=== PATIENT | female | born 1990 | race Caucasian/White ===

== ENCOUNTER 2017-04-14 13:48 | Emergency (ER) | payer MEDICAID ==
[2017-04-14] MEDS ORDERED: LIDOCAINE 1%/EPINEPHRINE INJ 20 ML VIAL INJ ONE (14:10)
--- NOTE | 2017-04-14 14:10 | ER Document Report ---
ED Psych Disorder / Suicide - General Mode of Arrival: Medic Information source: Patient - HPI Patient complains to provider of: Self injury Onset: Just prior to arrival Onset was: Sudden Suicide Risk Factors: Bipolar, Schizophrenia, Substance abuse Situational problems related to: Other - ex- Suicide Attempt Method: Stabbing/Cutting Injury to: Wrist - Left <HOMER CASTILLO - Last Filed: 04/14/17 14:34> <BENITA NELSON - Last Filed: 04/14/17 15:56> <JOI MORENO - Last Filed: 04/15/17 12:09> - General Chief Complaint: Laceration Stated Complaint: SELF INFLICTED INJURY/LEFT WRIST INJURY Time Seen by Provider: 04/14/17 14:02 Notes: Patient is a 27-year-old female presenting to the emergency department concerned of a self-inflicted wrist laceration that occurred approximately 1 hour prior to arrival. Patient states she used a box gluer and was mad at her ex- because "he wouldnt love her anymore and it hurt." Patient denies suicidal ideation at this time. Patient does admit that she was trying to kill herself when she cut her wrist, but she was drunk at the time. Patient states she drank heavily last night. Patient reports having cut herself in the past on her leg, but laceration to the distal she was ever done and she was "amazed by how it looked." Patient states that he has a history of substance abuse, but now she only uses [id number] cough medication. Patient states that her prior diagnosis is schizophrenia, bipolar disorder. Patient states she is at a depressed time in her life, and was recently put on Celexa, which she has not taken for a few weeks. (HOMER CASTILLO) - Related Data Allergies/Adverse Reactions: Penicillins Allergy (Verified 04/14/17 14:15) Home Medications: Current Home Medications Amitriptyline HCl [Elavil 100 mg Tablet] 100 mg PO DAILY 04/14/17 [History] Cholecalciferol (Vitamin D3) [Vitamin D3] 1,000 unit PO DAILY 04/14/17 [History] Citalopram Hydrobromide [Celexa 20 mg Tablet] 20 mg PO DAILY 04/14/17 [History] Docusate Sodium [Dok] 100 mg PO DAILY 04/14/17 [History] Hydroxyzine Pamoate 50 mg PO QHS 04/14/17 [History] Risperidone [Risperdal] 3 mg PO DAILY 04/14/17 [History] Past Medical History - General Information source: Patient - Social History Smoking Status: Current Every Day Smoker Cigarette use (# per day): Yes - 20 Frequency of alcohol use: Heavy Drug Abuse: Other - Cough syrup Family History: Reviewed & Not Pertinent Psychiatric Medical History: Reports: Hx Schizoaffective Disorder <ANNAHOMER - Last Filed: 04/14/17 14:34> Review of Systems - Review of Systems Constitutional: No symptoms reported EENT: No symptoms reported Cardiovascular: No symptoms reported Respiratory: No symptoms reported Gastrointestinal: No symptoms reported Genitourinary: No symptoms reported Female Genitourinary: No symptoms reported Musculoskeletal: No symptoms reported Skin: No symptoms reported Hematologic/Lymphatic: No symptoms reported Neurological/Psychological: See HPI, Depression. denies: Suicidal ideation <ANNAHOMER - Last Filed: 04/14/17 14:34> Physical Exam - Vital signs Interpretation: Normal - General General appearance: Alert - HEENT Head: Normocephalic, Atraumatic Eyes: Normal Pupils: PERRL - Respiratory Respiratory status: No respiratory distress Chest status: Nontender Breath sounds: Normal Chest palpation: Normal - Cardiovascular Rhythm: Regular Heart sounds: Normal auscultation Murmur: No - Abdominal Inspection: Normal Distension: No distension Bowel sounds: Normal Tenderness: Nontender Organomegaly: No organomegaly - Back Back: Normal, Nontender - Extremities General lower extremity: Normal inspection, Nontender Forearm: Laceration - 11 cm laceration to the distal volar ulnar wrist, no neurovascular involvement - Neurological Neuro grossly intact: Yes Cognition: Normal Orientation: AAOx4 [place] Coma Scale Eye Opening: Spontaneous Luis Alberto Coma Scale Verbal: Oriented Luis Alberto Coma Scale Motor: Obeys Commands [place] Coma Scale Total: 15 Speech: Normal Sensory: Normal - Psychological Associated symptoms: Manic - Skin Skin Temperature: Warm Skin Moisture: Dry Skin Color: Other - See extremity exam <ANNAHOMER - Last Filed: 04/14/17 14:34> Course <ANNAHOMER - Last Filed: 04/14/17 14:34> - Laboratory Result Diagrams: 04/14/17 14:30 04/14/17 14:30 - EKG Interpretation by Me EKG shows normal: Sinus rhythm, [place], Intervals, QRS Complexes, ST-T Waves Rate: Normal - 89 Rhythm: NSR <BENITA NELSON - Last Filed: 04/14/17 15:56> - Laboratory Result Diagrams: 04/14/17 14:30 04/14/17 14:30 <JOI MORENO - Last Filed: 04/15/17 12:09> - Re-evaluation Re-evalutation: 04/15/17 12:08 After performing a Medical Screening Examination, I estimate there is LOW risk for any life threatening mental health issues. At this time the patient looks extremely well and has not attempted severe self harm. I have reevaluated this patient multiple times and no significant life threatening changes are noted. The patient and I have discussed the diagnosis and risks, and we agree with discharging home with close follow-up with the understanding that symptoms and presentations can change. We also discussed returning to the Emergency Department immediately if new or worsening symptoms occur. We have discussed the symptoms which are most concerning (hallucinations, thoughts or actions of self harm or harm to others) that necessitate immediate return. (JOI MORENO) - Vital Signs Vital signs: Temp Pulse Resp BP Pulse Ox 98.0 F 85 18 139/80 H 100 04/15/17 06:54 04/15/17 06:54 04/15/17 06:54 04/15/17 06:54 04/15/17 06:54 - Laboratory Laboratory results interpreted by me: 04/14/17 14:30 Chloride 109 H AST 68 H ALT 121 H Salicylates < 1.0 L Acetaminophen < 10 L Procedures - Laceration/Wound Repair Left Volar Arm Time completed: 15:35 Wound length (cm): 11 Wound's Depth, Shape: Into muscle, Linear Laceration pre-procedure: Chloraprep applied, Sterile drapes applied Anesthetic type: 1% Lidocaine w/epi Volume Anesthetic (mLs): 14 Wound explored: Clean, No foreign body removed Irrigated w/ Saline (mLs): 40 Wound Debrided: Minimal Suture Size/Type: Other - Wound closed with 22 george Post-procedure wound care: Sterile dressing applied Post-procedure NV exam normal: Yes Complications: No <BENITA NELSON - Last Filed: 04/14/17 15:56> Discharge <HOMER CASTILLO - Last Filed: 04/14/17 14:34> <BENITA NELSON - Last Filed: 04/14/17 15:56> <JOI MORENO - Last Filed: 04/15/17 12:09> - Discharge Clinical Impression: Suicidal ideation, Self-inflicted injury, Dextromethorphan use disorder, mild, abuse Forearm laceration Qualifiers: Encounter type: initial encounter Laterality: left Qualified Code(s): S51.812A - Laceration without foreign body of left forearm, initial encounter Condition: Stable Disposition: PSYCH HOSP/UNIT Instructions: Laceration Care ([facility]) Additional Instructions: Follow up in 10 days for removal of george or immediately if there are any concerns at all. Prescriptions: Benztropine Mesylate [Cogentin 1 mg Tablet] 1 tab PO DAILY #30 tab Cephalexin Monohydrate [Keflex 500 mg Capsule] 500 mg PO QID #40 capsule Haloperidol [Haldol 5 mg Tablet] 5 mg PO BID #30 tablet Scribe Attestation: 04/14/17 15:36 I personally performed the services described in the documentation, reviewed and edited the documentation which was dictated to the scribe in my presence, and it accurately records my words and actions. (BENITA NELSON) Scribe Documentation - Scribe Written by Viniibdoni:: Alexandra Boogie, 04/14/2017 1410 acting as scribe for :: Yolande <HOMER CASTILLO - Last Filed: 04/14/17 14:34>
[2017-04-14 14:51] LABS: ABSOLUTE LYMPHOCYTES (AUTO) 1.8 10^3/uL (0.5-4.7); ABSOLUTE MONOCYTES (AUTO) 0.7 10^3/uL (0.1-1.4); ABSOLUTE NEUT (AUTO) 3.5 10^3/uL (1.7-8.2); BASOPHILS % (AUTO) 0.2 % (0-2); EOSINOPHILS % (AUTO) 0.4 % (0-6); HEMATOCRIT 39.8 % (36.0-47.0); HGB HCT DIFFERENCE -0.8; LYMPHOCYTES % (AUTO) 29.9 % (13-45); MEAN CORPUSCULAR HGB CONC 32.7 g/dL (32.0-36.0); MEAN CORPUSCULAR VOLUME 92 fl (80-97); RED BLOOD COUNT 4.34 10^6/uL (3.72-5.28); RED CELL DISTRIBUTION WIDTH 13.9 % (11.5-14.0); SEGMENTED NEUTROPHILS % (AUTO) 57.5 % (42-78)
[2017-04-14 14:56] LABS: AMORPHOUS SEDIMENT,URINE TRACE /HPF; APPEARANCE,URINE CLOUDY; BILIRUBIN,URINE NEGATIVE (NEGATIVE); GLUCOSE, URINE NEGATIVE (NEGATIVE); KETONES,URINE NEGATIVE (NEGATIVE); LEUKOCYTE ESTERASE,URINE NEGATIVE (NEGATIVE); NITRITE,URINE NEGATIVE (NEGATIVE); PROTEIN,URINE NEGATIVE (NEGATIVE); URINE SPECIFIC GRAVITY 1.015; UROBILINOGEN,URINE NEGATIVE mg/dL (<2.0)
[2017-04-14 15:12] LABS: ALANINE AMINOTRANSFERASE 121 U/L (9-52); ALBUMIN 4.3 g/dL (3.5-5.0); ALCOHOL 96 mg/dL (NONE DETECTED); ALKALINE PHOSPHATASE 87 U/L (38-126); ANION GAP 6 (5-19); ASPARTATE AMINO TRANSFERASE 68 U/L (14-36); BILIRUBIN,DIRECT 0.2 mg/dL (0.0-0.4); BILIRUBIN,TOTAL 0.4 mg/dL (0.2-1.3); BLOOD UREA NITROGEN 11 mg/dL (7-20); CALCIUM 9.1 mg/dL (8.4-10.2); CARBON DIOXIDE 26 mmol/L (22-30); CHLORIDE 109 mmol/L (98-107); CREATININE RESULT 0.72 mg/dL (0.52-1.25); GLUCOSE 93 mg/dL (75-110); POTASSIUM 4.2 mmol/L (3.6-5.0); SODIUM 140.7 mmol/L (137-145); TOTAL PROTEIN 7.6 g/dL (6.3-8.2)
[2017-04-14 15:28] LABS: URINE BARBITURATES SCREEN NEGATIVE; URINE METHADONE SCREEN NEGATIVE; URINE OPIATES LOW NEGATIVE; URINE PHENCYCLIDINE SCREEN UNCONFIRMED POSITIVE
--- NOTE | 2017-04-14 16:20 | EKG REPORT ---
SEVERITY:- NORMAL ECG - SINUS RHYTHM : Confirmed by: Amelia Paige MD 14-Apr-2017 16:19:45
[2017-04-14] MEDS ORDERED: OLANZAPINE INJ/PF 10 MG SDV IM ONE (19:20)
[2017-04-14] MEDS ORDERED: HALOPERIDOL 5 MG TABLET PO ONE (20:02)
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
--- NOTE | 2017-04-15 09:04 | ER Document Report ---
Doctor's Note Notes: 04/15/17 12:07 As the rounding physician for our psychiatric patients, I have reviewed the chart, vitals, lab work. Patient has been examined and noted to be stable . I am awaiting mental health in put.
[2017-04-15 12:25] VITALS: BP 139/86
--- NOTE | 2017-04-15 12:40 | ER Document Report ---
ED Psych Disorder / Suicide - General Chief Complaint: Suicidal Ideation Stated Complaint: SELF INFLICTED INJURY/LEFT WRIST INJURY Time Seen by Provider: 04/14/17 14:02 Mode of Arrival: Medic Information source: Patient - HPI Patient complains to provider of: Self injury Onset: Just prior to arrival - 1 hr prior to arrival Suicide Risk Factors: Age <19, Bipolar, Loss of rational thought, No spouse, Substance abuse Situational problems related to: Spouse - Ex (9 years ) Suicide Attempt Method: Stabbing/Cutting Injury to: Wrist Associated symptoms: Anxious, Labile, Manic, Psychomotor agitation Notes: Patient is a 27-year-old female presenting to the emergency department concerned of a self-inflicted wrist laceration that occurred approximately 1 hour prior to arrival. Patient states she used a weigh box tender and was mad at her ex- because "he wouldnt love her anymore and it hurt." Patient denies suicidal ideation at this time. Patient does admit that she was trying to kill herself when she cut her wrist, but she was drunk at the time. Patient states she drank heavily last night. Patient reports having cut herself in the past on her leg, but laceration to the distal she was ever done and she was "amazed by how it looked." Patient states that he has a history of substance abuse, but now she only uses [id number] cough medication. Patient states that her prior diagnosis is schizophrenia, bipolar disorder. Patient states she is at a depressed time in her life, and was recently put on Celexa, which she has not taken for a few weeks. Patient states the haladol really worked and she finally got some sleep. she had not reported sleep for "days." She continued to disclose that she has been working on transferring her Medicaid so has not had set up surfaces here. She continued disclosed that she is willing to accept local resources however may make an appointment with her previous physician for continued medication management until her Medicaid goes through. Patient is alert and orientated to person place time and circumstance. Mood is euthymic with congruent affect; it is noted patient is easily agitated. patient endorses suicidal gesture however denies suicidal ideation. Patient denies homicidal ideation. Patient denies auditory visual hallucinations; no delusions are noted. thought process is organized and liner. Conversational speech was within normal rate tone and prosody. Intellectual abilities appear to be within average range. Attention, concentration, insight, judgment, impulse control are fair. Polysubstance abuse Bipolar unspecified Impression/ plan: Patient is recommended for rescind of IVC and considered psychiatrically clear for discharge. Patient does not meet IVC criteria per [place] GS 120 2C. Patient denies suicidal and homicidal ideation. Patient endorses suicidal gesture while intoxicated and under the influence of cough syrup. Patient discloses she was not trying to "actually kill herself. Patient is recommended to follow-up with outpatient services for both mental health and substance abuse. Dr. Adamson was consulted on the care and management of this patient; attending physician is in agreement with recommendations and disposition. - Related Data Allergies/Adverse Reactions: Penicillins Allergy (Verified 04/14/17 14:15) Home Medications: Current Home Medications Amitriptyline HCl [Elavil 100 mg Tablet] 100 mg PO DAILY 04/14/17 [History] Cholecalciferol (Vitamin D3) [Vitamin D3] 1,000 unit PO DAILY 04/14/17 [History] Citalopram Hydrobromide [Celexa 20 mg Tablet] 20 mg PO DAILY 04/14/17 [History] Docusate Sodium [Dok] 100 mg PO DAILY 04/14/17 [History] Hydroxyzine Pamoate 50 mg PO QHS 04/14/17 [History] Risperidone [Risperdal] 3 mg PO DAILY 04/14/17 [History] Past Medical History - General Information source: Patient - Social History Smoking Status: Current Every Day Smoker Cigarette use (# per day): Yes - 20 Chew tobacco use (# tins/day): No Frequency of alcohol use: Heavy Drug Abuse: Other - Cough syrup Family History: Reviewed & Not Pertinent Psychiatric Medical History: Reports: Hx Bipolar Disorder, Hx Depression, Hx Schizoaffective Disorder, Hx Schizophrenia - Immunizations Hx Diphtheria, Pertussis, Tetanus Vaccination: No Physical Exam - Vital signs Vitals: Temp Pulse Resp BP Pulse Ox 99.4 F 91 16 126/72 H 98 04/14/17 13:59 04/14/17 13:59 04/14/17 13:59 04/14/17 13:59 04/14/17 13:59 Course - Vital Signs Vital signs: Temp Pulse Resp BP Pulse Ox 98.6 F 93 16 139/86 H 99 04/15/17 12:18 04/15/17 12:18 04/15/17 12:18 04/15/17 12:18 04/15/17 12:18 - Laboratory Result Diagrams: 04/14/17 14:30 04/14/17 14:30 Laboratory results interpreted by me: 04/14/17 14:30 Chloride 109 H AST 68 H ALT 121 H Salicylates < 1.0 L Acetaminophen < 10 L Discharge - Discharge Clinical Impression: Suicidal ideation, Self-inflicted injury, Dextromethorphan use disorder, mild, abuse Forearm laceration Qualifiers: Encounter type: initial encounter Laterality: left Qualified Code(s): S51.812A - Laceration without foreign body of left forearm, initial encounter Condition: Stable Disposition: PSYCH HOSP/UNIT Instructions: Laceration Care ([facility]) Additional Instructions: Follow up in 10 days for removal of george or immediately if there are any concerns at all. Prescriptions: Benztropine Mesylate [Cogentin 1 mg Tablet] 1 tab PO DAILY #30 tab Cephalexin Monohydrate [Keflex 500 mg Capsule] 500 mg PO QID #40 capsule Haloperidol [Haldol 5 mg Tablet] 5 mg PO BID #30 tablet
== END 2017-04-15 12:20 ==
LOC: ER 13:48
PROC: 0HQEXZZ Repair Left Lower Arm Skin, External Approach (ICD-10-PCS; principal; 2017-04-14)
DX: S66.922A Laceration of unspecified muscle, fascia and tendon at wrist and hand level, left hand, initial encounter (principal); S61.512A Laceration without foreign body of left wrist, initial encounter; X78.8XXA Intentional self-harm by other sharp object, initial encounter; F31.9 Bipolar disorder, unspecified; T43.226A Underdosing of selective serotonin reuptake inhibitors, initial encounter; Z91.14 Patient's other noncompliance with medication regimen; F19.10 Other psychoactive substance abuse, uncomplicated; F17.210 Nicotine dependence, cigarettes, uncomplicated; Z88.0 Allergy status to penicillin
CPT/HCPCS: 93005; 99285; 36415; 80307 ×4; 84703; 85025; 80053; 81001; 93010; 12004; J3490 ×2

== ENCOUNTER 2017-04-20 22:56 | Emergency (ER) | payer MEDICAID, OTHER ==
--- NOTE | 2017-04-20 23:07 | ER Document Report ---
Addendum entered and electronically signed by TANESHA PÉREZ LPC 04/21/17 11: 59: ED Psych Disorder / Suicide - General Chief Complaint: Psych Problem Stated Complaint: POSSIBLE ETOH Time Seen by Provider: 04/20/17 23:01 - HPI Notes: Obtained collateral from patient's mother, Kayli Quintanilla ([phone]), on at 1150. Patient provided contact information and made initial phone call. She then handed the phone to this clinician and verbally gave consent to speak to mother freely. Mother identified patient has been the [facility] multiple times recently and she is supposed to be flagged so other hospitals know of her. She stated patient was in [place] for 6 weeks this last time, then went to a fpc in [place] for 6 weeks, she refused to stay there, remained sober for a week, and then went back to using. She acknowledged she got patient an apartment in [place] (mother lives in [place]) after the [place] fpc. She reported patient has diagnoses of Schizophrenia, Borderline Personality Disorder, Depression, and more. She acknowledged when patient was 6 years old she said she wanted to so mother took her to a psychiatrist. As a child patient was diagnosed with ADD and as "gifted." She stated patient would laugh uncontrollably at nothing as a child then suddenly start crying. Mother acknowledged patient experimented with drugs her senior year of high school which only worsened things. Mother described patient as vindictive, hateful, and has been violent (all towards mother). She stated patient has a mental health history and takes mediation but the problem is the drug use. Mother will be coming to provide transportation for patient from ED to her apartment. - Related Data Allergies/Adverse Reactions: Penicillins Allergy (Verified 04/14/17 14:15) Home Medications: Current Home Medications Cephalexin Monohydrate [Keflex 500 mg Capsule] 500 mg PO Q6 04/21/17 [History] Addendum entered and electronically signed by TANESHA PÉREZ LPC 04/21/17 11: 18: Discharge - Discharge Clinical Impression: Dextromethorphan use disorder, mild, abuse Alcohol intoxication Qualifiers: Complication of substance-induced condition: uncomplicated Qualified Code(s): F10.920 - Alcohol use, unspecified with intoxication, uncomplicated Condition: Stable Disposition: HOME, SELF-CARE Additional Instructions: Alcohol Intoxication and Use Alcohol inhibits individuals. It is advised that prescription medications and over the counter medications not be mixed with Alcohol. Alcohol required medical detoxification due to the physical effects it has on the body. Dextromethorphan (DXM or DM) Intoxication and Use DXM inhibits individuals and mimics an hallucinogenic if used in excess. It is advised that this medication be used only as recommended via directions on bottle. There could be interactions if mixed with other medications (prescribed or over the counter) and alcohol. Depression Your evaluation reveals that you have mental depression. While symptoms may be vague, they often include disturbance of sleep, fatigue, loss of appetite , and general loss of interest in life. While depression may be a side effect of drugs, or a reaction to a major change in your life, many cases have no known cause. If depression is acute, and related to a major loss in your life, you can expect it to clear completely with time. If you have been depressed a long time , are prone to repeated bouts of depression or low mood, or have been thinking of suicide, get help. Depression can be treated with anti-depressant medication and counselling. Long-term depression will often take a few weeks to clear, even with appropriate medication. Follow-up care is important. Contact your physician, the hospital emergency center, crisis line, or your counsellor if you are losing control or having self-destructive thoughts. Suicidal Ideation Suicidal ideation is a common medical term for thoughts about suicide, which may be as detailed as a formulated plan, without the suicidal act itself. Although most people who undergo suicidal ideation do not commit suicide, some go on to make suicide attempts. The range of suicidal ideation varies greatly from fleeting to detailed planning, role playing, and unsuccessful attempts. While thoughts about suicide are common, most people do not carry out serious actions to commit suicide. However, based upon your evalutation and discussion with you, we believe you are currently at risk to act upon your thoughts of suicide. Therefore, you will be admitted to a facility for inpatient care. Patient to go directly to [facility] in order to obtain inpatient substance abuse detoxification. She was instructed to access outpatient mental health and substance abuse services at an agency that accepts self pay ([facility], [facility], [facility]) within the next 5-7 days or after detox and not wait for Medicaid to be processed. Referrals: [facility] [Outside] - Follow up as needed Original Note: ED Psych Disorder / Suicide <YURIY MEANS - Last Filed: 04/20/17 23:07> <TANESHA PÉREZ - Last Filed: 04/21/17 11:50> <SIL WEBB - Last Filed: 04/21/17 12:09> - General Chief Complaint: ETOH Abuse Stated Complaint: POSSIBLE ETOH Time Seen by Provider: 04/20/17 23:01 Notes: Patient is a 27-year-old female, past medical history schizophrenia, bipolar, prior suicide attempts by cutting, alcohol abuse, presents by EMS after she was having thoughts of hurting herself and other people after she drank 18 beers, one bottle of vodka and 4 ounces of cough syrup. On arrival to the ER, she is cooperative and states that she was having suicidal thoughts, but does not have any thoughts currently. She has not had any sleep for the past 2 days. She cut her wrist and they were stapled 6 days ago at [facility]. No discharge from the wound. Denies IV drugs, suicide attempt today, chest pain, shortness of breath , head injury, nausea or vomiting. (YURIY MEANS) - [facility] Notes: Conducted initial psychiatric evaluation on 04/21/17 at 1025. Patient is a 27 year old female who presented to the ED last night via EMS for ETOH intoxication and SI. Note patient was seen by the [facility] Behavioral Health team on 04/14/17 (initial) and 04/15/17 (re-evaluation) for similar etiology ( drug intoxication and SI). She was discharged with a script for Haldol and instructed to follow up with an outpatient provider. Patient stated she got scared last night after falling, busting her lip open, blood was everywhere, she had previously chipped teeth from falling, and so she called for help. Today patient reported she did fill the script for Haldol. She denied having follow up with an outpatient provider because she is waiting for her Medicaid to go through. Provided psycho-education on providers who take self pay and Medicaid patients. She seemed to know this already AEB her response that the provider can often back pay. She reported "my life is in complete disorder, I suffer, I am addict, there is no paige if I am no using, I don't want to endure this, I am not suicidal I want to live, and I would like a lobotomy." She identified when she is under the influence she is a danger to self and commented on how she cut her wrist previously. She stated "you wouldn't want to see me in public drunk." She identified she has had previous SA treatment, she said she didn't want to talk about the last night, said it is difficult, people don't know how to treat her because her drug of choice is cough syrup (for 8 years). She then went on talking about how cough syrup is chemically related to Codeine and it makes pain go away. She talked about wanting replacement ( Methadone) therapy. She stated she has withdrawal symptoms of night sweats, irritability, and sickness when she does not take the cough syrup. She stated she needs something else because "no drug means she is not organized, cannot think straight, and can't learn." Patient talked about having a cat and other responsibilities to tend to. Patient was alert and oriented to at least person, place, and situation. Mood was irritable with congruent affect. She was cooperative though. She denied current SI/HI, talked about wanting to live but being an addict, she talked about having to care for her cat and other responsibilities, and she discussed treatment options. She did not appear to be responding to internal stimuli AEB answering questions and elaborating appropriately when addressed and staying on topic. Thought processes are linear. Conversational speech was somewhat slurred. She could barely keep her eyes open (lethargy), but did, and often her eyelids would get heavy and close. Intellectual abilities are estimated to be average. Insight, judgment and impulse control are fair AEB calling for help having falling and busting her lip open, especially given her intoxication. Diagnosis: Polysubstance 303.00 (10.229) Alcohol Intoxication, With Use Disorder, Severe Cough Syrup (likely why UDS positive for Phencyclidine) 311 (F32.9) Unspecified Depressive Disorder Impression/Plan: Recommendation to discharge patient. Suggested she go directly from the ED to [facility] for inpatient detox. Patient stated she had to tend to her cat, call her mother, and take care of other responsibilities before going to detox. Provided her with outpatient resource list and encouraged her to follow up with SA/MH provider who takes self pay ([facility], [facility], [facility]) until her Medicaid is processed. Also provided contact information for all 3 [facility] detox locations ([facility], [facility]) and [place]. Consulted with Dr. Adamson regarding the management and care of patient. (TANESHA PÉREZ) - Related Data Allergies/Adverse Reactions: Penicillins Allergy (Verified 04/14/17 14:15) Home Medications: Current Home Medications Cephalexin Monohydrate [Keflex 500 mg Capsule] 500 mg PO Q6 04/21/17 [History] Past Medical History - General Information source: Patient, Emergency Med Personnel - Social History Smoking Status: Never Smoker Family History: Reviewed & Not Pertinent Psychiatric Medical History: Reports: Hx Bipolar Disorder, Hx Depression, Hx Schizoaffective Disorder, Hx Schizophrenia - Immunizations Hx Diphtheria, Pertussis, Tetanus Vaccination: No <YURIY MEANS - Last Filed: 04/20/17 23:07> Review of Systems <YURIY MEANS - Last Filed: 04/20/17 23:07> <TANESHA PÉREZ - Last Filed: 04/21/17 11:50> <SIL WEBB - Last Filed: 04/21/17 12:09> - Review of Systems Notes: REVIEW OF SYSTEMS: CONSTITUTIONAL: -fevers, -chills EENT: -eye pain, -difficulty swallowing, -nasal congestion CARDIOVASCULAR:-chest pain, -syncope. RESPIRATORY: -cough, -SOB GASTROINTESTINAL: -abdominal pain, - nausea, -vomiting, -diarrhea GENITOURINARY: -dysuria, -hematuria MUSCULOSKELETAL: -back pain, -neck pain SKIN: -rash or skin lesions. HEMATOLOGIC: -easy bruising or bleeding. LYMPHATIC: -swollen, enlarged glands. NEUROLOGICAL: -altered mental status or loss of consciousness, -headache, - neurologic symptoms PSYCHIATRIC: +SI and HI, +ETOH abuse, +insomnia, -anxiety, +depression. ALL OTHER SYSTEMS REVIEWED AND NEGATIVE. (YURIY MEANS) Physical Exam <YURIY MEANS - Last Filed: 04/20/17 23:07> <TANESHA PÉREZ - Last Filed: 04/21/17 11:50> <SIL WEBB - Last Filed: 04/21/17 12:09> - Vital signs Vitals: Temp Pulse Resp BP Pulse Ox 97.2 F 90 18 130/80 H 100 04/20/17 23:01 04/20/17 23:01 04/20/17 23:01 04/20/17 23:01 04/20/17 23:01 - Notes Notes: PHYSICAL EXAMINATION: GENERAL: Well-appearing, well-nourished and in no acute distress. Clinically intoxicated. HEAD: Atraumatic, normocephalic. EYES: Pupils equal round and reactive to light, extraocular movements intact, sclera anicteric, conjunctiva are normal. ENT: nares patent, oropharynx clear without exudates. Moist mucous membranes. NECK: Normal range of motion, supple without lymphadenopathy LUNGS: Breath sounds clear to auscultation bilaterally and equal. No wheezes rales or rhonchi. HEART: Regular rate and rhythm without murmurs ABDOMEN: Soft, nontender, normoactive bowel sounds. No guarding, no rebound. No masses appreciated. EXTREMITIES: Left wrist laceration with george and no discharge or redness, normal range of motion, no pitting or edema. No cyanosis. NEUROLOGICAL: Cranial nerves grossly intact. Normal speech, normal gait. Normal sensory and motor exams. PSYCH: Cooperative, intoxicated, manic SKIN: Warm, Dry, normal turgor, no rashes or lesions noted. (YURIY MEANS) Course <YURIY MEANS - Last Filed: 04/20/17 23:07> - Laboratory Result Diagrams: 04/20/17 23:10 04/20/17 23:10 <TANESHA PÉREZ - Last Filed: 04/21/17 11:50> - Laboratory Result Diagrams: 04/20/17 23:10 04/20/17 23:10 <SIL WEBB - Last Filed: 04/21/17 12:09> - Re-evaluation Re-evalutation: Patient intoxicated in the emergency room. She told that she was having suicidal thoughts and homicidal thoughts, but denies any SI or HI to myself or EMS. Will watch until she is clinically sober and have mental health evaluate her in the morning. (YURIY MEANS) 04/21/17 12:09 Laceration healing well, minimal erythema and she is already on Keflex. Patient is not suicidal at this time, counseled regarding the need for treatment for substance abuse. Discharged to home, mother will come and pick her up (SIL WEBB) - Vital Signs Vital signs: Temp Pulse Resp BP Pulse Ox 98.4 F 80 16 139/73 H 98 04/21/17 09:40 04/21/17 09:40 04/21/17 09:40 04/21/17 09:40 04/21/17 09:40 - Laboratory Laboratory results interpreted by me: 04/20/17 04/20/17 23:10 23:25 Sodium 146.7 H Chloride 113 H AST 37 H ALT 65 H Ur Leukocyte Esterase MODERATE H Salicylates < 1.0 L Acetaminophen < 10 L Discharge <YURIY MEANS - Last Filed: 04/20/17 23:07> <TANESHA PÉREZ - Last Filed: 04/21/17 11:50> <SIL WEBB - Last Filed: 04/21/17 12:09> - Discharge Clinical Impression: Dextromethorphan use disorder, mild, abuse Alcohol intoxication Qualifiers: Complication of substance-induced condition: uncomplicated Qualified Code(s): F10.920 - Alcohol use, unspecified with intoxication, uncomplicated Forearm laceration Qualifiers: Encounter type: initial encounter Laterality: left Qualified Code(s): S51.812A - Laceration without foreign body of left forearm, initial encounter Condition: Stable Disposition: HOME, SELF-CARE Additional Instructions: Alcohol Intoxication and Use Alcohol inhibits individuals. It is advised that prescription medications and over the counter medications not be mixed with Alcohol. Alcohol required medical detoxification due to the physical effects it has on the body. Dextromethorphan (DXM or DM) Intoxication and Use DXM inhibits individuals and mimics an hallucinogenic if used in excess. It is advised that this medication be used only as recommended via directions on bottle. There could be interactions if mixed with other medications (prescribed or over the counter) and alcohol. Depression Your evaluation reveals that you have mental depression. While symptoms may be vague, they often include disturbance of sleep, fatigue, loss of appetite , and general loss of interest in life. While depression may be a side effect of drugs, or a reaction to a major change in your life, many cases have no known cause. If depression is acute, and related to a major loss in your life, you can expect it to clear completely with time. If you have been depressed a long time , are prone to repeated bouts of depression or low mood, or have been thinking of suicide, get help. Depression can be treated with anti-depressant medication and counselling. Long-term depression will often take a few weeks to clear, even with appropriate medication. Follow-up care is important. Contact your physician, the hospital emergency center, crisis line, or your counsellor if you are losing control or having self-destructive thoughts. Suicidal Ideation Suicidal ideation is a common medical term for thoughts about suicide, which may be as detailed as a formulated plan, without the suicidal act itself. Although most people who undergo suicidal ideation do not commit suicide, some go on to make suicide attempts. The range of suicidal ideation varies greatly from fleeting to detailed planning, role playing, and unsuccessful attempts. While thoughts about suicide are common, most people do not carry out serious actions to commit suicide. However, based upon your evalutation and discussion with you, we believe you are currently at risk to act upon your thoughts of suicide. Therefore, you will be admitted to a facility for inpatient care. Patient to go directly to [facility] in order to obtain inpatient substance abuse detoxification. She was instructed to access outpatient mental health and substance abuse services at an agency that accepts self pay ([facility], [facility], [facility]) within the next 5-7 days or after detox and not wait for Medicaid to be processed. Referrals: [facility] [Outside] - Follow up as needed (Immediately upon discharge from emergency department)
[2017-04-20 23:34] LABS: ABSOLUTE LYMPHOCYTES (AUTO) 1.7 10^3/uL (0.5-4.7); ABSOLUTE MONOCYTES (AUTO) 0.5 10^3/uL (0.1-1.4); ABSOLUTE NEUT (AUTO) 3.2 10^3/uL (1.7-8.2); BASOPHILS % (AUTO) 0.5 % (0-2); EOSINOPHILS % (AUTO) 0.5 % (0-6); HEMATOCRIT 39.9 % (36.0-47.0); HEMOGLOBIN 13.1 g/dL (12.0-15.5); HGB HCT DIFFERENCE -0.6; LYMPHOCYTES % (AUTO) 31.5 % (13-45); MEAN CORPUSCULAR HEMOGLOBIN 30.1 pg (27.0-33.4); MEAN CORPUSCULAR HGB CONC 32.9 g/dL (32.0-36.0); MEAN CORPUSCULAR VOLUME 92 fl (80-97); MONOCYTES % (AUTO) 9.3 % (3-13); RED BLOOD COUNT 4.36 10^6/uL (3.72-5.28); RED CELL DISTRIBUTION WIDTH 13.7 % (11.5-14.0); SEGMENTED NEUTROPHILS % (AUTO) 58.2 % (42-78); WHITE BLOOD COUNT 5.5 10^3/uL (4.0-10.5)
[2017-04-20 23:48] LABS: ALANINE AMINOTRANSFERASE 65 U/L (9-52); ALBUMIN 4.1 g/dL (3.5-5.0); ALCOHOL 193 mg/dL (NONE DETECTED); ALKALINE PHOSPHATASE 85 U/L (38-126); ANION GAP 7 (5-19); ASPARTATE AMINO TRANSFERASE 37 U/L (14-36); BILIRUBIN,DIRECT 0.3 mg/dL (0.0-0.4); BILIRUBIN,TOTAL 0.3 mg/dL (0.2-1.3); BLOOD UREA NITROGEN 8 mg/dL (7-20); CALCIUM 8.9 mg/dL (8.4-10.2); CARBON DIOXIDE 27 mmol/L (22-30); CHLORIDE 113 mmol/L (98-107); CREATININE RESULT 0.76 mg/dL (0.52-1.25); GLUCOSE 98 mg/dL (75-110); POTASSIUM 4.2 mmol/L (3.6-5.0); SODIUM 146.7 mmol/L (137-145); TOTAL PROTEIN 7.5 g/dL (6.3-8.2)
[2017-04-20 23:50] LABS: APPEARANCE,URINE CLEAR; BILIRUBIN,URINE NEGATIVE (NEGATIVE); GLUCOSE, URINE NEGATIVE (NEGATIVE); KETONES,URINE NEGATIVE (NEGATIVE); LEUKOCYTE ESTERASE,URINE MODERATE (NEGATIVE); NITRITE,URINE NEGATIVE (NEGATIVE); PROTEIN,URINE NEGATIVE (NEGATIVE); URINE SPECIFIC GRAVITY 1.004; UROBILINOGEN,URINE NEGATIVE mg/dL (<2.0)
[2017-04-21 00:04] LABS: URINE BARBITURATES SCREEN NEGATIVE; URINE OPIATES LOW NEGATIVE; URINE PHENCYCLIDINE SCREEN UNCONFIRMED POSITIVE
[2017-04-21 00:11] LABS: URINE METHADONE SCREEN NEGATIVE
[2017-04-21] MEDS ORDERED: LORAZEPAM INJ 2 MG/1 ML VIAL IM ONE (00:52)
--- NOTE | 2017-04-21 00:54 | ER Document Report ---
Doctor's Note Notes: 04/21/17 00:53 Called by nurse to come see the patient. Patient is becoming aggressive hostile and stating that she is "bat shit crazy". Patient is requesting a lobotomy at the bedside. Sedating. And give her a shot of Ativan IM.
[2017-04-21] MEDS ORDERED: OLANZAPINE 5 MG TABLET PO SCH (10:00)
--- NOTE | 2017-04-21 11:21 | EKG REPORT ---
SEVERITY:- BORDERLINE ECG - SINUS RHYTHM BORDERLINE PROLONGED QT INTERVAL : Confirmed by: Leanna Harrell 21-Apr-2017 11:20:29
[2017-04-21 13:16] VITALS: BP 137/69
[2017-04-21] MEDS ORDERED: CEPHALEXIN 500 MG CAPSULE PO SCH (15:00)
[2017-04-21] MEDS ORDERED: RISPERIDONE 1 MG TABLET PO SCH (18:00)
[2017-04-21] MEDS ORDERED: HYDROXYZINE PAMOATE 50 MG CAPSULE PO SCH (22:00)
[2017-04-21] MEDS ORDERED: HALOPERIDOL 5 MG TABLET PO SCH (22:00)
[2017-04-22] MEDS ORDERED: BENZTROPINE MESYLATE 1 MG TABLET PO SCH (10:00)
[2017-04-22] MEDS ORDERED: CITALOPRAM HYDROBROMIDE 20 MG TABLET PO SCH (10:00)
== END 2017-04-21 13:15 | disposition home or self-care (01) ==
LOC: ER 22:56
DX: F10.229 Alcohol dependence with intoxication, unspecified (principal); S51.812A Laceration without foreign body of left forearm, initial encounter; X58.XXXA Exposure to other specified factors, initial encounter; F19.10 Other psychoactive substance abuse, uncomplicated; F32.9 Major depressive disorder, single episode, unspecified; Z88.0 Allergy status to penicillin; R45.850 Homicidal ideations
CPT/HCPCS: 93005; 99284; 96372; 36415; 80307 ×4; 84703; 85025; 80053; 81001; 93010; J2060

== ENCOUNTER 2017-04-22 16:38 | Emergency (ER) | payer MEDICAID ==
[2017-04-22 17:16] LABS: ABSOLUTE EOSINOPHILS # (AUTO) 0.1 10^3/uL (0.0-0.6); ABSOLUTE LYMPHOCYTES (AUTO) 3.5 10^3/uL (0.5-4.7); ABSOLUTE MONOCYTES (AUTO) 0.8 10^3/uL (0.1-1.4); ABSOLUTE NEUT (AUTO) 4.3 10^3/uL (1.7-8.2); BASOPHILS % (AUTO) 0.5 % (0-2); EOSINOPHILS % (AUTO) 1.2 % (0-6); HEMATOCRIT 40.1 % (36.0-47.0); HEMOGLOBIN 13.2 g/dL (12.0-15.5); HGB HCT DIFFERENCE -0.5; MEAN CORPUSCULAR HEMOGLOBIN 29.9 pg (27.0-33.4); MEAN CORPUSCULAR HGB CONC 32.9 g/dL (32.0-36.0); MEAN CORPUSCULAR VOLUME 91 fl (80-97); MONOCYTES % (AUTO) 9.1 % (3-13); RED CELL DISTRIBUTION WIDTH 14.2 % (11.5-14.0); SEGMENTED NEUTROPHILS % (AUTO) 49.2 % (42-78); WHITE BLOOD COUNT 8.8 10^3/uL (4.0-10.5)
[2017-04-22 17:34] LABS: ALANINE AMINOTRANSFERASE 49 U/L (9-52); ALBUMIN 3.8 g/dL (3.5-5.0); ALKALINE PHOSPHATASE 113 U/L (38-126); ANION GAP 6 (5-19); ASPARTATE AMINO TRANSFERASE 48 U/L (14-36); BILIRUBIN,DIRECT 0.3 mg/dL (0.0-0.4); BILIRUBIN,TOTAL 0.3 mg/dL (0.2-1.3); BLOOD UREA NITROGEN 13 mg/dL (7-20); CALCIUM 9.1 mg/dL (8.4-10.2); CARBON DIOXIDE 29 mmol/L (22-30); CHLORIDE 113 mmol/L (98-107); CREATININE RESULT 0.68 mg/dL (0.52-1.25); GLUCOSE 159 mg/dL (75-110); POTASSIUM 3.9 mmol/L (3.6-5.0); SODIUM 147.5 mmol/L (137-145); TOTAL PROTEIN 7.2 g/dL (6.3-8.2)
[2017-04-22 17:38] LABS: APPEARANCE,URINE CLEAR; BILIRUBIN,URINE NEGATIVE (NEGATIVE); GLUCOSE, URINE NEGATIVE (NEGATIVE); KETONES,URINE NEGATIVE (NEGATIVE); LEUKOCYTE ESTERASE,URINE NEGATIVE (NEGATIVE); NITRITE,URINE NEGATIVE (NEGATIVE); PROTEIN,URINE NEGATIVE (NEGATIVE); URINE SPECIFIC GRAVITY 1.005; UROBILINOGEN,URINE NEGATIVE mg/dL (<2.0)
[2017-04-22 17:44] LABS: ALCOHOL 472 mg/dL (NONE DETECTED)
[2017-04-22 17:53] LABS: URINE BARBITURATES SCREEN NEGATIVE; URINE METHADONE SCREEN NEGATIVE; URINE OPIATES LOW NEGATIVE; URINE PHENCYCLIDINE SCREEN NEGATIVE
[2017-04-22] MEDS ORDERED: NORMAL SALINE 1000 ML 1,000 ML IV PRN (18:16)
--- NOTE | 2017-04-22 18:22 | ER Document Report ---
ED Psych Disorder / Suicide - General Chief Complaint: Psych Problem Stated Complaint: PSYCH EVAL Notes: Patient brought in by EMS after reportedly taking some pills and drinking a large amount of vodka, perhaps as much as 1/5 of vodka. She was hospital and combative with police. They took her into custody and called EMS who transported the patient here. In route, patient was screaming and uncontrollable and they gave her an injection of Haldol 5 mg, Benadryl 25 mg, and Versed 2 mg, all IM. Upon her arrival in the emergency department, patient is barely movable. However, color is good vital signs are normal. Patient has a history of 2 prior visits to this emergency department, both of the previous visits here were within the past 10 days and for psychiatric evaluation patient has a very long, self-inflicted laceration of the left forearm that has been stapled. Appears to be healing well. - Related Data Allergies/Adverse Reactions: Penicillins Allergy (Verified 04/14/17 14:15) Past Medical History - Social History Smoking Status: Unknown if Ever Smoked Frequency of alcohol use: Heavy Family History: Reviewed & Not Pertinent - Patient unable to provide family history. - Medical History Medical History: Other - Patient unable to provide history because she is so intoxicated. Psychiatric Medical History: Reports: Hx Bipolar Disorder, Hx Depression, Hx Schizoaffective Disorder, Hx Schizophrenia - Immunizations Hx Diphtheria, Pertussis, Tetanus Vaccination: No Review of Systems - Review of Systems -: Yes ROS unobtainable due to patient's medical condition - Patient is not able to answer any questions. Physical Exam - Vital signs Vitals: Resp Pulse Ox 23 H 99 04/22/17 16:51 04/22/17 16:51 Interpretation: Normal - Notes Notes: PHYSICAL EXAMINATION: Patient is extremely lethargic and barely moving laying on the stretcher. There was some concern as to whether the patient was actually breathing, although her color remained good and her O2 sat never declined. She did not respond to normal, moderate amount of tactile stimulation but did respond to extreme tactile pressure under the ear or in the upper chest over her clavicle. GENERAL: Well-appearing, in no acute distress. HEAD: Atraumatic, normocephalic. No cranial hematomas or soft spots or tender areas noted EYES: Pupils equal round and reactive to light, but unable to assess extraocular movements. ENT: oropharynx clear without exudates. Moist mucous membranes. NECK: Normal range of motion, supple. LUNGS: Breath sounds clear and equal bilaterally. Multiple small bruises of the upper chest and breasts. No rib tenderness. HEART: Regular rate and rhythm without murmurs. ABDOMEN: Soft, nontender. No guarding or rebound. BACK: No tenderness throughout entire back. EXTREMITIES: Normal range of motion without pain. Very long laceration of the left forearm which is stapled and appears to be healing well. NEUROLOGICAL: Based upon the patient's blood alcohol of over 400, patient is extremely intoxicated and that is limiting her ability to move and cooperate and follow commands and be tested properly. She is moving all 4 extremities when stimulated tactilely. PSYCH: Unable to assess SKIN: Warm, dry, no rashes. Quite a few superficial bruises, one fairly large bruise of the right upper arm. Stapled laceration of the right forearm already mentioned. Course - Re-evaluation Re-evalutation: 04/22/17 19:44 Patient gradually began to awaken and began screaming and hollering very loudly. I do not plan on giving her additional sedation until her alcohol level has declined to a safer level. 04/22/17 19:46 Patient has been initially assessed briefly by mental health and paperwork have been completed for involuntary commitment. - Vital Signs Vital signs: Temp Pulse Resp BP Pulse Ox 19 109/74 99 04/22/17 18:01 04/22/17 18:00 04/22/17 18:00 - Laboratory Result Diagrams: 04/22/17 17:04 04/22/17 17:04 Laboratory results interpreted by me: 04/22/17 04/22/17 17:04 17:04 RDW 14.2 H Sodium 147.5 H Chloride 113 H Glucose 159 H AST 48 H Salicylates < 1.0 L Acetaminophen < 10 L Serum Alcohol 472 H* Discharge - Discharge Clinical Impression: Suicidal ideation Alcohol overdose Qualifiers: Encounter type: initial encounter Injury intent: intentional self-harm Qualified Code(s): T51.92XA - Toxic effect of unspecified alcohol, intentional self-harm, initial encounter Condition: Serious
--- NOTE | 2017-04-22 19:34 | RADIOLOGY REPORT (SQ) ---
EXAM DESCRIPTION: CT HEAD WITHOUT COMPLETED DATE/TIME: 04/22/2017 7:19 pm REASON FOR STUDY: Altered level of consciousness COMPARISON: None. TECHNIQUE: Axial images acquired through the brain without intravenous contrast. Images reviewed wi th bone, brain and subdural windows. Images stored on PACS. All CT scanners at this facility use dose modulation, iterative reconstruction, and/or weight based d osing when appropriate to reduce radiation dose to as low as reasonably achievable (ALARA). [facility]: Dose Right [facility]: CareDose [facility]: Dose Right [facility]: Teradose 4D [facility]: Miso RADIATION DOSE: 134.10 mGy. LIMITATIONS: None. FINDINGS: VENTRICLES: Normal size and contour. CEREBRUM: No masses. No hemorrhage. No midline shift. Normal webber/white matter differentiation. N o evidence for acute infarction. CEREBELLUM: No masses. No hemorrhage. No alteration of density. No evidence for acute infarction. EXTRAAXIAL SPACES: No fluid collections. No masses. ORBITS AND GLOBE: No intra- or extraconal masses. Normal contour of globe without masses. CALVARIUM: No fracture. PARANASAL SINUSES: No fluid or mucosal thickening. SOFT TISSUES: No mass or hematoma. OTHER: No other significant finding. IMPRESSION: No acute intracranial findings. TECHNICAL DOCUMENTATION: JOB ID: [id number] Quality ID # [id number]: Final reports with documentation of one or more dose reduction techniques (e.g., Au tomated exposure control, adjustment of the mA and/or kV according to patient size, use of iterative reconstruction technique) 2010 [employer]- All Rights Reserved
--- NOTE | 2017-04-22 22:33 | EKG REPORT ---
SEVERITY:- NORMAL ECG - SINUS RHYTHM : Confirmed by: Leanna Harrell 22-Apr-2017 22:32:09
[2017-04-23] MEDS ORDERED: HALOPERIDOL LACTATE INJ 5 MG/1 ML VIAL IM ONE ×2 (01:03→09:14)
[2017-04-23] MEDS ORDERED: DIPHENHYDRAMINE HCL 50 MG/ML VIAL IM ONE ×2 (01:03→09:14)
--- NOTE | 2017-04-23 09:16 | ER Document Report ---
Doctor's Note Notes: 04/23/17 09:14 Patient agitated, screaming out loud, stating she is in pain, point restraints due to patient safety concerns, she reports having chest pain for the past week , as well as left wrist pain from self-inflicted injury, otherwise vital signs are stable, given a dose of IM Haldol and Benadryl this morning which seemed to help her symptoms, patient will be given another dose of this and reevaluated by mental health services
[2017-04-23] MEDS ORDERED: OLANZAPINE INJ/PF 10 MG SDV IM ONE (11:11)
[2017-04-23] MEDS ORDERED: BENZTROPINE MESYLATE INJ 2 MG/2 ML AMPULE IM PRN (11:11)
[2017-04-23] MEDS ORDERED: ACETAMINOPHEN 325 MG TABLET PO ONE (11:12)
[2017-04-23] MEDS ORDERED: IBUPROFEN 600 MG TABLET PO ONE (18:59)
--- NOTE | 2017-04-23 19:05 | PSYCHOLOGICAL NOTE ---
Psych Note - Psych Note Psych Note: Patient brought in by EMS after reportedly taking some pills and drinking a large amount of vodka, perhaps as much as 1/5 of vodka. She was hospital and combative with police. They took her into custody and called EMS who transported the patient here. In route, patient was screaming and uncontrollable and they gave her an injection of Haldol 5 mg, Benadryl 25 mg, and Versed 2 mg, all IM. Upon her arrival in the emergency department, patient is barely movable. However, color is good vital signs are normal. Initial evaluation Patient disclosed that she was drinking last night and called the supervisor hot dip plating to have her ex- arrested. She continued disclosed that she does not remember smacking the motorcycle police. Patient states that she does not really remember much. Alert and orientated to person, place, time and circumstance. Mood is manic with labile affect; noted to be screaming and cussing at [facility] staff, laughing uncontrollably while talking with clinician, and then crying and screaming after evaluation. patient denies suicidal and. Patient denies auditory visual straining any behavior congruent with responding to internal stimuli. No delusions are noted. Thought process is organized and linear. Conversational speech is loud and at times involve yelling and cussing. Eye contact was well- maintained. Intellectual abilities appear to be within average range. Attention and concentration are fair. Insight, judgment, impulse control are poor. Clinician conducted second evaluation after patient was sober Patient disclosed that she is very sorry for her behavior and knows that she was drinking too much. She states that she should not drink anymore. She continued disclosed that she wants to go home. Patient states that she understands all previous visits to [facility] ED involved her being under the influence. Patient is alert and orientated to person place time and circumstance. Mood is euthymic with congruent affect. Patient conversational speech was within normal rate tone and prosody. Patient is no longer demonstrating labile affect. Patient denies suicidal and homicidal ideation. Borderline personality disorder Schizoaffective bipolar type Impression\plan: Patient is recommended for rescind of IVC and is considered psychiatrically clear for discharge. Patient no longer meets IVC criteria per [place] GS 122C. Patient denies suicidal and homicidal ideation. Patient no longer demonstrating behavior congruent with manic and labile affect. Patient is no longer under the influence of alcohol. patient is historically noncompliant with mental health medications. Patient is also a self-reported substance abuser. Patient is recommended for outpatient services through [facility] for mental health and substance abuse. Dr. Adamson was consulted on the care and management of this patient; attending physician is in agreement with recommendations and disposition.
--- NOTE | 2017-04-23 19:10 | ER Document Report ---
ED Psych Disorder / Suicide - General Chief Complaint: Psych Problem Stated Complaint: PSYCH EVAL - HPI Notes: Patient brought in by EMS after reportedly taking some pills and drinking a large amount of vodka, perhaps as much as 1/5 of vodka. She was hospital and combative with police. They took her into custody and called EMS who transported the patient here. In route, patient was screaming and uncontrollable and they gave her an injection of Haldol 5 mg, Benadryl 25 mg, and Versed 2 mg, all IM. Upon her arrival in the emergency department, patient is barely movable. However, color is good vital signs are normal. Initial evaluation Patient disclosed that she was drinking last night and called the ride assembly supervisor to have her ex- arrested. She continued disclosed that she does not remember smacking the police commanding officer. Patient states that she does not really remember much. Alert and orientated to person, place, time and circumstance. Mood is manic with labile affect; noted to be screaming and cussing at [facility] staff, laughing uncontrollably while talking with clinician, and then crying and screaming after evaluation. patient denies suicidal and. Patient denies auditory visual straining any behavior congruent with responding to internal stimuli. No delusions are noted. Thought process is organized and linear. Conversational speech is loud and at times involve yelling and cussing. Eye contact was well- maintained. Intellectual abilities appear to be within average range. Attention and concentration are fair. Insight, judgment, impulse control are poor. Clinician conducted second evaluation after patient was sober Patient disclosed that she is very sorry for her behavior and knows that she was drinking too much. She states that she should not drink anymore. She continued disclosed that she wants to go home. Patient states that she understands all previous visits to [facility] ED involved her being under the influence. Patient is alert and orientated to person place time and circumstance. Mood is euthymic with congruent affect. Patient conversational speech was within normal rate tone and prosody. Patient is no longer demonstrating labile affect. Patient denies suicidal and homicidal ideation. Borderline personality disorder Schizoaffective bipolar type Impression\\plan: Patient is recommended for rescind of IVC and is considered psychiatrically clear for discharge. Patient no longer meets IVC criteria per [place] GS 122C. Patient denies suicidal and homicidal ideation. Patient no longer demonstrating behavior congruent with manic and labile affect. Patient is no longer under the influence of alcohol. patient is historically noncompliant with mental health medications. Patient is also a self-reported substance abuser. Patient is recommended for outpatient services through [facility] for mental health and substance abuse. Dr. Adamson was consulted on the care and management of this patient; attending physician is in agreement with recommendations and disposition. - Related Data Allergies/Adverse Reactions: Penicillins Allergy (Verified 04/14/17 14:15) Past Medical History - Social History Smoking Status: Unknown if Ever Smoked Frequency of alcohol use: Heavy Family History: Reviewed & Not Pertinent - Patient unable to provide family history. - Medical History Medical History: Other - Patient unable to provide history because she is so intoxicated. Psychiatric Medical History: Reports: Hx Bipolar Disorder, Hx Depression, Hx Schizoaffective Disorder, Hx Schizophrenia - Immunizations Hx Diphtheria, Pertussis, Tetanus Vaccination: No Physical Exam - Vital signs Vitals: Resp Pulse Ox 23 H 99 04/22/17 16:51 04/22/17 16:51 Course - Vital Signs Vital signs: Temp Pulse Resp BP Pulse Ox 98.1 F 64 16 131/55 H 99 04/23/17 15:55 04/23/17 15:55 04/23/17 15:55 04/23/17 15:55 04/23/17 15:55 - Laboratory Result Diagrams: 04/22/17 17:04 04/22/17 17:04 Laboratory results interpreted by me: 04/22/17 04/22/17 17:04 17:04 RDW 14.2 H Sodium 147.5 H Chloride 113 H Glucose 159 H AST 48 H Salicylates < 1.0 L Acetaminophen < 10 L Serum Alcohol 472 H* Discharge - Discharge Clinical Impression: Suicidal ideation, Borderline personality disorder Alcohol overdose Qualifiers: Encounter type: initial encounter Injury intent: intentional self-harm Qualified Code(s): T51.92XA - Toxic effect of unspecified alcohol, intentional self-harm, initial encounter Schizoaffective disorder Qualifiers: Schizoaffective disorder type: bipolar Qualified Code(s): F25.0 - Schizoaffective disorder, bipolar type Condition: Stable Disposition: HOME, SELF-CARE Additional Instructions: ACUTE ALCOHOL INTOXICATION and ALCOHOL ABUSE: Your evaluation revealed very high levels of alcohol. You can from drinking a large amount of alcohol rapidly! Further, there's the risk of falls , traffic accidents, and fights. A high portion (about 50 percent) of the serious injuries seen in hospital emergency rooms are caused by alcohol. Alcohol overdosage is usually due to an underlying emotional or psychiatric problem. You may benefit from counselling. If "binge" drinking is an ongoing problem for you, or if you drink ANY AMOUNT of alcohol EVERY day, you most likely have a tendency to alcoholism. You should avoid alcohol totally. We can refer you for treatment. Persons with alcohol problems are often also prone to other addictions -- you should discuss any use of medications or drugs with the doctor. You should be watched at home for the next several hours by someone who has not been drinking. Get extra fluids for the next 24 hours. Call the doctor if there is repeated vomiting, increasing headache, decreasing level of alertness, or any other worsening. CHRONIC ALCOHOLISM and ALCOHOL ABUSE: Your evaluation reveals evidence of chronic alcoholism, an addiction to alcohol. The tendency to alcoholism may be inherited. Chronic use of alcohol weakens muscles, causes fatty deposits in the liver , damages the stomach, makes you more prone to infections, and can cause defects in unborn children. In the long run, brain atrophy and cirrhosis of the liver result. You are also at greater risk for certain types of cancer, such as cancer of the mouth, throat, stomach, and liver. Counselling services are available to help you. In-hospital treatment programs often help. Support groups such as Alcoholics Anonymous can be very useful in beating this addiction. Your physician can make a referral for you. As alcoholics often are prone to other addictions, you should discuss your use of any other medications with the doctor. ALCOHOL WITHDRAWAL: Your symptoms are caused by alcohol withdrawal. After a period of frequent drinking, the brain and body are changed by the alcohol. When you quit or reduce your drinking, the nervous system becomes unstable. Withdrawal symptoms can start a few hours after your last drink, but sometimes don't begin until a couple of days later. Symptoms can include shakiness, sweating, insomnia, nausea , vomiting, fearfulness, hallucinations, and seizures. In addition to the acute effects of alcohol withdrawal, we often have to deal with the medical effects of alcoholism. These problems often include dehydration, stomach irritation, intestinal bleeding, low blood sugar, liver disease, and pancreas inflammation. Treatment for alcohol withdrawal includes mild sedatives, vitamins, and fluids. You need to be with someone who can help if symptoms become severe. Many patients can withdraw at home. Admission to the hospital or a detox facility may be necessary if withdrawal symptoms are severe and uncontrollable. Abstaining from alcohol is the only effective long-term treatment. If you start drinking again, you will not be able to control yourself after the first drink. Treatment programs are available. In addition, many alcoholics benefit from Alcoholics Anonymous or other support groups available through your counselor or [employer]ian[employer]. AL-ANON and ANAYA-TEEN are support groups for friends and family members of an alcoholic. Go to the emergency room if you develop persistent vomiting, severe abdominal pain, fever, shortness of breath, hallucinations, uncontrollable tremors, or seizures. COCAINE ABUSE: Cocaine causes many dangerous medical problems. Problems can occur even with "usual" amounts. Cocaine affects judgement, creating a sense of invulnerability. Cocaine users often make bad decisions that seem "great" at the time. Most cocaine users eventually will be hurt by bad job performance, damaged personal relations, crime, and unsafe sexual practices. Toxic effects of cocaine can include seizures, hallucinations, delusions, high blood pressure, heart damage, or sudden . There's always the risk of a "bad batch." But heart attacks, brain hemorrhages, or cardiac arrest can occur unpredictably even with "normal" use. Injection of cocaine is risky for abscesses, endocarditis (heart infection) , pneumonia, and AIDS. Withdrawal from cocaine often causes anxiety and drug cravings. Some users become paranoid and psychotic. Many treatment programs are available, but you must make the decision to quit. Medication can be prescribed to control the symptoms of cocaine toxicity (beta blockers or benzodiazepines). Withdrawal symptoms may require tranquilizers. NARCOTIC / OPIOD ABUSE: Narcotics and opiods are pain-relieving drugs that are often abused. They are addicting. Narcotics cause euphoria, but it often takes increasing amounts to "feel good" and avoid withdrawal symptoms. Overdose of narcotics causes small pupils, coma, and decreased breathing. It's a common cause of . Purity of street narcotics is unpredictable. Injection of narcotics is risky for abscesses, endocarditis (heart infection), pneumonia, and AIDS. Withdrawal from narcotics causes goose bumps, watery mouth, sweating, nasal congestion, muscle aches, abdominal cramps, vomiting, and diarrhea. There 's often restlessness and confusion. Treatment programs are available, but you must make the decision to quit. Medication (such as clonidine) can be prescribed to control the symptoms of withdrawal. AMPHETAMINE / METHAMPHETAMINE ABUSE: Amphetamines are addicting stimulants. Amphetamines overstimulate the nervous system and give a false feeling of power and mastery. These drugs may be obtained as prescription pills for weight loss, narcolepsy, or attention- deficit disorder. More often they're bought as an illegal street drug, methamphetamine (crank, crystal, speed). Using amphetamines repeatedly can lead to serious medical problems including malnutrition, severe depression, and paranoia. It can take increasing amounts to feel good. Eventually, there will be a "burn out." When you go off amphetamines there is a period of depression that may last for weeks or even months. High doses of amphetamines can cause seizures, confusion, hallucinations, delusions, high blood pressure, muscle damage, heart damage, or sudden . Many times these deadly complications occur even with "normal" doses. Injection of amphetamines is risky for developing abscesses, endocarditis ( heart infection), pneumonia, and AIDS. Withdrawal from amphetamines often causes anxiety, depression, and drug cravings. Some users become paranoid and psychotic. There may be cramps, nausea , and vomiting. Many treatment programs are available, but you must make the decision to quit. Medication can be prescribed to control the symptoms of amphetamine toxicity (beta blockers or benzodiazepines). Withdrawal symptoms may require tranquilizers. FOLLOW-UP CARE: Please follow-up with [facility] on 04/26/2017 at 8 AM. if you experience worsening or a significant change in your symptoms, notify the physician immediately or return to the Emergency Department at any time for re- evaluation. Referrals: [facility] [Outside] - 04/26/17 8:00 am
[2017-04-23 20:03] VITALS: BP 126/81
--- NOTE | 2017-04-23 20:57 | RADIOLOGY REPORT (SQ) ---
EXAM DESCRIPTION: CHEST PA/LAT COMPLETED DATE/TIME: 04/23/2017 7:45 pm REASON FOR STUDY: chest pain COMPARISON: None. EXAM PARAMETERS: NUMBER OF VIEWS: two views TECHNIQUE: Digital Frontal and Lateral radiographic views of the chest acquired. RADIATION DOSE: NA LIMITATIONS: none FINDINGS: LUNGS AND PLEURA: No acute opacities, masses or pneumothorax. No pleural effusion. MEDIASTINUM AND HILAR STRUCTURES: No masses or contour abnormalities. HEART AND VASCULAR STRUCTURES: Heart normal size. No evidence for failure. BONES: No acute findings. HARDWARE: Right clavicular hardware. OTHER: No other significant finding. IMPRESSION: No acute findings. TECHNICAL DOCUMENTATION: JOB ID: [id number] [employer]- All Rights Reserved
== END 2017-04-23 21:00 | disposition home or self-care (01) ==
LOC: ER 16:38
DX: T51.0X2A Toxic effect of ethanol, intentional self-harm, initial encounter (principal); R53.83 Other fatigue; F25.0 Schizoaffective disorder, bipolar type; F60.3 Borderline personality disorder; R07.9 Chest pain, unspecified; W50.0XXA Accidental hit or strike by another person, initial encounter; S51.812D Laceration without foreign body of left forearm, subsequent encounter; Y33.XXXD Other specified events, undetermined intent, subsequent encounter; Z88.0 Allergy status to penicillin; Z78.1 Physical restraint status
CPT/HCPCS: 93005; 99285; 96372; 96360; 96361; 36415; 80307 ×4; 85025; 80053; 81001; 71020; 70450; 93010; J3490 ×2; J0515; J1200; J1630; J7030

== ENCOUNTER 2017-05-20 20:56 | Emergency (ER) | payer MEDICAID ==
--- NOTE | 2017-05-20 21:02 | ER Document Report ---
ED Psych Disorder / Suicide - General Mode of Arrival: Medic Information source: Patient, Emergency Med Personnel - HPI Patient complains to provider of: Overdose Onset: This afternoon - Refer to HPI notes <MILDRED VAIL - Last Filed: 05/20/17 21:35> <BENITA NELSON - Last Filed: 05/21/17 01:59> - General Stated Complaint: POSSIBLE OVERDOSE Time Seen by Provider: 05/20/17 21:01 Notes: Patient is a 27-year-old female presented emergency department for overdose. Patient states she took Haldol and Dextromethorphan DM. Patient states that she has been using cough medications to get high for about 9 years now. Patient states she took a total of 2 boxes each box contains 16, pills and her 30 mg per pill. Therefore the patient took 960 mg of Dextromethorphan DM. Patient does not remember what time she took medication but states it was around lunchtime which was about 9 hours ago. Patient states she came to the emergency department because she was not able to stand up. Patient told EMS that she was trying to get high and not cause harm to herself. Patient denies any vomiting today. Patient states she has used heroin one time in the past. Patient is screaming and yelling at emergency department nurses and physicians. (MILDRED VAIL) The patient does have a wild psychotic look. She is with rapid speech. She is tachycardic with a heart rate in the 130s-135 range. She does take Haldol, citalopram, and overdosed on dextromethorphan. There is concern that this may be serotonin syndrome and will be treated only with IV fluids and benzodiazepines. (BENITA NELSON) - Related Data Allergies/Adverse Reactions: Penicillins Allergy (Verified 04/14/17 14:15) Past Medical History - General Information source: Patient - Social History Smoking Status: Unknown if Ever Smoked Drug Abuse: Heroin, Other - cough medication/ Dextromethorphan DM Family History: None - Patient unable to provide family history. Patient has suicidal ideation: No Patient has homicidal ideation: No Psychiatric Medical History: Reports: Hx Bipolar Disorder, Hx Depression, Hx Schizoaffective Disorder, Hx Schizophrenia Surgical Hx: Negative - Immunizations Hx Diphtheria, Pertussis, Tetanus Vaccination: No <MILDRED VAIL - Last Filed: 05/20/17 21:35> Review of Systems - Review of Systems Constitutional: No symptoms reported EENT: No symptoms reported Cardiovascular: No symptoms reported Respiratory: No symptoms reported Gastrointestinal: No symptoms reported Genitourinary: No symptoms reported Female Genitourinary: No symptoms reported Musculoskeletal: No symptoms reported Skin: No symptoms reported Hematologic/Lymphatic: No symptoms reported Neurological/Psychological: See HPI -: Yes All other systems reviewed and negative <MILDRED VAIL - Last Filed: 05/20/17 21:35> Physical Exam <MILDRED VAIL - Last Filed: 05/20/17 21:35> <BENITA NELSON - Last Filed: 05/21/17 01:59> - Vital signs Vitals: Resp Pulse Ox 19 96 05/20/17 21:55 05/20/17 21:55 - Notes Notes: GENERAL: Alert, anxious, talkative. Mild distress. HEAD: Normocephalic, atraumatic. EYES: Eyes are wide open and very alert. Pupils equal, round, and reactive to light. ENT: Moist mucus membranes, tongue midline. NECK: Full range of motion. Supple. Trachea midline. LUNGS: Clear to auscultation bilaterally, no wheezes, rales, or rhonchi. No respiratory distress. HEART: Tachycardia. Regular rhythm. No murmurs, gallops, or rubs. ABDOMEN: Soft, non-tender. Non-distended. Normal bowel sounds. EXTREMITIES: Moves all 4 extremities spontaneously. Normal strength. No edema. NEUROLOGICAL: Alert and oriented x3. Rapid speech. No focal neurological deficits. GSC 15. PSYCH: Anxious, flight of ideas, difficulty concentrating. SKIN: Warm, dry, normal turgor. (MILDRED VAIL) Course <MILDRED VAIL - Last Filed: 05/20/17 21:35> - Laboratory Result Diagrams: 05/20/17 21:44 05/20/17 21:44 - EKG Interpretation by Dc EKG shows normal: Sinus rhythm, [place], Intervals, QRS Complexes, ST-T Waves Rate: Tachycardia - 132 P Waves: LAE <BENITA NELSON - Last Filed: 05/21/17 01:59> - Re-evaluation Re-evalutation: 05/21/17 01:27 The patient is feeling much better at this time. The effects of the dextromethorphan appear to have worn off. She is no longer tachycardic. A discussion about the overdose was not helpful as she has minimal to no insight. She thinks the problem is she needs to be more careful about taking her Haldol if she is going to take large doses of dextromethorphan to get high. (BENITA NELSON) - Vital Signs Vital signs: Temp Pulse Resp BP Pulse Ox 99.4 F 19 126/83 H 97 05/21/17 00:31 05/20/17 21:55 05/20/17 23:01 05/20/17 23:01 - Laboratory Laboratory results interpreted by me: 05/20/17 05/20/17 21:44 21:44 RDW 14.9 H Glucose 129 H Creatine Kinase 146 H Salicylates < 1.0 L Acetaminophen < 10 L Critical Care Note - Critical Care Note Total time excluding time spent on procedures (mins): 35 <BENITA NELSON - Last Filed: 05/21/17 01:59> Discharge <MILDRED VAIL - Last Filed: 05/20/17 21:35> <BENITA NELSON - Last Filed: 05/21/17 01:59> - Discharge Clinical Impression: Serotonin syndrome Dextromethorphan overdose Qualifiers: Encounter type: initial encounter Injury intent: undetermined intent Qualified Code(s): T48.3X4A - Poisoning by antitussives, undetermined, initial encounter Condition: Stable Disposition: HOME, SELF-CARE Additional Instructions: Overdose You have taken more medication than you should have. After your evaluation and care, it is felt that your overdose is not likely to be harmful or of any significant consequences to you and you are being discharged. In the future, you should be careful not to take more medications than what is prescribed for you. Although your overdose does not seem to be of any danger to you at this time, if you develop any unusual or unexpected symptoms after your discharge, you should return to the Emergency Department immediately for re-evaluation. RETURN TO THE EMERGENCY ROOM IF ANY NEW OR WORSENING SYMPTOMS. Scribe Attestation: 05/21/17 00:06 I personally performed the services described in the documentation, reviewed and edited the documentation which was dictated to the scribe in my presence, and it accurately records my words and actions. (BENITA NELSON) Scribe Documentation - Scribe Written by Scribe:: Alexandra Poole, 05/20/2017 21:33 acting as scribe for :: Yolande <MILDRED VAIL - Last Filed: 05/20/17 21:35>
[2017-05-20] MEDS ORDERED: NORMAL SALINE 1000 ML 1,000 ML IV PRN (21:15)
[2017-05-20] MEDS ORDERED: LORAZEPAM INJ 2 MG/1 ML VIAL IV ONE (21:21)
[2017-05-20 21:58] LABS: ABSOLUTE BASOPHILS # (AUTO) 0.1 10^3/uL (0.0-0.2); ABSOLUTE EOSINOPHILS # (AUTO) 0.2 10^3/uL (0.0-0.6); ABSOLUTE LYMPHOCYTES (AUTO) 1.2 10^3/uL (0.5-4.7); ABSOLUTE MONOCYTES (AUTO) 0.9 10^3/uL (0.1-1.4); ABSOLUTE NEUT (AUTO) 5.7 10^3/uL (1.7-8.2); BASOPHILS % (AUTO) 0.7 % (0-2); EOSINOPHILS % (AUTO) 2.1 % (0-6); HEMATOCRIT 38.4 % (36.0-47.0); HEMOGLOBIN 12.6 g/dL (12.0-15.5); HGB HCT DIFFERENCE -0.6; LYMPHOCYTES % (AUTO) 14.6 % (13-45); MEAN CORPUSCULAR HEMOGLOBIN 30.4 pg (27.0-33.4); MEAN CORPUSCULAR HGB CONC 32.8 g/dL (32.0-36.0); MEAN CORPUSCULAR VOLUME 93 fl (80-97); MONOCYTES % (AUTO) 11.1 % (3-13); RED BLOOD COUNT 4.14 10^6/uL (3.72-5.28); RED CELL DISTRIBUTION WIDTH 14.9 % (11.5-14.0); SEGMENTED NEUTROPHILS % (AUTO) 71.5 % (42-78); WHITE BLOOD COUNT 7.9 10^3/uL (4.0-10.5)
[2017-05-20 22:18] LABS: ALANINE AMINOTRANSFERASE 45 U/L (9-52); ALBUMIN 4.3 g/dL (3.5-5.0); ALKALINE PHOSPHATASE 96 U/L (38-126); ANION GAP 7 (5-19); ASPARTATE AMINO TRANSFERASE 34 U/L (14-36); BILIRUBIN,DIRECT 0.3 mg/dL (0.0-0.4); BILIRUBIN,TOTAL 0.3 mg/dL (0.2-1.3); BLOOD UREA NITROGEN 12 mg/dL (7-20); CALCIUM 9.2 mg/dL (8.4-10.2); CARBON DIOXIDE 24 mmol/L (22-30); CHLORIDE 107 mmol/L (98-107); CREATINE KINASE 146 U/L (30-135); CREATININE RESULT 0.98 mg/dL (0.52-1.25); GLUCOSE 129 mg/dL (75-110); POTASSIUM 4.1 mmol/L (3.6-5.0); SODIUM 138.1 mmol/L (137-145); TOTAL PROTEIN 7.7 g/dL (6.3-8.2)
[2017-05-20 22:24] LABS: ALCOHOL < 10 mg/dL (NONE DETECTED)
[2017-05-20 22:29] LABS: CREATINE KINASE MB 4.53 ng/mL (<4.55); TROPONIN I < 0.012 ng/mL
[2017-05-20 23:08] VITALS: BP 126/83
[2017-05-20 23:16] LABS: AMORPHOUS SEDIMENT,URINE TRACE /HPF; APPEARANCE,URINE CLEAR; BILIRUBIN,URINE NEGATIVE (NEGATIVE); GLUCOSE, URINE NEGATIVE (NEGATIVE); KETONES,URINE NEGATIVE (NEGATIVE); LEUKOCYTE ESTERASE,URINE NEGATIVE (NEGATIVE); NITRITE,URINE NEGATIVE (NEGATIVE); PROTEIN,URINE NEGATIVE (NEGATIVE); URINE SPECIFIC GRAVITY 1.004; UROBILINOGEN,URINE NEGATIVE mg/dL (<2.0)
[2017-05-20 23:37] LABS: URINE BARBITURATES SCREEN NEGATIVE; URINE METHADONE SCREEN NEGATIVE; URINE OPIATES LOW NEGATIVE; URINE PHENCYCLIDINE SCREEN UNCONFIRMED POSITIVE
--- NOTE | 2017-05-21 08:20 | EKG REPORT ---
SEVERITY:- BORDERLINE ECG - SINUS TACHYCARDIA PROBABLE LEFT ATRIAL ABNORMALITY DIFFUSE NONSPECIFIC ST CHANGES. : Confirmed by: Elder Carolina MD 21-May-2017 08:18:37
== END 2017-05-21 02:34 | disposition home or self-care (01) ==
LOC: ER 20:56
DX: T48.3X4A Poisoning by antitussives, undetermined, initial encounter (principal); T43.4X1A Poisoning by butyrophenone and thiothixene neuroleptics, accidental (unintentional), initial encounter; R05 Cough
CPT/HCPCS: 93005; 99285; 96374; 36415; 82553; 80307 ×4; 82550; 84703; 85025; 80053; 81001; 84484; 93010; J2060

== ENCOUNTER 2017-12-03 20:52 | Emergency (ER) | payer MEDICAID ==
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
[2017-12-03 21:52] LABS: ABSOLUTE LYMPHOCYTES (AUTO) 1.6 10^3/uL (0.5-4.7); ABSOLUTE MONOCYTES (AUTO) 0.6 10^3/uL (0.1-1.4); BASOPHILS % (AUTO) 0.6 % (0-2); EOSINOPHILS % (AUTO) 0.3 % (0-6); HEMATOCRIT 36.3 % (36.0-47.0); HEMOGLOBIN 12.1 g/dL (12.0-15.5); LYMPHOCYTES % (AUTO) 21.5 % (13-45); MEAN CORPUSCULAR HEMOGLOBIN 29.8 pg (27.0-33.4); MEAN CORPUSCULAR HGB CONC 33.4 g/dL (32.0-36.0); MEAN CORPUSCULAR VOLUME 89 fl (80-97); MONOCYTES % (AUTO) 8.4 % (3-13); PLATELET COUNT 228 10^3/uL (150-450); RED BLOOD COUNT 4.06 10^6/uL (3.72-5.28); RED CELL DISTRIBUTION WIDTH 15.3 % (11.5-14.0); SEGMENTED NEUTROPHILS % (AUTO) 69.2 % (42-78); TOTAL CELLS COUNTED % (AUTO) 100 %; WHITE BLOOD COUNT 7.2 10^3/uL (4.0-10.5)
[2017-12-03] MEDS ORDERED: HALOPERIDOL LACTATE INJ 5 MG/1 ML VIAL IM ONE (21:56)
[2017-12-03] MEDS ORDERED: MIDAZOLAM 2 MG/2 ML INJ IM ONE (21:56)
[2017-12-03 22:16] LABS: ALANINE AMINOTRANSFERASE 33 U/L (9-52); ALBUMIN 4.7 g/dL (3.5-5.0); ALKALINE PHOSPHATASE 80 U/L (38-126); ASPARTATE AMINO TRANSFERASE 40 U/L (14-36); BILIRUBIN,DIRECT 0.3 mg/dL (0.0-0.4); BILIRUBIN,TOTAL 0.3 mg/dL (0.2-1.3); BLOOD UREA NITROGEN 10 mg/dL (7-20); CALCIUM 9.5 mg/dL (8.4-10.2); GLUCOSE 88 mg/dL (75-110); TOTAL PROTEIN 7.9 g/dL (6.3-8.2)
[2017-12-03 22:25] LABS: APPEARANCE,URINE CLEAR; BILIRUBIN,URINE NEGATIVE (NEGATIVE); COLOR,URINE STRAW; GLUCOSE, URINE NEGATIVE (NEGATIVE); KETONES,URINE NEGATIVE (NEGATIVE); LEUKOCYTE ESTERASE,URINE NEGATIVE (NEGATIVE); NITRITE,URINE NEGATIVE (NEGATIVE); PROTEIN,URINE NEGATIVE (NEGATIVE); URINE SPECIFIC GRAVITY 1.006; UROBILINOGEN,URINE NEGATIVE mg/dL (<2.0)
[2017-12-03 22:30] LABS: CARBON DIOXIDE 31 mmol/L (22-30); CHLORIDE 106 mmol/L (98-107); POTASSIUM 4.3 mmol/L (3.6-5.0); SODIUM 140.4 mmol/L (137-145)
[2017-12-03 22:35] LABS: ALCOHOL < 10 mg/dL (NONE DETECTED)
[2017-12-03 22:36] LABS: ACETAMINOPHEN < 10 ug/mL (10-30); SALICYLATE < 1.0 mg/dL (2.0-20.0)
[2017-12-03 22:37] LABS: ANION GAP 3 (5-19)
[2017-12-03 22:41] LABS: URINE AMPHETAMINES SCREEN NEGATIVE; URINE BARBITURATES SCREEN NEGATIVE; URINE BENZODIAZEPINES SCREEN NEGATIVE; URINE COCAINE SCREEN NEGATIVE; URINE MARIJUANA (THC) SCREEN NEGATIVE; URINE METHADONE SCREEN NEGATIVE; URINE PHENCYCLIDINE SCREEN UNCONFIRMED POSITIVE
[2017-12-04] MEDS ORDERED: MIDAZOLAM 2 MG/2 ML INJ IM ONE (00:18)
[2017-12-04 13:20] VITALS: BP 142/69
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
--- NOTE | 2017-12-04 14:18 | ER Document Report ---
Doctor's Note Notes: 12/04/17 14:17 Rounds: Chart reviewed and patient interviewed. Vital signs were all normal. Lab studies were essentially normal except for being positive urine screen for phencyclidine. Patient appears to be medically stable for transfer or discharge. Jonnathan Aponte MD
--- NOTE | 2017-12-05 12:03 | EKG REPORT ---
SEVERITY:- BORDERLINE ECG - SINUS RHYTHM BORDERLINE PROLONGED QT INTERVAL : Confirmed by: Amelia Paige MD 05-Dec-2017 12:02:24
== END 2017-12-04 15:37 | disposition home or self-care (01) ==
LOC: ER 20:52
DX: F25.0 Schizoaffective disorder, bipolar type (principal); F29 Unspecified psychosis not due to a substance or known physiological condition; R46.89 Other symptoms and signs involving appearance and behavior; F19.20 Other psychoactive substance dependence, uncomplicated
CPT/HCPCS: 93005; 99285; 96372; 96374; 36415; 80307 ×4; 84703; 85025; 80053; 81001; 93010; J2250 ×2; J1630

== ENCOUNTER 2018-03-24 09:08 | Emergency (ER) | payer MEDICARE, MEDICAID ==
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
[2018-03-24 10:11] LABS: ABSOLUTE EOSINOPHILS # (AUTO) 0.2 10^3/uL (0.0-0.6); ABSOLUTE MONOCYTES (AUTO) 0.9 10^3/uL (0.1-1.4); ABSOLUTE NEUT (AUTO) 4.8 10^3/uL (1.7-8.2); BASOPHILS % (AUTO) 0.5 % (0-2); EOSINOPHILS % (AUTO) 2.3 % (0-6); HEMATOCRIT 41.3 % (36.0-47.0); HEMOGLOBIN 13.6 g/dL (12.0-15.5); LYMPHOCYTES % (AUTO) 25.3 % (13-45); MEAN CORPUSCULAR HEMOGLOBIN 29.5 pg (27.0-33.4); MEAN CORPUSCULAR HGB CONC 32.9 g/dL (32.0-36.0); MEAN CORPUSCULAR VOLUME 90 fl (80-97); MONOCYTES % (AUTO) 11.6 % (3-13); PLATELET COUNT 301 10^3/uL (150-450); RED BLOOD COUNT 4.61 10^6/uL (3.72-5.28); RED CELL DISTRIBUTION WIDTH 14.7 % (11.5-14.0); SEGMENTED NEUTROPHILS % (AUTO) 60.3 % (42-78); TOTAL CELLS COUNTED % (AUTO) 100 %; WHITE BLOOD COUNT 7.9 10^3/uL (4.0-10.5)
--- NOTE | 2018-03-24 10:11 | EKG REPORT ---
SEVERITY:- ABNORMAL ECG - SINUS RHYTHM PROLONGED QT INTERVAL : Confirmed by: Leanna Harrell 24-Mar-2018 10:10:34
[2018-03-24 10:16] LABS: AMORPHOUS SEDIMENT,URINE TRACE /HPF; APPEARANCE,URINE CLOUDY; BILIRUBIN,URINE NEGATIVE (NEGATIVE); COLOR,URINE YELLOW; GLUCOSE, URINE NEGATIVE (NEGATIVE); KETONES,URINE NEGATIVE (NEGATIVE); LEUKOCYTE ESTERASE,URINE NEGATIVE (NEGATIVE); NITRITE,URINE NEGATIVE (NEGATIVE); PROTEIN,URINE NEGATIVE (NEGATIVE); URINE SPECIFIC GRAVITY 1.015; UROBILINOGEN,URINE NEGATIVE mg/dL (<2.0)
[2018-03-24 10:17] LABS: ACETAMINOPHEN < 10 ug/mL (10-30); ALANINE AMINOTRANSFERASE 55 U/L (9-52); ALBUMIN 4.3 g/dL (3.5-5.0); ALCOHOL < 10 mg/dL (NONE DETECTED); ALKALINE PHOSPHATASE 87 U/L (38-126); ANION GAP 9 (5-19); ASPARTATE AMINO TRANSFERASE 39 U/L (14-36); BILIRUBIN,DIRECT 0.1 mg/dL (0.0-0.4); BILIRUBIN,TOTAL 0.1 mg/dL (0.2-1.3); BLOOD UREA NITROGEN 13 mg/dL (7-20); CALCIUM 10.6 mg/dL (8.4-10.2); CARBON DIOXIDE 30 mmol/L (22-30); CHLORIDE 107 mmol/L (98-107); GLUCOSE 153 mg/dL (75-110); POTASSIUM 3.6 mmol/L (3.6-5.0); SALICYLATE < 1.0 mg/dL (2.0-20.0); SODIUM 145.7 mmol/L (137-145); TOTAL PROTEIN 7.7 g/dL (6.3-8.2)
[2018-03-24] MEDS: NORMAL SALINE 1000 ML 1,000 ML IV PRN ×2 (10:20→11:45)
[2018-03-24 10:32] LABS: URINE AMPHETAMINES SCREEN NEGATIVE; URINE BARBITURATES SCREEN NEGATIVE; URINE BENZODIAZEPINES SCREEN NEGATIVE; URINE COCAINE SCREEN NEGATIVE; URINE MARIJUANA (THC) SCREEN NEGATIVE; URINE METHADONE SCREEN NEGATIVE; URINE PHENCYCLIDINE SCREEN UNCONFIRMED POSITIVE
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
--- NOTE | 2018-03-24 23:12 | EKG REPORT ---
SEVERITY:- BORDERLINE ECG - SINUS RHYTHM BORDERLINE PROLONGED QT INTERVAL : Confirmed by: Leanna Harrell 24-Mar-2018 20:12:00
[2018-03-25 11:40] VITALS: BP 132/78
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
== END 2018-03-25 11:43 | disposition home or self-care (01) ==
LOC: ER 09:08
DX: T43.4X2A Poisoning by butyrophenone and thiothixene neuroleptics, intentional self-harm, initial encounter (principal); R11.0 Nausea; T23.252A Burn of second degree of left palm, initial encounter; X77.8XXA Intentional self-harm by other hot objects, initial encounter; T23.251A Burn of second degree of right palm, initial encounter; T25.022A Burn of unspecified degree of left foot, initial encounter; T25.021A Burn of unspecified degree of right foot, initial encounter; X76.XXXA Intentional self-harm by smoke, fire and flames, initial encounter; Y92.009 Unspecified place in unspecified non-institutional (private) residence as the place of occurrence of the external cause; F31.9 Bipolar disorder, unspecified; F60.3 Borderline personality disorder; F25.0 Schizoaffective disorder, bipolar type; Z79.899 Other long term (current) drug therapy; S40.022A Contusion of left upper arm, initial encounter; W19.XXXA Unspecified fall, initial encounter; F17.200 Nicotine dependence, unspecified, uncomplicated; Z88.0 Allergy status to penicillin; R79.89 Other specified abnormal findings of blood chemistry
CPT/HCPCS: 93005; 99285; 96360; 96361; 36415; 80307 ×4; 83735; 85025; 80053; 81001; 93010; J7030

== ENCOUNTER 2018-05-26 06:45 | Emergency (ER) | payer MEDICARE, MEDICAID ==
--- NOTE | 2018-05-26 07:25 | ER Document Report ---
ED Psych Disorder / Suicide - General Mode of Arrival: Ambulatory Information source: Patient TRAVEL OUTSIDE OF THE [place] IN LAST 30 DAYS: No <ISTAU BAILEY - Last Filed: 05/26/18 08:59> <ROBBY MIX - Last Filed: 05/26/18 14:00> <BENITA NELSON - Last Filed: 05/26/18 14:26> - General Chief Complaint: Psych Problem Stated Complaint: PSYCH PROBLEM Time Seen by Provider: 05/26/18 07:00 Notes: 28-year-old female with schizophrenia, bipolar disorder, and depression who presents to the emergency department today with complaints of right-sided chest pain that she states makes her "worried there is a tumor". Patient also mentions that she has to "hold her breath and really push to urinate". Patient then goes on to state that she is "a hypochondriac" so "there might be nothing wrong". (ISATU BAILEY) - Related Data Allergies/Adverse Reactions: Penicillins Allergy (Verified 03/24/18 09:49) Past Medical History - General Information source: Patient - Social History Smoking Status: Current Every Day Smoker Cigarette use (# per day): Yes Chew tobacco use (# tins/day): No Frequency of alcohol use: Occasional Drug Abuse: Other Lives with: Family Family History: Reviewed & Not Pertinent Patient has suicidal ideation: No Patient has homicidal ideation: No GI Medical History: Reports: Hx Hepatitis - Hepatitis C, on no treatment. Musculoskeletal Medical History: Reports Hx Musculoskeletal Trauma - Left foot fracture Psychiatric Medical History: Reports: Hx Bipolar Disorder, Hx Depression, Hx Schizoaffective Disorder, Hx Schizophrenia Infectious Medical History: Reports: Hx Hepatitis - Hepatitis C, on no treatment. Surgical Hx: Negative - Immunizations Hx Diphtheria, Pertussis, Tetanus Vaccination: No <ISATU BAILEY - Last Filed: 05/26/18 08:59> Review of Systems - Review of Systems Constitutional: No symptoms reported EENT: No symptoms reported Cardiovascular: No symptoms reported Respiratory: No symptoms reported Gastrointestinal: No symptoms reported Genitourinary: No symptoms reported Female Genitourinary: No symptoms reported Musculoskeletal: See HPI, Other - chest wall pain Skin: No symptoms reported Hematologic/Lymphatic: No symptoms reported Neurological/Psychological: No symptoms reported -: Yes All other systems reviewed and negative <ISATU BAILEY - Last Filed: 05/26/18 08:59> Physical Exam <ISATU BAILEY - Last Filed: 05/26/18 08:59> <ROBBY MIX - Last Filed: 05/26/18 14:00> <BENITA NELSON - Last Filed: 05/26/18 14:26> - Vital signs Vitals: Temp Pulse Resp BP Pulse Ox 98.3 F 100 18 146/83 H 97 05/26/18 06:45 05/26/18 06:45 05/26/18 06:45 05/26/18 06:45 05/26/18 06:45 - Notes Notes: Physical Exam: General: Alert, appears well. HEENT: Normocephalic. Atraumatic. PERRL. Extraocular movements intact. Oropharynx clear. Neck: Supple. Non-tender. Respiratory: No respiratory distress. Clear and equal breath sounds bilaterally. Cardiovascular: Regular rate and rhythm. Abdominal: Normal Inspection. Non-tender. No distension. Normal Bowel Sounds. Back: Non-tender. No deformity or step off. Extremities: Moves all four extremities. Upper extremities: Normal inspection. Normal ROM. Lower extremities: Normal inspection. No edema. Normal ROM. Neurological: Normal cognition. AAOx4. Normal speech. Psychological: Odd affect. Normal mood. Skin: Warm. Dry. Normal color. (LEOISATU) Course - Laboratory Result Diagrams: 05/26/18 07:45 05/26/18 07:45 <ISATU BAILEY - Last Filed: 05/26/18 08:59> - Laboratory Result Diagrams: 05/26/18 07:45 05/26/18 07:45 <ROBBY MIX - Last Filed: 05/26/18 14:00> - Laboratory Result Diagrams: 05/26/18 07:45 05/26/18 07:45 - EKG Interpretation by [place] EKG shows normal: Sinus rhythm, [place], Intervals, QRS Complexes, ST-T Waves Rate: Normal - 92 Rhythm: NSR <BENITA NELSON - Last Filed: 05/26/18 14:26> - Vital Signs Vital signs: Temp Pulse Resp BP Pulse Ox 98.2 F 92 18 143/74 H 100 05/26/18 09:22 05/26/18 09:22 05/26/18 06:45 05/26/18 09:22 05/26/18 09:22 - Laboratory Laboratory results interpreted by me: 05/26/18 07:45 Carbon Dioxide 33 H Anion Gap 4 L AST 54 H ALT 63 H Salicylates < 1.0 L Acetaminophen < 10 L Discharge <ISATU BAILEY - Last Filed: 05/26/18 08:59> <ROBBY MIX - Last Filed: 05/26/18 14:00> <BENITA NELSON - Last Filed: 05/26/18 14:26> - Discharge Condition: Stable Disposition: HOME, SELF-CARE Additional Instructions: You have been seen in the Emergency Department and evaluated by medical and the behavioral health teams for suicidal ideation and substance abuse and now determined to be appropriate for discharge. The use of cocaine increases the risk of suicidal thoughts and your are highly encouraged to stop using cocaine. Please follow up with [facility] for continued assistance for detox assistance. COCAINE ABUSE: Cocaine causes many dangerous medical problems. Problems can occur even with "usual" amounts. Cocaine affects judgement, creating a sense of invulnerability. Cocaine users often make bad decisions that seem "great" at the time. Most cocaine users eventually will be hurt by bad job performance, damaged personal relations, crime, and unsafe sexual practices. Toxic effects of cocaine can include seizures, hallucinations, delusions, high blood pressure, heart damage, or sudden . There's always the risk of a "bad batch." But heart attacks, brain hemorrhages, or cardiac arrest can occur unpredictably even with "normal" use. Injection of cocaine is risky for abscesses, endocarditis (heart infection) , pneumonia, and AIDS. Withdrawal from cocaine often causes anxiety and drug cravings. Some users become paranoid and psychotic. Many treatment programs are available, but you must make the decision to quit. Medication can be prescribed to control the symptoms of cocaine toxicity (beta blockers or benzodiazepines). Withdrawal symptoms may require tranquilizers. FOLLOW-UP CARE: Please follow up with [facility] for continued assistance for detox assistance. If you experience worsening or a significant change in your symptoms, notify the physician immediately or return to the Emergency Department at any time for re- evaluation. Prescriptions: Benztropine Mesylate [Cogentin 1 mg Tablet] 1 tab PO DAILY #7 tab Haloperidol [Haldol 5 mg Tablet] 5 mg PO BID #14 tablet Referrals: HERMAN HAYNES DO [Primary Care Provider] - Follow up as needed [facility] [Outside] - Follow up as needed Scribe Attestation: 05/26/18 09:04 I personally performed the services described in the documentation, reviewed and edited the documentation which was dictated to the scribe in my presence, and it accurately records my words and actions. (BENITA NELSON) Scribe Documentation - Scribe Written by Alexandra:: Alexandra Tinsley, 05/26/2018 0903 acting as scribe for :: Yolande <ISATU BAILEY - Last Filed: 05/26/18 08:59>
[2018-05-26 07:44] LABS: APPEARANCE,URINE CLEAR; BILIRUBIN,URINE NEGATIVE (NEGATIVE); COLOR,URINE STRAW; GLUCOSE, URINE NEGATIVE (NEGATIVE); KETONES,URINE NEGATIVE (NEGATIVE); LEUKOCYTE ESTERASE,URINE NEGATIVE (NEGATIVE); NITRITE,URINE NEGATIVE (NEGATIVE); PROTEIN,URINE NEGATIVE (NEGATIVE); URINE SPECIFIC GRAVITY 1.009; UROBILINOGEN,URINE NEGATIVE mg/dL (<2.0)
[2018-05-26 08:03] LABS: URINE AMPHETAMINES SCREEN NEGATIVE; URINE BARBITURATES SCREEN NEGATIVE; URINE BENZODIAZEPINES SCREEN NEGATIVE; URINE COCAINE SCREEN NEGATIVE; URINE MARIJUANA (THC) SCREEN NEGATIVE; URINE METHADONE SCREEN NEGATIVE; URINE PHENCYCLIDINE SCREEN UNCONFIRMED POSITIVE
[2018-05-26 08:13] LABS: ABSOLUTE BASOPHILS # (AUTO) 0.1 10^3/uL (0.0-0.2); ABSOLUTE EOSINOPHILS # (AUTO) 0.1 10^3/uL (0.0-0.6); ABSOLUTE LYMPHOCYTES (AUTO) 2.4 10^3/uL (0.5-4.7); ABSOLUTE NEUT (AUTO) 5.3 10^3/uL (1.7-8.2); BASOPHILS % (AUTO) 0.9 % (0-2); EOSINOPHILS % (AUTO) 1.6 % (0-6); HEMATOCRIT 38.4 % (36.0-47.0); HEMOGLOBIN 12.8 g/dL (12.0-15.5); MEAN CORPUSCULAR HEMOGLOBIN 30.5 pg (27.0-33.4); MEAN CORPUSCULAR HGB CONC 33.4 g/dL (32.0-36.0); MEAN CORPUSCULAR VOLUME 91 fl (80-97); MONOCYTES % (AUTO) 10.9 % (3-13); PLATELET COUNT 315 10^3/uL (150-450); RED BLOOD COUNT 4.21 10^6/uL (3.72-5.28); RED CELL DISTRIBUTION WIDTH 13.8 % (11.5-14.0); SEGMENTED NEUTROPHILS % (AUTO) 59.6 % (42-78); TOTAL CELLS COUNTED % (AUTO) 100 %; WHITE BLOOD COUNT 8.9 10^3/uL (4.0-10.5)
[2018-05-26 08:42] LABS: ALANINE AMINOTRANSFERASE 63 U/L (9-52); ALBUMIN 4.3 g/dL (3.5-5.0); ALKALINE PHOSPHATASE 111 U/L (38-126); ASPARTATE AMINO TRANSFERASE 54 U/L (14-36); BILIRUBIN,DIRECT 0.3 mg/dL (0.0-0.4); BILIRUBIN,TOTAL 0.4 mg/dL (0.2-1.3); BLOOD UREA NITROGEN 20 mg/dL (7-20); CALCIUM 9.8 mg/dL (8.4-10.2); GLUCOSE 108 mg/dL (75-110); POTASSIUM 4.4 mmol/L (3.6-5.0); TOTAL PROTEIN 8.1 g/dL (6.3-8.2)
[2018-05-26 08:47] LABS: CARBON DIOXIDE 33 mmol/L (22-30); CHLORIDE 105 mmol/L (98-107); SODIUM 141.5 mmol/L (137-145)
[2018-05-26 08:48] LABS: ACETAMINOPHEN < 10 ug/mL (10-30); ALCOHOL < 10 mg/dL (NONE DETECTED); SALICYLATE < 1.0 mg/dL (2.0-20.0)
[2018-05-26 08:49] LABS: ANION GAP 4 (5-19)
[2018-05-26] MEDS ORDERED: BENZTROPINE MESYLATE 1 MG TABLET PO ONE (11:30)
[2018-05-26] MEDS ORDERED: HALOPERIDOL DECANOATE INJ 100 MG/1 ML VIAL IM ONE (11:30)
[2018-05-26 14:48] VITALS: BP 127/75
--- NOTE | 2018-05-26 23:14 | EKG REPORT ---
SEVERITY:- NORMAL ECG - SINUS RHYTHM : Confirmed by: Leanna Harrell 26-May-2018 23:13:56
--- NOTE | 2018-05-27 13:46 | PSYCHOLOGICAL NOTE ---
Psych Note - Psych Note Psych Note: Reason for Consult: manic Pt aaox3 bib medic for complaint of left breast pain (needing a mammogram), spider bites on her left shoulder and back, needing her liver enzymes checked and needing rehab for cough medicine abuse." Pt has scattered thoughts. Denies SI denies HI, belongings removed and inventoried Patient discloses that she wants assistance with detox; "they are working on it but I just cannot wait." Patient continues to report that she is "toxic" and is worried that she has cancer. She discloses that she has been using cough syrup for so long that it may have started to physically affect her brain and is requesting a referral for neurology. Patient states "I am brilliant but I am crazy" and confirms that she has not been sleeping. Patient has been observed throughout the day and is noted to be resting calmly in her room and not demonstrating any physical manic behavior. Clinician notes patient did have a behavioral outburst when she was moved to a different room. Patient is alert and orientated to person, place, time and circumstance. Mood is liable with congruent affect. Patient denies suicidal and homicidal ideation. Delusions are absent behaviors congruent with intact reality based presentation i.e. organized and linear thought process. Eye contact is well- maintained. Conversational speech is liable but congruent with patient's current mood. Intellectual abilities appear to be within average range. Attention and concentration are fair. Insight, judgment, impulse control are poor to her to long-term substance abuse and cluster B personality traits. Medication recommendations per [facility] contracted psychiatrist Dr. Adela NIELSON are as follows 1. Haldol 5 mg twice daily 2. Cogentin 1 mg daily 3. 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 Patient has a long history of substance abuse and noncompliance on her psychiatric medications. Today patient received a Haldol Decanoate shot 100mg IM that will assist with patient's psychiatric symptoms for 3-4 weeks. Patient has chronic passive suicidal ideation, ie no plans means or intent. Clinician notes today patient denies suicidal ideation. Patient is recommended for higher level of community services (ie ACTT or [facility]) and a referral was submitted to her outpatient provider 03/25/2018. This patient is well-known to clinician; patient's baseline for conversational speech is slightly pressured and patient tends to be very labile with her emotions. Clinician notes patient did have a behavioral outburst when she was moved to a different room which is also congruent with the patient's baseline cluster B personality trait behaviors and longe term substance abuse (ie has a behavioral outburst then cries and repeats she is sorry to clinician). Dr. Adamson was consulted and the care management this patient; attending physician is in agreement with recommendations and disposition.
== END 2018-05-26 14:53 | disposition home or self-care (01) ==
LOC: ER 06:45
DX: F31.9 Bipolar disorder, unspecified (principal); F19.90 Other psychoactive substance use, unspecified, uncomplicated; R07.89 Other chest pain; F17.210 Nicotine dependence, cigarettes, uncomplicated; Z88.0 Allergy status to penicillin
CPT/HCPCS: 93005; 99285; 96372; 36415; 80307 ×4; 84703; 85025; 80053; 81001; 93010; A9270; J1631

== ENCOUNTER 2018-11-11 11:57 | Emergency (ER) | payer MEDICARE, MEDICAID ==
--- NOTE | 2018-11-11 13:29 | RADIOLOGY REPORT (SQ) ---
EXAM DESCRIPTION: CT HEAD WITHOUT COMPLETED DATE/TIME: 11/11/2018 1:17 pm REASON FOR STUDY: right great toe pain fall loc? COMPARISON: None. TECHNIQUE: Axial images acquired through the brain without intravenous contrast. Images reviewed wi th bone, brain and subdural windows. Additional sagittal and coronal reconstructions were generated. Images stored on PACS. All CT scanners at this facility use dose modulation, iterative reconstruction, and/or weight based d osing when appropriate to reduce radiation dose to as low as reasonably achievable (ALARA). [facility]: Dose Right [facility]: CareDose [facility]: Dose Right [facility]: Teradose 4D [facility]: Smart WeStudy.In RADIATION DOSE: CT Rad equipment meets quality standard of care and radiation dose reduction techniq ues were employed. CTDIvol: 53.2 mGy. DLP: 1070 mGy-cm. mGy. LIMITATIONS: None. FINDINGS: VENTRICLES: Normal size and contour. CEREBRUM: No masses. No hemorrhage. No midline shift. No evidence for acute infarction. Normal gra y/white matter differentiation. No areas of low density in the white matter. CEREBELLUM: No masses. No hemorrhage. No alteration of density. No evidence for acute infarction. EXTRAAXIAL SPACES: No fluid collections. No masses. ORBITS AND GLOBE: No intra- or extraconal masses. Normal contour of globe without masses. CALVARIUM: No fracture. PARANASAL SINUSES: No fluid or mucosal thickening. SOFT TISSUES: No mass or hematoma. OTHER: No other significant finding. IMPRESSION: NO ACUTE INTRACRANIAL IMAGING FINDINGS. EVIDENCE OF ACUTE STROKE: NO. COMMENT: Quality ID # [id number]: Final reports with documentation of one or more dose reduction techniques (e.g., Automated exposure control, adjustment of the mA and/or kV according to patient size, use of iterative reconstruction technique) TECHNICAL DOCUMENTATION: JOB ID: [id number] [employer]- All Rights Reserved Reading location - IP/workstation name: [email or web address]
--- NOTE | 2018-11-11 13:41 | RADIOLOGY REPORT (SQ) ---
EXAM DESCRIPTION: CT CERVICAL SPINE WITHOUT COMPLETED DATE/TIME: 11/11/2018 1:17 pm REASON FOR STUDY: right great toe pain fall loc? COMPARISON: 04/22/2017 TECHNIQUE: Axial images acquired through the cervical spine without intravenous contrast. Images re viewed with lung, soft tissue and bone windows. Reconstructed coronal and sagittal MPR images review ed. Images stored on PACS. All CT scanners at this facility use dose modulation, iterative reconstruction, and/or weight based d osing when appropriate to reduce radiation dose to as low as reasonably achievable (ALARA). [facility]: Dose Right [facility]: CareDose [facility]: Dose Right [facility]: Teradose 4D [facility]: Smart [employer] RADIATION DOSE: CT Rad equipment meets quality standard of care and radiation dose reduction techniq ues were employed. CTDIvol: 16.7 mGy. DLP: 291 mGy-cm. mGy. LIMITATIONS: None. FINDINGS: ALIGNMENT: There is asymmetric widening at the anterior disc space of C2-3 with trace ante rolisthesis of C2-C2 on C3. MINERALIZATION: Normal. VERTEBRAL BODIES: There is a displaced fracture of the posterior elements of C2. The fracture line e xtends to the pedicle on the left and into the articular facet on the right. There is asymmetric pos terior displacement of C1 on C2 on the left measuring up to 7 mm. There is no significant osseous sp inal canal stenosis or neural foraminal narrowing. DISCS: Asymmetric widening at the anterior aspect of the disc at C2-3 suggestive of ligamentous injur y. No significant degenerative disease. FACETS, LATERAL MASSES, POSTERIOR ELEMENTS: Displaced acute fracture of C2 involving the pedicle on t he left and articular facet on the right. No evidence of facet dislocation. HARDWARE: None in the spine. VISUALIZED RIBS: No fractures. LUNG APICES AND SOFT TISSUES: No significant or acute findings. OTHER: No other significant finding. IMPRESSION: Unstable displaced fracture of the posterior elements of C2. The fracture line extends through the pedicle on the left and into the articular facet on the right. No significant osseous sp inal canal stenosis or neural foraminal narrowing. Asymmetric widening at the C2-3 disc space anteriorly suggestive of ligamentous injury with trace gra de 1 anterolisthesis of C2 on C3. COMMENT: Pertinent findings on the imaging study reported as a CRITICAL RESULT to WILLI Helm at13:29 on 11/11/2018. Category of Critical Result: Acute cervical spine fracture (C2). TECHNICAL DOCUMENTATION: JOB ID: [id number] Quality ID # [id number]: Final reports with documentation of one or more dose reduction techniques (e.g., Au tomated exposure control, adjustment of the mA and/or kV according to patient size, use of iterative reconstruction technique) 2010 [employer]- All Rights Reserved Reading location - IP/workstation name: [email or web address]
[2018-11-11 13:42] LABS: APPEARANCE,URINE CLOUDY; BILIRUBIN,URINE NEGATIVE (NEGATIVE); COLOR,URINE YELLOW; GLUCOSE, URINE 150 mg/dL (NEGATIVE); KETONES,URINE NEGATIVE (NEGATIVE); LEUKOCYTE ESTERASE,URINE NEGATIVE (NEGATIVE); NITRITE,URINE NEGATIVE (NEGATIVE); PROTEIN,URINE 30 mg/dL (NEGATIVE); URINE SPECIFIC GRAVITY 1.017; UROBILINOGEN,URINE NEGATIVE mg/dL (<2.0)
[2018-11-11 13:54] LABS: URINE AMPHETAMINES SCREEN NEGATIVE; URINE BARBITURATES SCREEN NEGATIVE; URINE BENZODIAZEPINES SCREEN NEGATIVE; URINE COCAINE SCREEN NEGATIVE; URINE MARIJUANA (THC) SCREEN NEGATIVE; URINE METHADONE SCREEN NEGATIVE; URINE PHENCYCLIDINE SCREEN UNCONFIRMED POSITIVE
[2018-11-11] MEDS ORDERED: MORPHINE SULFATE 10 MG/ML INJ IV ONE ×2 (13:57→15:04)
[2018-11-11] MEDS ORDERED: ONDANSETRON HCL INJ/PF 4 MG/2 ML SDV IV ONE (13:57)
[2018-11-11] MEDS ORDERED: DIPHENHYDRAMINE HCL 50 MG/ML VIAL IV ONE (13:57)
[2018-11-11 14:02] LABS: ABSOLUTE LYMPHOCYTES (AUTO) 1.3 10^3/uL (0.5-4.7); ABSOLUTE MONOCYTES (AUTO) 1.1 10^3/uL (0.1-1.4); ABSOLUTE NEUT (AUTO) 8.4 10^3/uL (1.7-8.2); BASOPHILS % (AUTO) 0.2 % (0-2); HEMATOCRIT 36.2 % (36.0-47.0); HEMOGLOBIN 12.3 g/dL (12.0-15.5); LYMPHOCYTES % (AUTO) 12.3 % (13-45); MEAN CORPUSCULAR HEMOGLOBIN 30.1 pg (27.0-33.4); MEAN CORPUSCULAR HGB CONC 33.9 g/dL (32.0-36.0); MEAN CORPUSCULAR VOLUME 89 fl (80-97); MONOCYTES % (AUTO) 10.3 % (3-13); PLATELET COUNT 212 10^3/uL (150-450); RED BLOOD COUNT 4.07 10^6/uL (3.72-5.28); RED CELL DISTRIBUTION WIDTH 13.9 % (11.5-14.0); SEGMENTED NEUTROPHILS % (AUTO) 77.2 % (42-78); TOTAL CELLS COUNTED % (AUTO) 100 %; WHITE BLOOD COUNT 10.8 10^3/uL (4.0-10.5)
[2018-11-11] MEDS ORDERED: OLANZAPINE 5 MG TAB.RAPDIS PO ONE (14:09)
[2018-11-11 14:35] LABS: ALANINE AMINOTRANSFERASE 88 U/L (9-52); ALBUMIN 4.2 g/dL (3.5-5.0); ALKALINE PHOSPHATASE 94 U/L (38-126); ASPARTATE AMINO TRANSFERASE 286 U/L (14-36); BILIRUBIN,DIRECT 0.2 mg/dL (0.0-0.4); BILIRUBIN,TOTAL 0.2 mg/dL (0.2-1.3); BLOOD UREA NITROGEN 11 mg/dL (7-20); CALCIUM 8.3 mg/dL (8.4-10.2); GLUCOSE 100 mg/dL (75-110); TOTAL PROTEIN 7.4 g/dL (6.3-8.2)
[2018-11-11 14:47] VITALS: BP 149/87
[2018-11-11 14:54] LABS: CARBON DIOXIDE 29 mmol/L (22-30); CHLORIDE 111 mmol/L (98-107); POTASSIUM 3.5 mmol/L (3.6-5.0); SODIUM 136.5 mmol/L (137-145)
[2018-11-11 14:57] LABS: ACETAMINOPHEN < 10 ug/mL (10-30); ALCOHOL < 10 mg/dL (NONE DETECTED); ANION GAP -4 (5-19); SALICYLATE < 1.0 mg/dL (2.0-20.0)
[2018-11-11] MEDS ORDERED: LORAZEPAM INJ 2 MG/1 ML VIAL IV ONE (15:04)
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
--- NOTE | 2018-11-11 23:02 | EKG REPORT ---
SEVERITY:- BORDERLINE ECG - SINUS TACHYCARDIA BORDERLINE T WAVE ABNORMALITIES : Confirmed by: Amelia Paige MD 11-Nov-2018 23:02:25
== END 2018-11-11 15:25 | disposition short-term general hospital (02) ==
LOC: ER 11:57
DX: S12.100A Unspecified displaced fracture of second cervical vertebra, initial encounter for closed fracture (principal); S30.1XXA Contusion of abdominal wall, initial encounter; S40.029A Contusion of unspecified upper arm, initial encounter; S80.10XA Contusion of unspecified lower leg, initial encounter; S50.311A Abrasion of right elbow, initial encounter; W18.2XXA Fall in (into) shower or empty bathtub, initial encounter; F17.200 Nicotine dependence, unspecified, uncomplicated; R55 Syncope and collapse; F25.9 Schizoaffective disorder, unspecified
CPT/HCPCS: 93005; 96376; 99291; 96374; 96375; 36415; 80307 ×4; 85025; 81025; 80053; 81001; 70450; 72125; 93010; A9270; J1200; J2270; J2060; J2405; J3490

== ENCOUNTER 2018-11-28 23:30 | Emergency (ER) | payer MEDICARE, MEDICAID ==
[2018-11-28 23:53] VITALS: BP 170/98
== END 2018-11-29 00:29 | disposition left against medical advice (07) ==
LOC: ER 23:30
DX: Z53.21 Procedure and treatment not carried out due to patient leaving prior to being seen by health care provider (principal)

== ENCOUNTER 2019-02-21 19:40 | Emergency (ER) | payer MEDICARE, MEDICAID ==
--- NOTE | 2019-02-21 20:04 | ER Document Report ---
ED General <ROBBY MIX - Last Filed: 02/22/19 08:09> <LESLIEBENITA Castillo - Last Filed: 02/22/19 18:26> - General TRAVEL OUTSIDE OF THE [place] IN LAST 30 DAYS: No <STEVEN LYMAN - Last Filed: 02/22/19 22:33> - General Stated Complaint: POSSIBLE OVERDOSE Time Seen by Provider: 02/21/19 19:47 Primary Care Provider: [facility] [Outside] - Follow up as needed HERMAN HAYNES DO [Primary Care Provider] - Follow up as needed Notes: Patient is a 28-year-old female with history of substance abuse that presents to the emergency department for chief complaint of intoxication and patient took 3 boxes of chlorpheniramine (16,4 mg tablets), and 16 tablets of dextromethorphan 30 mg. Patient states that she was walking on the street and ran into to BOKU, and asked him about recent events of the [facility], and they are uncomfortable because she was slurring her words, and therefore called EMS. She states that she did not think she had to be brought here, she uses what she describes as triple C's, multiple times during the week, then she states she crashes. 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 She does have a history of bipolar disorder and is on lithium. She denies any suicidal intent, denies any homicidal thoughts at this time. She states that this is the usual dose of this medication that she takes on a more regular basis to "on "get high" she denies having any headache, lightheadedness, dizziness chest pain, shortness of breath, nausea or vomiting. Past Medical History: Bipolar disorder, Past Surgical History: Denies surgical history Social History: Admits to smoking cigarettes, denies alcohol use, admits to abusing Coricidin, and dextromethorphan Family History: Reviewed and noncontributory for presenting illness Allergies: Reviewed, see documented allergy list. REVIEW OF SYSTEMS: Other than noted above, the 12 point review of systems was reviewed with the patient and were negative, all pertinent findings are included in the HPI. PHYSICAL EXAMINATION: Vital signs reviewed, nursing noted reviewed. GENERAL: Well-appearing, well-nourished and in no acute distress. HEAD: Atraumatic, normocephalic. EYES: Eyes appear normal, extraocular movements intact, sclera anicteric, conjunctiva are normal. No nystagmus. ENT: nares patent, oropharynx clear without exudates. Moist mucous membranes. NECK: Normal range of motion, supple without lymphadenopathy LUNGS: Breath sounds clear to auscultation bilaterally and equal. No wheezes rales or rhonchi. HEART: Heart rate tachycardic, regular rhythm. ABDOMEN: Soft, nontender, normoactive bowel sounds. No rebound, guarding, or rigidity. No masses appreciated. EXTREMITIES: Nontender, good range of motion, no pitting or edema. NEUROLOGICAL: No focal neurological deficits. Moves all extremities spontaneously Motor and sensory grossly intact on exam. PSYCH: Bizarre mood and affect SKIN: Warm, Dry, normal turgor, no rashes or lesions noted on exposed skin (STEVEN LYMAN) - Related Data Allergies/Adverse Reactions: Penicillins Allergy (Verified 02/21/19 20:22) Past Medical History - Social History Smoking Status: Current Every Day Smoker Family History: Reviewed & Not Pertinent Renal/ Medical History: Denies: Hx Peritoneal Dialysis GI Medical History: Reports: Hx Hepatitis - Hepatitis C, on no treatment. Musculoskeletal Medical History: Reports Hx Musculoskeletal Trauma - Left foot fracture Psychiatric Medical History: Reports: Hx Bipolar Disorder, Hx Depression, Hx Schizoaffective Disorder, Hx Schizophrenia Infectious Medical History: Reports: Hx Hepatitis - Hepatitis C, on no treatment. - Immunizations Hx Diphtheria, Pertussis, Tetanus Vaccination: No <STEVEN LYMAN - Last Filed: 02/22/19 22:33> - Vital signs Vitals: Resp Pulse Ox 34 H 98 02/21/19 19:59 02/21/19 19:59 Course - Laboratory Result Diagrams: 02/21/19 21:00 02/21/19 21:00 <ROBBY MIX - Last Filed: 02/22/19 08:09> - Laboratory Result Diagrams: 02/21/19 21:00 02/21/19 21:00 <BENITA NELSON - Last Filed: 02/22/19 18:26> - Laboratory Result Diagrams: 02/21/19 21:00 02/21/19 21:00 <STEVEN LYMAN - Last Filed: 02/22/19 22:33> - Re-evaluation Re-evalutation: Patient seen and examined vital signs reviewed. Laboratory data and/or imaging were ordered as appropriate for the patient's presenting symptoms and complaint, with consideration of any critical or life threatening conditions that may be associated with their obtained history and exam as noted above. Patient was treated with IV fluid, and given Ativan 2 mg. Results were reviewed when available and demonstrated positive for PCP, which is most likely secondary to the dextromethorphan, patient denies actually using PCP. Blood work was essentially otherwise unremarkable The patient was re-evaluated and was stable, heart rate was improving after Ativan dose imaging Evaluation was most consistent with chlorpheniramine and dextromethorphan abuse and intoxication, medical noncompliance, possible acute psychosis, as the patient was talking about drinking her urine, which seemed bizarre, I do feel t hat the patient would benefit from mental health evaluation in the morning, patient was placed on IVC papers for petition overnight, patient seem to be resting comfortably at this time. She is otherwise cleared from a medical standpoint, she is no longer tachycardic, and is resting comfortably. *Note is created using voice recognition software and may contain spelling, syntax or grammatical errors. Laboratory 02/21/19 02/21/19 02/21/19 20:16 20:16 21:00 WBC 8.8 RBC 4.10 Hgb 12.8 Hct 37.3 MCV 91 MCH 31.1 MCHC 34.3 RDW 14.6 H Plt Count 238 Seg Neutrophils % 69.8 Lymphocytes % 21.8 Monocytes % 8.0 Eosinophils % 0.1 Basophils % 0.3 Absolute Neutrophils 6.2 Absolute Lymphocytes 1.9 Absolute Monocytes 0.7 Absolute Eosinophils 0.0 Absolute Basophils 0.0 Sodium Potassium Chloride Carbon Dioxide Anion Gap BUN Creatinine Est GFR ( Amer) Est GFR (Non-Af Amer) Glucose Calcium Total Bilirubin Direct Bilirubin Neonat Total Bilirubin Neonat Direct Bilirubin Neonat Indirect Bili AST ALT Alkaline Phosphatase Total Protein Albumin Serum HCG, Qual Urine Color STRAW Urine Appearance SLIGHTLY-CLOUDY Urine pH 7.0 Ur Specific Sparks 1.006 Urine Protein NEGATIVE Urine Glucose (UA) NEGATIVE Urine Ketones NEGATIVE Urine Blood NEGATIVE Urine Nitrite NEGATIVE Urine Bilirubin NEGATIVE Urine Urobilinogen NEGATIVE Ur Leukocyte Esterase NEGATIVE Urine WBC (Auto) 2 Urine RBC (Auto) 1 Urine Bacteria (Auto) TRACE Squamous Epi Cells Auto 4 Urine Mucus (Auto) RARE Urine Ascorbic Acid NEGATIVE Salicylates Urine Opiates Screen NEGATIVE Urine Methadone Screen NEGATIVE Acetaminophen Ur Barbiturates Screen NEGATIVE Ur Phencyclidine Scrn UNCONFIRMED POSITIVE Ur Amphetamines Screen NEGATIVE U Benzodiazepines Scrn NEGATIVE Urine Cocaine Screen NEGATIVE U Marijuana (THC) Screen NEGATIVE Serum Alcohol 02/21/19 02/21/19 21:00 21:00 WBC RBC Hgb Hct MCV MCH MCHC RDW Plt Count Seg Neutrophils % Lymphocytes % Monocytes % Eosinophils % Basophils % Absolute Neutrophils Absolute Lymphocytes Absolute Monocytes Absolute Eosinophils Absolute Basophils Sodium 137.2 Potassium 4.0 Chloride 105 Carbon Dioxide 26 Anion Gap 6 BUN 10 Creatinine 0.87 Est GFR ( Amer) > 60 Est GFR (Non-Af Amer) > 60 Glucose 71 L Calcium 10.3 H Total Bilirubin 0.5 Direct Bilirubin 0.2 Neonat Total Bilirubin Not Reportable Neonat Direct Bilirubin Not Reportable Neonat Indirect Bili Not Reportable AST 53 H ALT 89 H Alkaline Phosphatase 89 Total Protein 8.6 H Albumin 4.8 Serum HCG, Qual NEGATIVE Urine Color Urine Appearance Urine pH Ur Specific Sparks Urine Protein Urine Glucose (UA) Urine Ketones Urine Blood Urine Nitrite Urine Bilirubin Urine Urobilinogen Ur Leukocyte Esterase Urine WBC (Auto) Urine RBC (Auto) Urine Bacteria (Auto) Squamous Epi Cells Auto Urine Mucus (Auto) Urine Ascorbic Acid Salicylates 1.6 L Urine Opiates Screen Urine Methadone Screen Acetaminophen < 10 L Ur Barbiturates Screen Ur Phencyclidine Scrn Ur Amphetamines Screen U Benzodiazepines Scrn Urine Cocaine Screen U Marijuana (THC) Screen Serum Alcohol < 10 (STEVEN LYMAN) - Vital Signs Vital signs: Temp Pulse Resp BP Pulse Ox 98.4 F 84 30 H 131/82 H 98 02/22/19 09:01 02/22/19 09:01 02/22/19 05:03 02/22/19 09:01 02/22/19 09:01 - Laboratory Laboratory results interpreted by me: 02/21/19 02/21/19 02/21/19 21:00 21:00 21:00 RDW 14.6 H Glucose 71 L Calcium 10.3 H AST 53 H ALT 89 H Total Protein 8.6 H Salicylates 1.6 L Acetaminophen < 10 L Dendron 0.4 L - EKG Interpretation by Me Additional EKG results interpreted by me: EKG demonstrates sinus rhythm with a ventricular rate of 85 bpm, normal axis, QTC prolonged slightly at 490 ms, no evidence of acute ischemia in this EKG or other dysrhythmia, this is compared with prior EKG from 11/11/2018 (STEVEN LYMAN) Critical Care Note - Critical Care Note Total time excluding time spent on procedures (mins): 35 <STEVEN LYMAN - Last Filed: 02/22/19 22:33> - Critical Care Note Comments: Critical care time 35 minutes exclusive from separate billable procedures for a patient requiring complex medical decision making, and high potential for clinical deterioration. In a patient with acute intoxication, requiring close monitoring, for anticholinergic toxidrome, and treatment with IV Ativan. Time spent obtaining history from patient or surrogate, discussions with consultants, development of treatment plan with patient or surrogate, evaluation of patient's response to treatment, examination of patient, ordering and performing t reatments and interventions, ordering and review of laboratory studies, re- evaluation of patient's condition, ordering and review of radiographic studies and review of old charts (STEVEN LYMAN) Discharge <ROBBY MIX - Last Filed: 02/22/19 08:09> <BENITA NELSON - Last Filed: 02/22/19 18:26> <STEVEN LYMAN - Last Filed: 02/22/19 22:33> - Discharge Clinical Impression: Substance abuse Condition: Stable Disposition: HOME, SELF-CARE Additional Instructions: You have been evaluated by both medical and behavioral health teams have been deemed appropriate for discharge. You are highly encouraged to stop using dex tromethorphan. You are recommended to continue with your outpatient mental health services to include your ACT team. AT ANY TIME, IF YOUR SYMPTOMS CHANGE SIGNIFICANTLY OR WORSEN OR YOU DEVELOP NEW SYMPTOMS, RETURN TO THE EMERGENCY DEPARTMENT IMMEDIATELY FOR RE-EVALUATION. Referrals: HERMAN HAYNES, [Primary Care Provider] - Follow up as needed [facility] [Outside] - Follow up as needed
[2019-02-21 20:37] LABS: APPEARANCE,URINE SLIGHTLY-CLOUDY; BILIRUBIN,URINE NEGATIVE (NEGATIVE); COLOR,URINE STRAW; GLUCOSE, URINE NEGATIVE (NEGATIVE); KETONES,URINE NEGATIVE (NEGATIVE); LEUKOCYTE ESTERASE,URINE NEGATIVE (NEGATIVE); NITRITE,URINE NEGATIVE (NEGATIVE); PROTEIN,URINE NEGATIVE (NEGATIVE); URINE SPECIFIC GRAVITY 1.006; UROBILINOGEN,URINE NEGATIVE mg/dL (<2.0)
[2019-02-21 20:50] LABS: URINE AMPHETAMINES SCREEN NEGATIVE; URINE BARBITURATES SCREEN NEGATIVE; URINE BENZODIAZEPINES SCREEN NEGATIVE; URINE COCAINE SCREEN NEGATIVE; URINE MARIJUANA (THC) SCREEN NEGATIVE; URINE METHADONE SCREEN NEGATIVE; URINE PHENCYCLIDINE SCREEN UNCONFIRMED POSITIVE
[2019-02-21] MEDS: NORMAL SALINE 1000 ML 1,000 ML IV PRN ×2 (20:53→23:00)
[2019-02-21 21:14] LABS: ABSOLUTE LYMPHOCYTES (AUTO) 1.9 10^3/uL (0.5-4.7); ABSOLUTE MONOCYTES (AUTO) 0.7 10^3/uL (0.1-1.4); ABSOLUTE NEUT (AUTO) 6.2 10^3/uL (1.7-8.2); BASOPHILS % (AUTO) 0.3 % (0-2); EOSINOPHILS % (AUTO) 0.1 % (0-6); HEMATOCRIT 37.3 % (36.0-47.0); HEMOGLOBIN 12.8 g/dL (12.0-15.5); LYMPHOCYTES % (AUTO) 21.8 % (13-45); MEAN CORPUSCULAR HEMOGLOBIN 31.1 pg (27.0-33.4); MEAN CORPUSCULAR HGB CONC 34.3 g/dL (32.0-36.0); MEAN CORPUSCULAR VOLUME 91 fl (80-97); PLATELET COUNT 238 10^3/uL (150-450); RED CELL DISTRIBUTION WIDTH 14.6 % (11.5-14.0); SEGMENTED NEUTROPHILS % (AUTO) 69.8 % (42-78); TOTAL CELLS COUNTED % (AUTO) 100 %; WHITE BLOOD COUNT 8.8 10^3/uL (4.0-10.5)
[2019-02-21 21:37] LABS: ALANINE AMINOTRANSFERASE 89 U/L (9-52); ALBUMIN 4.8 g/dL (3.5-5.0); ALKALINE PHOSPHATASE 89 U/L (38-126); ANION GAP 6 (5-19); ASPARTATE AMINO TRANSFERASE 53 U/L (14-36); BILIRUBIN,DIRECT 0.2 mg/dL (0.0-0.4); BILIRUBIN,TOTAL 0.5 mg/dL (0.2-1.3); BLOOD UREA NITROGEN 10 mg/dL (7-20); CALCIUM 10.3 mg/dL (8.4-10.2); CARBON DIOXIDE 26 mmol/L (22-30); CHLORIDE 105 mmol/L (98-107); GLUCOSE 71 mg/dL (75-110); SALICYLATE 1.6 mg/dL (2.0-20.0); SODIUM 137.2 mmol/L (137-145); TOTAL PROTEIN 8.6 g/dL (6.3-8.2)
[2019-02-21 21:38] LABS: ACETAMINOPHEN < 10 ug/mL (10-30); ALCOHOL < 10 mg/dL (NONE DETECTED)
[2019-02-21] MEDS ORDERED: LORAZEPAM INJ 2 MG/1 ML VIAL IV ONE (21:49)
--- NOTE | 2019-02-22 08:32 | EKG REPORT ---
SEVERITY:- BORDERLINE ECG - SINUS RHYTHM BORDERLINE PROLONGED QT INTERVAL : Confirmed by: Amelia Paige MD 22-Feb-2019 08:31:28
[2019-02-22 09:09] VITALS: BP 131/82
--- NOTE | 2019-03-20 14:28 | PSYCHOLOGICAL NOTE ---
Psych Note - Psych Note Date seen by psych provider: 02/22/19 Time seen by psych provider: 07:15 Psych Note: Reason for Consult: possible Overdose Pt presented to the ED via EMS with complaints of overdose. EMS reports that pt took 24 tabs of cough and cold medicine. EMS reports that pt is alert and oriented with slurred speech. Per EMS, pt was discharged from [facility] yesterday after a 30 day stay and reports pt was admitted recently 2 weeks prior to that for psych issues. Patient disclosed that she just was released from [facility] and was staying in a mandaen snf. She confirms she took approximately 24 tablets of cold and cough medication and attempt at getting high. She reports that because the people she was with do not know her or seeing anything like that they thought she was trying to kill herself. She denies any thoughts of wanting to hurt herself and other and states she does have an act team now. She discloses she has no interest in stopping and declines assistance in sobriety. Patient is alert and orientated to person, place, time and circumstance. Mood is liable with congruent affect; this is documented baseline for this patient. Patient denies suicidal and homicidal ideation confirms that she was taking coug h medication to get high. Delusions are absent behaviors congruent with an intact reality based presentation i.e. organized linear thought process. Eye contact was well-maintained. Conversational speech is within normal rate, tone and prosody for this patient ie slightly pressured. Intellectual abilities appear to be within average range. Attention and concentration are fair. Insight, judgment, impulse control are historically poor. 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 Patient has a long history of substance abuse and noncompliance on her psychiatric medications. This patient is well-known to clinician; patient's baseline for conversational speech is slightly pressured and patient tends to be very labile with her emotions. Patient denies suicidal and homicidal ideation. Reports indicate the patient was just released from [facility] after one month yesterday. Patient states she has been assigned an ACTT. Patient is recommended to continue working with her outpatient mental health provider, was highly encourage to abstain from using cold and cough medication and to take her prescribed medications as directed. Dr. Adamson was consulted and the care management this patient; attending physician is in agr eement with recommendations and disposition.
== END 2019-02-22 09:09 | disposition home or self-care (01) ==
LOC: ER 19:40
DX: F19.10 Other psychoactive substance abuse, uncomplicated (principal); F25.0 Schizoaffective disorder, bipolar type; F60.3 Borderline personality disorder; F16.20 Hallucinogen dependence, uncomplicated; F17.210 Nicotine dependence, cigarettes, uncomplicated; Z86.19 Personal history of other infectious and parasitic diseases; Z88.0 Allergy status to penicillin
CPT/HCPCS: 93005; 99291; 96361; 96374; 36415; 80307 ×4; 80178; 84703; 85025; 80053; 81001; 93010; J2060; J7030

== ENCOUNTER 2019-05-03 03:32 | Emergency (ER) | payer MEDICARE, MEDICAID ==
[2019-05-03 03:39] VITALS: BP 150/81
--- NOTE | 2019-05-03 03:54 | ER Document Report ---
ED General - General TRAVEL OUTSIDE OF THE [place] IN LAST 30 DAYS: No <NORRIS GALLO - Last Filed: 05/03/19 04:26> <TANESHA PÉREZ - Last Filed: 05/03/19 14:05> <BETSY WOMACK - Last Filed: 05/03/19 14:20> - General Stated Complaint: MED REFILL Time Seen by Provider: 05/03/19 03:40 Primary Care Provider: [facility] [Provider Group] - Follow up as needed HERMAN HAYNES DO [Primary Care Provider] - Follow up as needed Notes: Patient is a 29-year-old female who presents by ambulance because "I need anxiety medicine". She says that the act team will not prescribe her anything narcotic for her anxiety. She feels that she needs something for anxiety. Said her anxiety is out of control. She says that she has been taking dextromethorphan [id number] almost every day for anxiety. She says tonight she took 2 boxes. She says she is now out of this and needs some different for anxiety. She has no other complaints at this time. She does take lithium. She also takes Celexa. She says that she has been taking those as prescribed and has not overdosed on those. Says she is also prescribed Haldol but she only sometimes takes this. She says she says that she has not slept in 3 days. (NORRIS GALLO) - Related Data Allergies/Adverse Reactions: Penicillins Allergy (Verified 02/21/19 20:22) Past Medical History - Social History Smoking Status: Unknown if Ever Smoked Frequency of alcohol use: None Drug Abuse: Prescription drugs Family History: Reviewed & Not Pertinent Renal/ Medical History: Denies: Hx Peritoneal Dialysis GI Medical History: Reports: Hx Hepatitis - Hepatitis C, on no treatment. Musculoskeletal Medical History: Reports Hx Musculoskeletal Trauma - Left foot fracture Psychiatric Medical History: Reports: Hx Bipolar Disorder, Hx Depression, Hx Schizoaffective Disorder, Hx Schizophrenia Infectious Medical History: Reports: Hx Hepatitis - Hepatitis C, on no treatment. - Immunizations Hx Diphtheria, Pertussis, Tetanus Vaccination: No <NORRIS GALLO - Last Filed: 05/03/19 04:26> Review of Systems <NORRIS GALLO - Last Filed: 05/03/19 04:26> - Review of Systems Notes: My Normal Review Basic REVIEW OF SYSTEMS: CONSTITUTIONAL : Denies fever, chills, or sweats. Denies recent illness. EENT: Denies eye, ear, throat, or mouth pain or symptoms. Denies nasal or sinus congestion. CARDIOVASCULAR: Denies chest pain. RESPIRATORY: Denies cough, cold, or chest congestion. Denies shortness of breath, difficulty breathing, or wheezing. GASTROINTESTINAL: Denies abdominal pain. Denies nausea, vomiting, or diarrhea. MUSCULOSKELETAL: Denies neck or back pain or joint pain or swelling. SKIN: Denies rash or skin lesions. NEUROLOGICAL: Denies altered mental status or loss of consciousness. Denies headache. Denies weakness or paralysis or loss of use of either side. Denies problems with gait or speech. Denies sensory or motor loss. PSYCHIATRIC: Anxiety ALL OTHER SYSTEMS REVIEWED AND NEGATIVE. (NORRIS GALLO) Physical Exam <NORRIS GALLO - Last Filed: 05/03/19 04:26> - Vital signs Vitals: Temp Pulse Resp BP Pulse Ox 98.4 F 110 H 12 150/81 H 98 05/03/19 03:37 05/03/19 03:37 05/03/19 03:37 05/03/19 03:37 05/03/19 03:37 - Notes Notes: General Appearance: Well nourished, alert, cooperative, no acute distress, no obvious discomfort. Vitals: reviewed, See vital signs table. Head: no swelling or tenderness to the head Eyes: PERRL, EOMI, Conjuctiva clear Mouth: No decreasd moisture Lungs: No wheezing, No rales, No rhonci, No accessory muscle use, good air exchange bilaterally. Heart: Normal rate, Regular rythm, No murmur, no rub Abdomen: Normal BS, soft, No rigidity, No abdominal tenderness, No guarding, no rebound, no abdominal masses, no organomegaly Extremities: strength 5/5 in all extremities, good pulses in all extremities, no swelling or tenderness in the extremities, no edema. Skin: warm, dry, appropriate color, no rash Neuro: speech is very slow, oriented x 3, normal affect, responds appropriately to questions. Cranial nerves II through XII are intact. Patient has normal gait. Patient has slow speech consistent with her history of frequent overdoses of Dextromethoraphan. (NORRIS GALLO) Course - Laboratory Result Diagrams: 05/03/19 03:50 05/03/19 03:50 <NORRIS GALLO - Last Filed: 05/03/19 04:26> - Laboratory Result Diagrams: 05/03/19 03:50 05/03/19 03:50 <TANESHA PÉREZ - Last Filed: 05/03/19 14:05> - Laboratory Result Diagrams: 05/03/19 03:50 05/03/19 03:50 <BETSY WOMACK - Last Filed: 05/03/19 14:20> - Vital Signs Vital signs: Temp Pulse Resp BP Pulse Ox 98.4 F 110 H 12 150/81 H 98 05/03/19 03:37 05/03/19 03:37 05/03/19 03:37 05/03/19 03:37 05/03/19 03:37 - Laboratory Laboratory results interpreted by me: 05/03/19 05/03/19 03:50 03:50 Monocytes % 13.9 H Chloride 112 H Carbon Dioxide 34 H Anion Gap -4 L Glucose 112 H Salicylates < 1.0 L Acetaminophen < 10 L [place] < 0.2 L - EKG Interpretation by Me Additional EKG results interpreted by me: 05/03/19 03:53 EKG is reviewed and interpreted by me. EKG shows normal sinus rhythm with rate of [address] segment elevation or depression. No ischemic T wave inversions. MO interval, QRS duration, QT intervals are within normal range. Old EKG for comparison is from February 21, 2019. (NORRIS GALLO) Discharge <NORRIS GALLO - Last Filed: 05/03/19 04:26> <TANESHA PÉREZ - Last Filed: 05/03/19 14:05> <BETSY WOMACK - Last Filed: 05/03/19 14:20> - Discharge Clinical Impression: Kary, Schizoaffective disorder Condition: Stable Disposition: HOME, SELF-CARE Additional Instructions: You have been evaluated by both medical and behavioral health providers while in the emergency department. You have been cleared from both acute medical and psychiatric services. You should take your medications as prescribed and follow treatment recommendations made by your enhanced mental health service provider [facility] ([facility]). Bipolar Disorder (when there are symptoms of both Bipolar and Schizophrenia tog ether it is often Schizoaffective Disorder) Bipolar disorder is also called manic-depressive disorder. Depression alternates with brain hyperactivity called kary. Each phase lasts from several days to a few weeks. We don't know exactly what causes bipolar disorder, but it's treatable. During the "manic phase," you may feel elated and energetic. You may have racing thoughts, rapid speech, increased activity, and grandiose ideas. During this time, you may not realize how poor your judgment is. Inappropriate spending, drug abuse, excessive alcohol use, marriage problems, and irresponsible sexual behavior are common during the manic phase. During the "depressive phase," you might feel depressed, guilty, worthless, fatigued, and unable to concentrate. You might have thoughts of suicide. Good treatments are available for bipolar disorder. [place] is a classic drug for bipolar disorder, and is still often useful. If the manic phase is very mild, an antidepressant alone can be prescribed. If the manic phase is very severe, an antipsychotic medicine (such as Haldol) may be needed. The treatment must be matched to your symptoms, so it's important to work closely with your psychiatric care provider. Contact your physician, the hospital emergency center, crisis line, or your counsellor if you are losing control or having self-destructive thoughts. Schizophrenia (when there are symptoms of both Bipolar and Schizophrenia together it is often Schizoaffective Disorder) Schizophrenia is a chemical disorder that affects how the brain functions. The exact cause is unknown, but it tends to run in families. It is NOT caused by emotional trauma. Schizophrenia causes disordered thinking, including unusual beliefs and inability to "process" happenings around the patient. Patients with schizophrenia benefit greatly from medicine. These medicines are called antipsychotics. Never stop the medicine without the doctor's approval. Counselling may help the patient deal with his disease. Schizophrenics require a very ordered environment. Stresses and sudden changes may bring out symptoms. Drugs and alcohol abuse may become problems. Contact the counsellor or crisis line if there are thoughts of suicide or of harming others, or if you become aware of unusual thoughts or beliefs Follow Up Plan: You have been provided prescriptions for Zyprexa 5MG twice a day for mood stabilization/psychosis/impulse control and Cogentin 1MG daily which goes in conjunction with the Zyprexa to curb any tremor side effects. You should take these medications daily as prescribed. You should continue services with your [facility] team (enhanced services provider) for ongoing care and professional support. The [facility] team has coordinated with the [facility] team regarding this emergency department visit and discharge. Prescriptions: Benztropine Mesylate [Cogentin 1 mg Tablet] 1 tab PO DAILY #7 tab Olanzapine [Zyprexa 5 mg Tablet] 5 mg PO BID #14 tablet Referrals: HERMAN HAYNES DO [Primary Care Provider] - Follow up as needed [facility] [Provider Group] - Follow up as needed
[2019-05-03 04:13] LABS: ABSOLUTE EOSINOPHILS # (AUTO) 0.1 10^3/uL (0.0-0.6); ABSOLUTE MONOCYTES (AUTO) 1.1 10^3/uL (0.1-1.4); ABSOLUTE NEUT (AUTO) 4.9 10^3/uL (1.7-8.2); BASOPHILS % (AUTO) 0.3 % (0-2); EOSINOPHILS % (AUTO) 0.7 % (0-6); HEMATOCRIT 37.8 % (36.0-47.0); HEMOGLOBIN 12.5 g/dL (12.0-15.5); LYMPHOCYTES % (AUTO) 24.6 % (13-45); MEAN CORPUSCULAR HEMOGLOBIN 30.6 pg (27.0-33.4); MEAN CORPUSCULAR HGB CONC 33.1 g/dL (32.0-36.0); MEAN CORPUSCULAR VOLUME 93 fl (80-97); MONOCYTES % (AUTO) 13.9 % (3-13); PLATELET COUNT 286 10^3/uL (150-450); RED BLOOD COUNT 4.08 10^6/uL (3.72-5.28); RED CELL DISTRIBUTION WIDTH 13.4 % (11.5-14.0); SEGMENTED NEUTROPHILS % (AUTO) 60.5 % (42-78); TOTAL CELLS COUNTED % (AUTO) 100 %; WHITE BLOOD COUNT 8.1 10^3/uL (4.0-10.5)
[2019-05-03 04:26] LABS: APPEARANCE,URINE CLOUDY; BILIRUBIN,URINE NEGATIVE (NEGATIVE); COLOR,URINE YELLOW; GLUCOSE, URINE NEGATIVE (NEGATIVE); KETONES,URINE NEGATIVE (NEGATIVE); LEUKOCYTE ESTERASE,URINE NEGATIVE (NEGATIVE); NITRITE,URINE NEGATIVE (NEGATIVE); PROTEIN,URINE NEGATIVE (NEGATIVE); URINE SPECIFIC GRAVITY 1.016; UROBILINOGEN,URINE NEGATIVE mg/dL (<2.0)
[2019-05-03 04:34] LABS: ALANINE AMINOTRANSFERASE 34 U/L (9-52); ALBUMIN 4.3 g/dL (3.5-5.0); ALKALINE PHOSPHATASE 84 U/L (38-126); ASPARTATE AMINO TRANSFERASE 31 U/L (14-36); BILIRUBIN,DIRECT 0.2 mg/dL (0.0-0.4); BILIRUBIN,TOTAL 0.2 mg/dL (0.2-1.3); BLOOD UREA NITROGEN 11 mg/dL (7-20); CALCIUM 9.8 mg/dL (8.4-10.2); GLUCOSE 112 mg/dL (75-110); TOTAL PROTEIN 7.7 g/dL (6.3-8.2)
[2019-05-03 04:40] LABS: URINE AMPHETAMINES SCREEN NEGATIVE; URINE BARBITURATES SCREEN NEGATIVE; URINE BENZODIAZEPINES SCREEN NEGATIVE; URINE COCAINE SCREEN NEGATIVE; URINE MARIJUANA (THC) SCREEN NEGATIVE; URINE METHADONE SCREEN NEGATIVE; URINE PHENCYCLIDINE SCREEN UNCONFIRMED POSITIVE
[2019-05-03 04:45] LABS: CARBON DIOXIDE 34 mmol/L (22-30); CHLORIDE 112 mmol/L (98-107); POTASSIUM 3.7 mmol/L (3.6-5.0); SODIUM 142.5 mmol/L (137-145)
[2019-05-03 04:48] LABS: ACETAMINOPHEN < 10 ug/mL (10-30); ALCOHOL < 10 mg/dL (NONE DETECTED); LITHIUM < 0.2 mEq/L (0.6-1.2); SALICYLATE < 1.0 mg/dL (2.0-20.0)
[2019-05-03 04:49] LABS: ANION GAP -4 (5-19)
[2019-05-03] MEDS ORDERED: ACETAMINOPHEN 325 MG TABLET PO ONE (05:04)
[2019-05-03] MEDS ORDERED: OLANZAPINE 5 MG TABLET PO ONE (10:07)
[2019-05-03] MEDS ORDERED: BENZTROPINE MESYLATE 1 MG TABLET PO SCH (10:15)
--- NOTE | 2019-05-03 14:32 | PSYCHOLOGICAL NOTE ---
Psych Note - Psych Note Date seen by psych provider: 05/03/19 Psych Note: Presenting Problem: Came in via EMS saying she needed anxiety medication and the ACT team won't give her narcotics. She said she has been taking dextromethorphan O-T-C daily for anxiety and has had 2 boxes over the past 2 days. She reported being prescribed Prompton (level was <0.2 L), Celexa and Haldol (only sometimes). She noted no sleep in 3 days. Per medical documentation she presented manic, stood in her doorway and interacted with neighboring psychiatric patient who was also manic. They would not listen or be redirected which resulted in physical restraints for safety of patient, neighboring patient, medical staff treating patient and other patients nearby. This morning this clinician observed patient in bed and overheard her yelling and demanding to talk with someone and when she did not get the attention or what she wanted she called out obscenities. At evaluation 45 minutes later patient apologized for earlier behavior. She identified she was "upset earlier and just couldn't keep it to herself." She stated she is on medications, the doctor didn't refill them, she has [facility] and sees a doctor on [address] via [facility]. She stated "they don't prescribe me anything for anxiety or sleep. She then started crying and asked that her door not be closed. She asked to be taken out of restraints and was made aware she would need to prove behaviorally she would cooperate. UDS was positive for opiates and Phencyclidine. Patient seen in the ED by [facility] 12 times now since 04/14/19. She was last seen on 02/21/19 for possible OD, after she admitted she took 24 tablets of cough/cold medication and reported taking cough medication to manage her anxiety. At that visit she was diagnosed with Schizoaffective Disorder, Borderline Personality Disorder and Phencyclidine Use Disorder. Later in the day patient became more cooperative and easily redirected. Mood lability decreased. She was able to carry on more dialogue conversation. Called mother/EC, Kayli Quintanilla, no answer, left basic voice mail with call back information. Coordinated care with Buddy SANTOYOT. Spoke to administrative worker Bhumi. She identified patient "is rather new to [facility], [facility] saw patient 05/01/19, they v isit at least once a week, she would be contacting [facility] directly (provided [facility] team office number if questions) to inform patient had been to ED and was being discharged and she stated a follow up with take place in 5-7 days if not sooner. Diagnosis: Schizoaffective Disorder, Bipolar Type by history Borderline Personality Disorder by history Phencyclidine Use Disorder, Sever by history (current UDS positive for it as well) Medication recommendations made by the psychiatric medical provider, Dr. Adela MD., includes: Add Zyprexa 5MG twice a day for mood stabilization/psychosis/impulse control Add Cogentin 1MG daily to curb tremor side effects often associated with antipsychotic medications Impression/Plan: Patient is cleared from acute psychiatric services. She denied SI/HI and these were never presenting concerns. She initially presented manic. She was administered medication and got some sleep. Coordinated with [facility]. They were made aware of ED visit and discharge. Patient instructed to call [facility] once home and she said that was where the phone number was. She was instructed to take medications ACTT prescribed since she threw away her paper prescriptions from the ED and she said "yeah those weren't even the right medications." Medical staff provided patient with yellow cab contact number. This clinician walked patient out to the ED lobby, dialed the number on the wall phone, initiated the call, then handed phone over to patient who appropriately provided name and address where she was going. This clinician also heard patient say "I have chambers or card." She was made aware they would come right out front and she walked out the front doors to wait. Consulted with Dr. Adamson regarding the management and care of patient. ED Physician in agreement with recommendations.
--- NOTE | 2019-05-03 22:12 | EKG REPORT ---
SEVERITY:- NORMAL ECG - SINUS RHYTHM : Confirmed by: Leanna Harrell 03-May-2019 22:11:43
== END 2019-05-03 15:00 | disposition home or self-care (01) ==
LOC: ER 03:32
DX: Z76.0 Encounter for issue of repeat prescription (principal); F25.0 Schizoaffective disorder, bipolar type; Z88.0 Allergy status to penicillin; Z79.899 Other long term (current) drug therapy
CPT/HCPCS: 93005; 99285; 36415; 80307 ×4; 80178; 84703; 85025; 80053; 81001; 93010; A9270 ×3

== ENCOUNTER 2019-05-24 02:10 | Emergency (ER) | payer MEDICARE, MEDICAID ==
[2019-05-24] MEDS ORDERED: DIPH/PERTUSS(ACELL)/TETANUS VAC/PF 0.5 ML SYR (>=10YO) IM ONE (02:44)
[2019-05-24 02:47] LABS: ABSOLUTE LYMPHOCYTES (AUTO) 1.3 10^3/uL (0.5-4.7); ABSOLUTE MONOCYTES (AUTO) 0.7 10^3/uL (0.1-1.4); ABSOLUTE NEUT (AUTO) 9.6 10^3/uL (1.7-8.2); BASOPHILS % (AUTO) 0.1 % (0-2); EOSINOPHILS % (AUTO) 0.1 % (0-6); HEMATOCRIT 35.3 % (36.0-47.0); HEMOGLOBIN 11.5 g/dL (12.0-15.5); MEAN CORPUSCULAR HEMOGLOBIN 30.3 pg (27.0-33.4); MEAN CORPUSCULAR HGB CONC 32.5 g/dL (32.0-36.0); MEAN CORPUSCULAR VOLUME 93 fl (80-97); MONOCYTES % (AUTO) 6.2 % (3-13); PLATELET COUNT 305 10^3/uL (150-450); RED BLOOD COUNT 3.78 10^6/uL (3.72-5.28); RED CELL DISTRIBUTION WIDTH 13.5 % (11.5-14.0); SEGMENTED NEUTROPHILS % (AUTO) 82.6 % (42-78); TOTAL CELLS COUNTED % (AUTO) 100 %; WHITE BLOOD COUNT 11.7 10^3/uL (4.0-10.5)
[2019-05-24 02:49] LABS: APPEARANCE,URINE CLEAR; BILIRUBIN,URINE NEGATIVE (NEGATIVE); COLOR,URINE STRAW; GLUCOSE, URINE NEGATIVE (NEGATIVE); KETONES,URINE NEGATIVE (NEGATIVE); LEUKOCYTE ESTERASE,URINE NEGATIVE (NEGATIVE); NITRITE,URINE NEGATIVE (NEGATIVE); PROTEIN,URINE NEGATIVE (NEGATIVE); URINE SPECIFIC GRAVITY 1.012; UROBILINOGEN,URINE NEGATIVE mg/dL (<2.0)
--- NOTE | 2019-05-24 02:49 | ER Document Report ---
Addendum entered and electronically signed by ETHAN CANO DO 05/24/19 10:31: Course - Re-evaluation Re-evalutation: 05/24/19 10:30 Mental health has seen and evaluated the patient. I find no further need for treatment at this time. Patient remained stable and appears to be at baseline. Will DC at this time. Patient requesting Haldol and Adderall. Obviously am not going to do this. She will need to discuss this with an outpatient provider. Will DC in stable condition. - Vital Signs Vital signs: Temp Pulse Resp BP Pulse Ox 99.5 F 106 H 16 120/98 H 99 05/24/19 02:10 05/24/19 02:10 05/24/19 03:44 05/24/19 06:45 05/24/19 06:45 - Laboratory Result Diagrams: 05/24/19 02:35 05/24/19 02:35 Laboratory results interpreted by me: 05/24/19 05/24/19 05/24/19 02:35 02:35 02:35 WBC 11.7 H Hgb 11.5 L Hct 35.3 L Seg Neutrophils % 82.6 H Lymphocytes % 11.0 L Absolute Neutrophils 9.6 H Chloride 116 H Carbon Dioxide 31 H Anion Gap -3 L AST 146 H ALT 99 H Salicylates < 1.0 L Acetaminophen < 10 L [place] < 0.2 L Discharge - Discharge Clinical Impression: Polysubstance abuse Facial laceration Qualifiers: Encounter type: initial encounter Qualified Code(s): S01.81XA - Laceration without foreign body of other part of head, initial encounter Condition: Stable Disposition: HOME, SELF-CARE Instructions: Antibiotic Ointment Protection ([facility]), Laceration Care ([facility]), Tetanus Immunization Given ([facility]) Additional Instructions: You have been evaluated by both medical and behavioral health teams have been deemed appropriate for discharge. Keep wound clean with soap and water. Do not submerge wound into standing water. Have sutures removed in 7 days. If you develop increased redness, drainage, pain, or any other new or concerning symptoms, return immediately to the emergency department for reevaluation. You are highly encouraged to stop using dextromethorphan. You are recommended to continue with your outpatient mental health services to include your ACT team with [facility] for both mental health and substance abuse, and to build your positive coping skills. You are encouraged to engage in self affirmations to build your self esteem. AT ANY TIME, IF YOUR SYMPTOMS CHANGE SIGNIFICANTLY OR WORSEN OR YOU DEVELOP NEW SYMPTOMS, RETURN TO THE EMERGENCY DEPARTMENT IMMEDIATELY FOR RE-EVALUATION. Referrals: [facility] [Outside] - Follow up as needed HERMAN HAYNES DO [Primary Care Provider] - Follow up as needed Addendum entered and electronically signed by ROBBY MIX LCSWA 05/24/19 08:17: Discharge - Discharge Clinical Impression: Polysubstance abuse Facial laceration Qualifiers: Encounter type: initial encounter Qualified Code(s): S01.81XA - Laceration without foreign body of other part of head, initial encounter Condition: Stable Disposition: HOME, SELF-CARE Instructions: Antibiotic Ointment Protection ([facility]), Laceration Care ([facility]), Tetanus Immunization Given ([facility]) Additional Instructions: You have been evaluated by both medical and behavioral health teams have been deemed appropriate for discharge. Keep wound clean with soap and water. Do not submerge wound into standing water. Have sutures removed in 7 days. If you develop increased redness, drainage, pain, or any other new or concerning symptoms, return immediately to the emergency department for reevaluation. You are highly encouraged to stop using dextromethorphan. You are recommended to continue with your outpatient mental health services to include your ACT team with [facility] for both mental health and substance abuse, and to build your positive coping skills. You are encouraged to engage in self affirmations to build your self esteem. AT ANY TIME, IF YOUR SYMPTOMS CHANGE SIGNIFICANTLY OR WORSEN OR YOU DEVELOP NEW SYMPTOMS, RETURN TO THE EMERGENCY DEPARTMENT IMMEDIATELY FOR RE-EVALUATION. Referrals: HERMAN HAYNES DO [Primary Care Provider] - Follow up as needed [facility] [Outside] - Follow up as needed Original Note: ED General - General TRAVEL OUTSIDE OF THE [place] IN LAST 30 DAYS: No <NICOLE SHAFFER - Last Filed: 05/24/19 05:41> <IAN MIXON - Last Filed: 05/24/19 06:09> - General Stated Complaint: POSSIBLE OVERDOSE Time Seen by Provider: 05/24/19 02:38 Primary Care Provider: HERMAN HAYNES DO [Primary Care Provider] - Follow up as needed - HPI Notes: Patient is a 29-year-old female who presents to the emergency department for evaluation. She states she took too much of her cold medicine. I asked her why, she states "because I liked it." She denies any suicidal or homicidal ideation, no visual auditory hallucination. She states she is taking all of her medications as prescribed. She is unsure when her last tetanus shot was. She has a clear laceration on her face. I asked what happened, she states "I am stupid." It is noted by EMS that there is a broken mirror in her house. She r félixlly will not elaborate on what happened in regards to that. (NICOLE SHAFFER) - Related Data Allergies/Adverse Reactions: Penicillins Allergy (Verified 02/21/19 20:22) Past Medical History - General Information source: Patient - Social History Smoking Status: Current Every Day Smoker Frequency of alcohol use: None Drug Abuse: Other - Zypf-jpa-scaufyp cold medications Family History: Reviewed & Not Pertinent Renal/ Medical History: Denies: Hx Peritoneal Dialysis GI Medical History: Reports: Hx Hepatitis - Hepatitis C, on no treatment. Musculoskeletal Medical History: Reports Hx Musculoskeletal Trauma - Left foot fracture Psychiatric Medical History: Reports: Hx Bipolar Disorder, Hx Depression, Hx Schizoaffective Disorder, Hx Schizophrenia Infectious Medical History: Reports: Hx Hepatitis - Hepatitis C, on no tr eatment. - Immunizations Hx Diphtheria, Pertussis, Tetanus Vaccination: No <NICOLE SHAFFER - Last Filed: 05/24/19 05:41> Review of Systems - Review of Systems Constitutional: No symptoms reported EENT: No symptoms reported Cardiovascular: Palpitations, Heart racing Respiratory: No symptoms reported Gastrointestinal: No symptoms reported Genitourinary: No symptoms reported Musculoskeletal: No symptoms reported Skin: See HPI Neurological/Psychological: See HPI <NICOLE SHAFFER - Last Filed: 05/24/19 05:41> Physical Exam <NICOLE SHAFFER - Last Filed: 05/24/19 05:41> - Vital signs Vitals: Temp Pulse Resp BP Pulse Ox 99.5 F 106 H 18 147/95 H 100 05/24/19 02:10 05/24/19 02:10 05/24/19 02:10 05/24/19 02:10 05/24/19 02:10 - Notes Notes: This is a 29-year-old female who appears her stated age, mild to moderate distress. She is mildly agitated, having difficulty sitting still in the bed. Head is normocephalic. She does have a 4 cm mildly jagged laceration just lateral to the eye, by about 1.5 cm. It does gape with pressure. Pupils are equal and round, reactive to light. Nares are patent without septal hematoma. Oral mucosa is moist. Heart is tachycardic with normal S1-S2. Lungs are clear to station bilaterally. Abdomen is soft, nontender, normoactive bowel sounds. Extremities without cyanosis, clubbing. No posterior calf tenderness. Patient is awake and alert, oriented x3. No gross facial asymmetry. She was all 4 extremities spontaneously. (NICOLE SHAFFER) Course - Laboratory Result Diagrams: 05/24/19 02:35 05/24/19 02:35 - Diagnostic Test Radiology reviewed: Reports reviewed <NICOLE SHAFFER - Last Filed: 05/24/19 05:41> - Laboratory Result Diagrams: 05/24/19 02:35 05/24/19 02:35 <IAN MIXON - Last Filed: 05/24/19 06:09> - Re-evaluation Re-evalutation: 05/24/19 02:48 Patient presents emergency department for evaluation. She is placed on a die try out worker stamping, placed in a hallway bed given her altered mental status and history of overdose. Given her head injury and her less than forthcoming history in regards to it, CT scan of the head was ordered. Blood work for psychiatric evaluation, as well as lithium level, was ordered as well. Patient's tetanus is updated. We will continue to monitor. 05/24/19 05:42 Laboratory investigations were remarkable for hyperchloremia, likely secondary to patient's drug use and increased sweating. Her wound was cleansed and closed without issue, please see separate procedure note. She is not acidotic. Her lithium level is low. Her drug screen was positive, most notably for PCP. Patient has polysubstance abuse issues, medication noncompliance issues. She actually has a suitcase of medications with her. She still remains mildly dustin tated, but is medically cleared. We will go ahead and give her 1 more dose of Ativan, await psychiatric input. 05/24/19 05:44 (NICOLE SHAFFER) - Vital Signs Vital signs: Temp Pulse Resp BP Pulse Ox 99.5 F 106 H 16 90/72 L 99 05/24/19 02:10 05/24/19 02:10 05/24/19 03:44 05/24/19 04:14 05/24/19 06:00 - Laboratory Laboratory results interpreted by me: 05/24/19 05/24/19 05/24/19 02:35 02:35 02:35 WBC 11.7 H Hgb 11.5 L Hct 35.3 L Seg Neutrophils % 82.6 H Lymphocytes % 11.0 L Absolute Neutrophils 9.6 H Chloride 116 H Carbon Dioxide 31 H Anion Gap -3 L AST 146 H ALT 99 H Salicylates < 1.0 L Acetaminophen < 10 L [place] < 0.2 L - Diagnostic Test Radiology results interpreted by me: 05/24/19 05:[address] 05/24/19 02:44 IMPRESSION: No acute intracranial abnormalities. (NICOLE SHAFFER) - EKG Interpretation by Me Additional EKG results interpreted by me: 05/24/19 02:49 Sinus tachycardia with a rate of 106 bpm. Normal axis and intervals, nonspecific ST changes, but no acute changes concerning for infarction. (NICOLE SHAFFER) Procedures - Laceration/Wound Repair Left Face Wound length (cm): 4 Wound's Depth, Shape: Superficial, Linear Laceration pre-procedure: Sterile PPE donned Anesthetic type: 1% Lidocaine Wound explored: Clean, No foreign body removed Wound Debrided: Minimal Wound Repaired With: Sutures Suture Size/Type: 6:0, Prolene Layer Closure?: No Post-procedure NV exam normal: Yes Complications: No <IAN MIXON - Last Filed: 05/24/19 06:09> Discharge <NICOLE SHAFFER - Last Filed: 05/24/19 05:41> <IAN MIXON - Last Filed: 05/24/19 06:09> - Discharge Clinical Impression: Polysubstance abuse Facial laceration Qualifiers: Encounter type: initial encounter Qualified Code(s): S01.81XA - Laceration without foreign body of other part of head, initial encounter Condition: Stable Disposition: OTHER Instructions: Antibiotic Ointment Protection ([facility]), Laceration Care ([facility]), Tetanus Immunization Given ([facility]) Additional Instructions: Keep wound clean with soap and water. Do not submerge wound into standing water. Have sutures removed in 7 days. If you develop increased redness, drainage, pain, or any other new or concerning symptoms, return immediately to [facility] emergency department for reevaluation. Referrals: HERMAN HAYNES, [Primary Care Provider] - Follow up as needed
[2019-05-24 03:01] LABS: ADD MANUAL MICROSCOPIC YES
[2019-05-24 03:02] LABS: WBC,URINE RARE /HPF
[2019-05-24 03:05] LABS: ALANINE AMINOTRANSFERASE 99 U/L (9-52); ALBUMIN 4.3 g/dL (3.5-5.0); ALKALINE PHOSPHATASE 101 U/L (38-126); ASPARTATE AMINO TRANSFERASE 146 U/L (14-36); BILIRUBIN,DIRECT 0.2 mg/dL (0.0-0.4); BILIRUBIN,TOTAL 0.2 mg/dL (0.2-1.3); BLOOD UREA NITROGEN 13 mg/dL (7-20); CALCIUM 9.4 mg/dL (8.4-10.2); CHLORIDE 116 mmol/L (98-107); GLUCOSE 85 mg/dL (75-110); POTASSIUM 3.9 mmol/L (3.6-5.0); TOTAL PROTEIN 7.7 g/dL (6.3-8.2)
[2019-05-24 03:06] LABS: ACETAMINOPHEN < 10 ug/mL (10-30); ALCOHOL < 10 mg/dL (NONE DETECTED); SALICYLATE < 1.0 mg/dL (2.0-20.0)
[2019-05-24 03:07] LABS: URINE AMPHETAMINES SCREEN NEGATIVE; URINE BARBITURATES SCREEN NEGATIVE; URINE BENZODIAZEPINES SCREEN NEGATIVE; URINE COCAINE SCREEN NEGATIVE; URINE MARIJUANA (THC) SCREEN NEGATIVE; URINE METHADONE SCREEN NEGATIVE; URINE PHENCYCLIDINE SCREEN UNCONFIRMED POSITIVE
[2019-05-24] MEDS ORDERED: LORAZEPAM INJ 2 MG/1 ML VIAL IV ONE (03:14)
[2019-05-24 03:19] LABS: ANION GAP -3 (5-19); CARBON DIOXIDE 31 mmol/L (22-30); SODIUM 143.8 mmol/L (137-145)
[2019-05-24] MEDS ORDERED: LORAZEPAM INJ 2 MG/1 ML VIAL IM ONE ×2 (03:20→05:43)
--- NOTE | 2019-05-24 03:58 | RADIOLOGY REPORT (SQ) ---
EXAM DESCRIPTION: CT HEAD WITHOUT IV CONTRAST COMPLETED DATE/TME: 05/24/2019 02:44 CLINICAL HISTORY: 29 years, Female, head injury COMPARISON: None Available. Technique: Contiguous axial images of the brain were obtained without the administration of intravenous contrast. Coronal and sagittal reformats obtained and reviewed. This exam was performed according to our departmental dose-optimization program which includes use of Automated Exposure Control, adjustment of the mA and/or kV according to patient size and/or use of iterative reconstruction technique. Findings: Brain: No hemorrhage. No territorial infarct. No mass effect. No herniation. Ventricles: Within normal limits for patient's age. Bones: No acute osseous abnormality. Paranasal sinuses: Unremarkable. Mastoid air cells: Unremarkable. Soft tissues: No acute abnormality. IMPRESSION: No acute intracranial abnormalities.
[2019-05-24] MEDS ORDERED: LIDOCAINE 1% INJ-PF (10 MG/ML) 30 ML SDV INJ ONE (04:16)
--- NOTE | 2019-05-24 07:59 | PSYCHOLOGICAL NOTE ---
Psych Note - Psych Note Date seen by psych provider: 05/24/19 Time seen by psych provider: 07:30 45 Psych Note: Reason for Consult: possible Overdose Patient is a 29-year-old female who presents to the emergency department for evaluation. She states she took too much of her cold medicine. Patient has a history of self-harm however denies engaging for many months parental self-harm behaviors include both cutting and burning). Patient reports she cut herself ac cidentally when she fell into a mirror. Patient reports working with her outpatient mental health provider which is a higher level of care through [facility]. She has been working with them for approximately 2 months now. Patient continues to demonstrate low self-esteem in which clinician discussed engaging in affirmations. Patient discloses needing Adderall to address her ADHD and feels very strongly that if she is on a stimulant that she would stop misusing cold medication. Clinician discussed concerns of patient's 10-years of cough medication misuse in the probability of misuse and stimulants. patient was recommended to discuss ADHD medication that is not a stimulant; however, patient is resistant. Patient is alert and orientated to person, place, time and circumstance. Mood is currently very subdued with expressive affect (ie opening eyes wide, working her mouth to mimic clinician's words etc). Clinician notes the patient is currently demonstrating that she is still feeling the effects of the cough medication and Ativan that she received (1mg IM at 0323 and 1mg IM at 0558). Patient denies suicidal and homicidal ideation confirms that she was taking cough medication to get high. Mild delusions of persecution are noted and patient is demonstrating continued effects of responding to internal stimuli from the DXM with probably mild visual hallucinations. Patient's behaviors continue to demonstrate that she does currently have an intact reality based presentation (i.e. organized linear, thought process "I didn't come with my pocketbook..how am I going to get home? Will you be able to help me get home?," answers questions appropriately, stays on topic, and maintains good eye contact). Thought processes are focused on needing prescription for Adderall. Eye contact was well-maintained. Conversational speech is slow and halting. Intellectual abilities appear to be within average range. Attention and concentration are fair. Insight, judgment, impulse control are historically poor. 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 Patient has a long history of substance abuse and noncompliance on her psychiatric medications. This patient is well-known to clinician; patient's baseline for conversational speech is slightly pressured and patient tends to be very labile with her emotions. Currently the patient is demonstrating more subdued mood with slow, halting conversational speech and mild delusions of persecution. This wou ld be congruent with the patient's long history of DXM abuse and the Ativan she has received with at [facility] ED. Patient denies suicidal and homicidal ideation. Patient makes comments indicating low self esteem (ie. "people don't think I deserve to be alive...they think I am not worth it) which is a chronic issue for this patient. Patient is established with [facility] for higher level outpatient services. Patient is recommended to continue working with her outpatient mental health provider, was highly encourage to abstain from using cold and cough medication and to take her prescribed medications as directed. Dr. Adamson was consulted and the care management this patient; attending physician is in agreement with recommendations and disposition.
--- NOTE | 2019-05-24 08:12 | EKG REPORT ---
SEVERITY:- OTHERWISE NORMAL ECG - SINUS TACHYCARDIA : Confirmed by: Elder Carolina MD 24-May-2019 08:11:55
[2019-05-24 11:00] VITALS: BP 130/79
== END 2019-05-24 10:45 | disposition home or self-care (01) ==
LOC: ER 02:10
PROC: 0HQ1XZZ Repair Face Skin, External Approach (ICD-10-PCS; principal; 2019-05-24)
DX: S01.81XA Laceration without foreign body of other part of head, initial encounter (principal); T50.991A Poisoning by other drugs, medicaments and biological substances, accidental (unintentional), initial encounter; F19.10 Other psychoactive substance abuse, uncomplicated; X58.XXXA Exposure to other specified factors, initial encounter; F17.200 Nicotine dependence, unspecified, uncomplicated
CPT/HCPCS: 93005; 96376; 99285; 90471; 96374; 36415; 80307 ×4; 80178; 84703; 85025; 80053; 81001; 70450; 90715; 93010; 12013; J3490; J2060

== ENCOUNTER 2019-07-11 20:38 | Emergency (ER) | payer MEDICARE, MEDICAID ==
[2019-07-11] MEDS ORDERED: NORMAL SALINE 1000 ML 1,000 ML IV ONE (21:14)
--- NOTE | 2019-07-11 21:16 | ER Document Report ---
ED Substance Abuse / Acc. OD - General TRAVEL OUTSIDE OF THE [place] IN LAST 30 DAYS: No <AMADOU SEBASTIAN - Last Filed: 07/12/19 05:43> <TANESHA PÉREZ - Last Filed: 07/12/19 14:06> <SIL WEBB - Last Filed: 07/12/19 14:38> - General Stated Complaint: POSSIBLE OVERDOSE Time Seen by Provider: 07/11/19 21:06 Primary Care Provider: [facility] [Provider Group] - Follow up as needed (Continue with involvment with ACTT services (enhanced mental health services)) HERMAN HAYNES, [Primary Care Provider] - Follow up as needed Notes: Patient is a 29-year-old female that comes to the emergency department for chief complaint of substance abuse/overdose. She has by EMS, I am given report by nurse, EMS he did not tell us who called them, patient states that she lives alone. Patient does tell me that she took "cold medicine" because it is a "good drug to take". She is on multiple prescription medications including Haldol, lithium, gabapentin, however reportedly she does not take these. Her glucose was 60 and EMS gave her oral glucose. Patient denies alcohol, recreational drugs, suicidal ideations. She is unable to tell me exactly what she took. Berto oviedo reportedly has a history of ingesting cold medications in an attempt to get dextromethorphan. (AMADOU SEBASTIAN) - Related Data Allergies/Adverse Reactions: Penicillins Allergy (Verified 02/21/19 20:22) Past Medical History - General Information source: Patient, Emergency Med Personnel - Social History Smoking Status: Unknown if Ever Smoked Frequency of alcohol use: None Drug Abuse: Other - Uiuo-sku-buuluzw medication abuse Lives with: Alone Family History: Reviewed & Not Pertinent Renal/ Medical History: Denies: Hx Peritoneal Dialysis GI Medical History: Reports: Hx Hepatitis - Hepatitis C, on no treatment. Musculoskeletal Medical History: Reports Hx Musculoskeletal Trauma - Left foot fracture Psychiatric Medical History: Reports: Hx Bipolar Disorder, Hx Depression, Hx Schizoaffective Disorder, Hx Schizophrenia Infectious Medical History: Reports: Hx Hepatitis - Hepatitis C, on no t reatment. - Immunizations Hx Diphtheria, Pertussis, Tetanus Vaccination: Yes <AMADOU SEBASTIAN - Last Filed: 07/12/19 05:43> Review of Systems - Review of Systems Constitutional: See HPI EENT: No symptoms reported Cardiovascular: No symptoms reported Respiratory: No symptoms reported Gastrointestinal: No symptoms reported Genitourinary: No symptoms reported Female Genitourinary: No symptoms reported Musculoskeletal: No symptoms reported Skin: No symptoms reported Hematologic/Lymphatic: See HPI Neurological/Psychological: See HPI <AMADOU SEBASTIAN - Last Filed: 07/12/19 05:43> Physical Exam <AMADOU SEBASTIAN - Last Filed: 07/12/19 05:43> - Vital signs Vitals: Temp Pulse Resp BP Pulse Ox 98.3 F 124 H 18 159/91 H 98 07/11/19 20:40 07/11/19 20:40 07/11/19 20:40 07/11/19 20:40 07/11/19 20:40 - Notes Notes: GENERAL: Alert, restless HEAD: Normocephalic, atraumatic. EYES: Pupils equal, round, and reactive to light. Extraocular movements intact. ENT: Oral mucosa very dry, tongue midline. Oropharynx unremarkable. Airway patent. Nares patent, no nasal septal hematoma, TM's intact. NECK: Full range of motion. Supple. Trachea midline. LUNGS: Clear to auscultation bilaterally, no wheezes, rales, or rhonchi. No respiratory distress. HEART: Tachycardic, normal rhythm, no murmur ABDOMEN: Soft, non-tender. Non-distended. EXTREMITIES: Moves all 4 extremities spontaneously. No edema, normal radial and dorsalis pedis pulses bilaterally. No cyanosis. BACK: no cervical, thoracic, lumbar midline tenderness. No saddle anesthesia, normal distal neurovascular exam. Moves all extremities in full range of motion. NEUROLOGICAL: Alert and oriented to location but not clear with events. Some trouble with word finding. GCS of 15. Cranial nerves II through XII grossly intact. PSYCH: Agitated, anxious, but still directable SKIN: Slightly diaphoretic (AMADOU SEBASTIAN) Course - Laboratory Result Diagrams: 07/11/19 21:02 07/11/19 21:02 <AMADOU SEBASTIAN - Last Filed: 07/12/19 05:43> - Laboratory Result Diagrams: 07/11/19 21:02 07/11/19 21:02 <SIL WEBB - Last Filed: 07/12/19 14:38> - Re-evaluation Re-evalutation: 07/11/19 21:15 On initial evaluation patient is somewhat tachycardic at 115, her pupils are non-specific, her mucous membranes are very dry, she has a lot of restless movements and grasping motions, she occasionally has difficulty getting out and forming words. 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 She does follow all my directions however, she does attempt to answer questions. She does confirm that she took "cold medicine", she denies alcohol, recreational drugs. She denies suicidal ideations, she states she took it because it is "a good drug to take". Unfortunately EMS was unable to find any evidence of boxes that she may have taken and patient is unable to tell me what she took or how much she took. Patient will be treated and monitored for her anticholinergic symptoms with hopeful clearance medically afterwards. Discussed with Dr. Jack. 07/12/19 03:40 Patient has been reevaluated multiple times. She has had resolution of the probable anticholinergic symptoms including sweating, tachycardia, dry mouth, etc. However despite the resolution of the symptoms patient has become more bizarre, now she is making extreme statements such as "I saw the devil and the devil fucked me, and that made me a Baptism". Patient respond to some questions appropriately, responds to other questions in bizarre statements (i.e. "I just wish I was black"). Discussed with Dr. Jack again. Initial plan was to let patient essentially sober up from her suspected dexamethasone and suspected anticholinergic symptoms and then potentially discharge patient, however now that she is extremely bizarre she will be placed on IVC paperwork and evaluated by the mental health team. Patient is medically cleared. I suspect patient is acutely psychotic with a history of schizophrenia and medication noncompliance. (AMADOU SEBASTIAN) - Vital Signs Vital signs: Temp Pulse Resp BP Pulse Ox 97.6 F 82 16 140/80 H 99 07/12/19 08:20 07/12/19 08:20 07/12/19 08:20 07/12/19 08:20 07/12/19 08:20 - Laboratory Laboratory results interpreted by me: 09/03/19 09/03/19 21:02 23:50 Carbon Dioxide 31 H Anion Gap 2 L AST 41 H Urine Blood SMALL H Acetaminophen < 10 L [place] < 0.2 L Discharge <AMADOU SEBASTIAN - Last Filed: 07/12/19 05:43> <TANESHA PÉREZ - Last Filed: 07/12/19 14:06> <SIL WEBB - Last Filed: 07/12/19 14:38> - Discharge Clinical Impression: Noncompliance with medication regimen, Misuse of wgby-bky-whbltjl medications Psychotic disorder Qualifiers: Psychosis type: schizophrenia Schizophrenia type: unspecified Qualified Code (s): F20.9 - Schizophrenia, unspecified Condition: Stable Disposition: HOME, SELF-CARE Additional Instructions: You have been evaluated by both medical and behavioral health providers while in the emergency department. You have been cleared from both acute medical and psychiatric services. You are recommended to abstain from the use of over the counter cold medication. The way you use it causes psychosis, you already have a pre existing mental health condition that has symptoms of psychosis and it can be detrimental to your mental and/or physical health. Continue services with [facility] ACTT. Altered Mental Status (likely due to misuse/overuse of over the counter cold medication) An altered mental status is a change in the normal functioning of the brain. This alteration of function can range from minor decreased brain function with some forgetfulness and confusion to complete loss of consciousness and coma. There are many possible causes of an altered mental status and include brain injuries such as trauma or strokes, problems with oxygen supply to the brain, fever and infections of the brain and/or elsewhere in the body, metabolic abnormalities such as low or high blood sugar, overdoses or excessive medication ingestion, and mental and psychiatric illnesses. Sometimes the altered mental status resolves and a definite cause is not determined. If a cause for your altered mental status was found, it has likely been corrected. Your evaluation has not shown any condition that requires that you be admitted to the hospital. It is believed that you are safe to leave and return to your home. If you have a return of your symptoms, you should return for re-evaluation. Hallucinations (likely combination of poor sleep, overuse/misuse of over the counter cold medication and mental health diagnosis) You seem to be having hallucinations. Hallucinations are seeing, hearing, or feeling things that don't exist. These symptoms commonly occur with drug abuse and schizophrenia. Drugs like PCP, LSD, MDMA, peyote, and "psychedelic mushrooms" can cause frightening hallucinations. Users of methamphetamine or crack cocaine often see and feel bugs crawling on their skin. Patients with schizophrenia may hear voices that no one else can hear. The delusions of schizophrenia often involve conspiracies or relationships that are not real. When symptoms are due to drug abuse, the mental state usually improves as the drug wears off. Someone you trust should be with you until you are better, to protect you and calm your fears. Tranquilizer medicine is helpful at controlling hallucinations, anxiety, and deluded thoughts. Get a proper diet and enough sleep. Most patients do very well when they get proper medical treatment and social support. You should return at once if your symptoms get worse, if you are having suicidal thoughts or thoughts about hurting others, or if you feel that you are in danger. Follow-Up Plan: The [facility] team coordinated with both your mother and [facility] team. You were administered your morning medications. You should take your home medications as prescribed and avoid using the over the counter cold medication. Mother will take you home and ACTT will follow up with you. If your symptoms persist or worsen immediately contact your physician, utilize ACTT or return to the emergency department. Prescriptions: Gabapentin [Neurontin 300 mg Capsule] 300 mg PO Q8 #90 cap Referrals: [facility] [Provider Group] - Follow up as needed (Continue with involvment with ACTT services (enhanced mental health services)) HERMAN HAYNES, [Primary Care Provider] - Follow up as needed
[2019-07-11] MEDS ORDERED: LORAZEPAM INJ 2 MG/1 ML VIAL IV ONE ×2 (21:17→23:14)
[2019-07-11 21:24] LABS: ABSOLUTE EOSINOPHILS # (AUTO) 0.1 10^3/uL (0.0-0.6); ABSOLUTE LYMPHOCYTES (AUTO) 2.1 10^3/uL (0.5-4.7); ABSOLUTE MONOCYTES (AUTO) 0.8 10^3/uL (0.1-1.4); ABSOLUTE NEUT (AUTO) 5.4 10^3/uL (1.7-8.2); BASOPHILS % (AUTO) 0.4 % (0-2); EOSINOPHILS % (AUTO) 0.8 % (0-6); HEMATOCRIT 39.4 % (36.0-47.0); MEAN CORPUSCULAR HEMOGLOBIN 29.9 pg (27.0-33.4); MEAN CORPUSCULAR VOLUME 90 fl (80-97); MONOCYTES % (AUTO) 9.7 % (3-13); PLATELET COUNT 239 10^3/uL (150-450); RED BLOOD COUNT 4.36 10^6/uL (3.72-5.28); RED CELL DISTRIBUTION WIDTH 13.4 % (11.5-14.0); SEGMENTED NEUTROPHILS % (AUTO) 64.1 % (42-78); TOTAL CELLS COUNTED % (AUTO) 100 %; WHITE BLOOD COUNT 8.5 10^3/uL (4.0-10.5)
[2019-07-11 21:46] LABS: ACETAMINOPHEN < 10 ug/mL (10-30); ALBUMIN 4.6 g/dL (3.5-5.0); ALCOHOL < 10 mg/dL (NONE DETECTED); ALKALINE PHOSPHATASE 88 U/L (38-126); ASPARTATE AMINO TRANSFERASE 41 U/L (14-36); BILIRUBIN,DIRECT 0.3 mg/dL (0.0-0.4); BILIRUBIN,TOTAL 0.3 mg/dL (0.2-1.3); BLOOD UREA NITROGEN 11 mg/dL (7-20); CALCIUM 9.5 mg/dL (8.4-10.2); CARBON DIOXIDE 31 mmol/L (22-30); CHLORIDE 107 mmol/L (98-107); GLUCOSE 85 mg/dL (75-110); LITHIUM < 0.2 mEq/L (0.6-1.2); POTASSIUM 3.9 mmol/L (3.6-5.0); SALICYLATE 2.5 mg/dL (2.0-20.0); TOTAL PROTEIN 8.1 g/dL (6.3-8.2)
[2019-07-11 21:53] LABS: ANION GAP 2 (5-19)
--- NOTE | 2019-07-11 23:35 | EKG REPORT ---
SEVERITY:- BORDERLINE ECG - SINUS TACHYCARDIA PROBABLE LEFT ATRIAL ABNORMALITY : Confirmed by: Leanna Harrell 11-Jul-2019 23:34:20
[2019-07-12] MEDS ORDERED: DIAZEPAM INJ 10 MG/2 ML DISP.SYRIN IV ONE (00:41)
[2019-07-12 00:55] LABS: APPEARANCE,URINE SLIGHTLY-CLOUDY; BILIRUBIN,URINE NEGATIVE (NEGATIVE); COLOR,URINE YELLOW; GLUCOSE, URINE NEGATIVE (NEGATIVE); KETONES,URINE NEGATIVE (NEGATIVE); LEUKOCYTE ESTERASE,URINE NEGATIVE (NEGATIVE); NITRITE,URINE NEGATIVE (NEGATIVE); PROTEIN,URINE NEGATIVE (NEGATIVE); URINE SPECIFIC GRAVITY 1.014; UROBILINOGEN,URINE NEGATIVE mg/dL (<2.0)
[2019-07-12 01:19] LABS: URINE AMPHETAMINES SCREEN NEGATIVE; URINE BARBITURATES SCREEN NEGATIVE; URINE BENZODIAZEPINES SCREEN NEGATIVE; URINE COCAINE SCREEN NEGATIVE; URINE MARIJUANA (THC) SCREEN NEGATIVE; URINE METHADONE SCREEN NEGATIVE; URINE PHENCYCLIDINE SCREEN UNCONFIRMED POSITIVE
[2019-07-12] MEDS ORDERED: PROMETHAZINE HCL INJ 25 MG/1 ML VIAL IM ONE (02:55)
[2019-07-12 08:21] VITALS: BP 140/80
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
[2019-07-12] MEDS ORDERED: GABAPENTIN 300 MG CAPSULE PO ONE (13:10)
[2019-07-12] MEDS ORDERED: LITHIUM CARBONATE 300 MG CAPSULE PO ONE (13:10)
[2019-07-12] MEDS ORDERED: CITALOPRAM HYDROBROMIDE 20 MG TABLET PO ONE (13:10)
[2019-07-12] MEDS ORDERED: BUSPIRONE HCL 10 MG TABLET PO ONE (13:10)
--- NOTE | 2019-07-12 13:14 | ER Document Report ---
Doctor's Note Notes: 07/12/19 13:11 We are continuing the patient's home medications including BuSpar, lithium, gabapentin and Celexa. Patient will be not getting her Haldol as we are planning on discharging her before evening and this is a nighttime medication for her. Patient's lithium level was undetectable I believe when I reviewed her laboratory studies. Obviously she is not taking it if it is undetectable. I did speak with the patient and she is quite upset that her outpatient psychiatrist will not give her any "narcotics. When I discussed with her that she is repeatedly asked me for Adderall and all kinds of other stimulant medications she said yes that is what I want and then when I discussed with her that narcotics are down or she stated she did not want any downers but she did want those narcotics that make you feel up. We discussed that when she is asking for controlled substances and uppers not narcotics. 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 Discussed with patient that I do not think it is a good idea to prescribe these types of controlled substances and she will have to continue discussing with her outpatient psychiatrist. Patient is otherwise clear and will be discharged home if we can get in touch with the act team who will take her home today. GENERAL: Alert, interacts well. No acute distress. HEAD: Normocephalic, atraumatic EYES: Pupils equal, round and reactive to light, extraocular movements intact. ENT: Oral mucosa moist, tongue midline. NECK: Full range of motion, supple, trachea midline. LUNGS: no respiratory distress. EXTREMITIES: Moves all 4 extremities spontaneously, no edema. No cyanosis. NEUROLOGICAL: Alert and oriented x3, normal speech. PSYCH: Somewhat intense affect, eyes are wide open, she rarely if ever blinks w hile I am talking to her however she is able to stay on track and follow the conversation aside from fixating somewhat on receiving controlled substances. SKIN: Warm, Dry, normal turgor, no rashes or lesions noted. 07/12/19 14:14 Mother is here, willing to take her home. No longer waiting on the ACT team to arrange a safe discharge plan. Discharged home. IVC is rescinded.
== END 2019-07-12 14:53 | disposition home or self-care (01) ==
LOC: ER 20:38
DX: F25.0 Schizoaffective disorder, bipolar type (principal); F60.3 Borderline personality disorder; F16.20 Hallucinogen dependence, uncomplicated; Z91.14 Patient's other noncompliance with medication regimen; Z86.19 Personal history of other infectious and parasitic diseases
CPT/HCPCS: 93005; 96376; 99285; 96361; 96374; 96375; 36415; 82962; 80307 ×4; 80178; 84703; 85025; 80053; 81001; 93010; J3360; J3490; A9270 ×3; J2060; J2550; J7030

== ENCOUNTER 2019-07-29 21:26 | Emergency (ER) | payer MEDICAID, MEDICARE ==
--- NOTE | 2019-07-29 21:41 | ER Document Report ---
ED Medical Screen (RME) - General Chief Complaint: Laceration Stated Complaint: FELL LACERATION ON RIGHT SIDE OF HEAD Time Seen by Provider: 07/29/19 21:40 Primary Care Provider: HERMAN HAYNES DO [Primary Care Provider] - Follow up as needed Mode of Arrival: Medic Information source: Patient, Emergency Med Personnel Notes: Patient presents emergency department via EMS after she fell and hit the side of her head. Patient has laceration on the right side of her head. EMS reports patient has a history of mental health issues. She is at her current normal mental state per EMS and RN who are familiar with patient. Unsure if tetanus is up-to-date. No active bleeding. 2 cm laceration noted horizontal to the right side of her scalp. I have greeted and performed a rapid initial assessment of this patient. A comprehensive ED assessment and evaluation of the patient, analysis of test results and completion of the medical decision making process will be conducted by additional ED providers. Dictation of this chart was performed using voice recognition software; therefore, there may be some unintended grammatical errors. TRAVEL OUTSIDE OF THE [place] IN LAST 30 DAYS: No - Related Data Allergies/Adverse Reactions: Penicillins Allergy (Verified 02/21/19 20:22) Past Medical History Renal/ Medical History: Denies: Hx Peritoneal Dialysis GI Medical History: Reports: Hx Hepatitis - Hepatitis C, on no treatment. Musculoskeltal Medical History: Reports Hx Musculoskeletal Trauma - Left foot fracture Psychiatric Medical History: Reports: Hx Bipolar Disorder, Hx Depression, Hx Schizoaffective Disorder, Hx Schizophrenia Infectious Medical History: Reports: Hx Hepatitis - Hepatitis C, on no treatment. - Immunizations Hx Diphtheria, Pertussis, Tetanus Vaccination: Yes Physical Exam - Vital signs Vitals: Temp Pulse Resp BP Pulse Ox 98.1 F 96 18 131/65 H 95 07/29/19 21:36 07/29/19 21:36 07/29/19 21:36 07/29/19 21:36 07/29/19 21:36 Course - Vital Signs Vital signs: Temp Pulse Resp BP Pulse Ox 98.1 F 96 18 131/65 H 95 07/29/19 21:36 07/29/19 21:36 07/29/19 21:36 07/29/19 21:36 07/29/19 21:36 Doctor's Discharge - Discharge Referrals: HERMAN HAYNES, [Primary Care Provider] - Follow up as needed
[2019-07-29 23:50] LABS: ABSOLUTE BASOPHILS # (AUTO) 0.1 10^3/uL (0.0-0.2); ABSOLUTE LYMPHOCYTES (AUTO) 1.2 10^3/uL (0.5-4.7); ABSOLUTE MONOCYTES (AUTO) 1.1 10^3/uL (0.1-1.4); ABSOLUTE NEUT (AUTO) 11.9 10^3/uL (1.7-8.2); BASOPHILS % (AUTO) 0.4 % (0-2); HEMATOCRIT 37.4 % (36.0-47.0); HEMOGLOBIN 12.4 g/dL (12.0-15.5); LYMPHOCYTES % (AUTO) 8.4 % (13-45); MEAN CORPUSCULAR HEMOGLOBIN 29.3 pg (27.0-33.4); MEAN CORPUSCULAR HGB CONC 33.1 g/dL (32.0-36.0); MEAN CORPUSCULAR VOLUME 89 fl (80-97); MONOCYTES % (AUTO) 7.7 % (3-13); PLATELET COUNT 259 10^3/uL (150-450); RED BLOOD COUNT 4.22 10^6/uL (3.72-5.28); RED CELL DISTRIBUTION WIDTH 13.7 % (11.5-14.0); SEGMENTED NEUTROPHILS % (AUTO) 83.5 % (42-78); TOTAL CELLS COUNTED % (AUTO) 100 %; WHITE BLOOD COUNT 14.3 10^3/uL (4.0-10.5)
[2019-07-30 00:03] LABS: PARTIAL THROMBOPLASTIN TIME 28.4 SEC (23.5-35.8)
[2019-07-30] MEDS ORDERED: LIDOCAINE 1% INJ (10 MG/ML) 10 ML MDV INJ ONE (00:06)
[2019-07-30 00:16] LABS: ALBUMIN 4.7 g/dL (3.5-5.0); ALKALINE PHOSPHATASE 106 U/L (38-126); ASPARTATE AMINO TRANSFERASE 52 U/L (14-36); BILIRUBIN,DIRECT 0.1 mg/dL (0.0-0.4); BILIRUBIN,TOTAL 0.3 mg/dL (0.2-1.3); BLOOD UREA NITROGEN 12 mg/dL (7-20); CALCIUM 10.3 mg/dL (8.4-10.2); CARBON DIOXIDE 29 mmol/L (22-30); CHLORIDE 114 mmol/L (98-107); POTASSIUM 3.7 mmol/L (3.6-5.0); TOTAL PROTEIN 8.3 g/dL (6.3-8.2)
[2019-07-30 00:17] LABS: INTERNATIONAL RATION (INR) 0.97; PROTHROMBIN TIME 12.9 SEC (11.4-15.4)
--- NOTE | 2019-07-30 00:29 | RADIOLOGY REPORT (SQ) ---
EXAM DESCRIPTION: CT HEAD WITHOUT IV CONTRAST COMPLETED DATE/TME: 07/29/2019 23:30 CLINICAL HISTORY: 29 years, Female, AMS, fall, hit head COMPARISON: Multiple priors, most recent from 05/24/2019 TECHNIQUE: Noncontrast CT of the head was performed. Coronal and sagittal reformations were created. Images stored on PACS. All CT scanners at this facility use dose modulation, iterative reconstruction, and/or weight based dosing when appropriate to reduce radiation dose to as low as reasonably achievable (ALARA). [facility]: Dose Right [facility]: CareDose [facility]: Dose Right [facility]: Teradose 4D [facility]: Vyclone LIMITATIONS: None. FINDINGS: Brain parenchyma is normal in attenuation. No acute intracranial hemorrhage, mass effect, or extra-axial fluid is seen. The ventricles, sulci, and basilar cisterns are normal in size and configuration. Globes and orbits are normal. Paranasal sinuses and mastoid air cells are clear. There are no depressed skull fractures. Partially imaged are postoperative changes about the C1 vertebral body, particularly with bilateral transpedicle screws. However, the right transpedicular screw appears fractured about its midportion, best visualized on image one of series 3. The nasal septum is mildly deviated towards the right. IMPRESSION: No acute intracranial hemorrhage or mass effect. Partially imaged postsurgical changes about the C1 vertebral body, specifically with bilateral transpedicle screws at this location. However, the right transpedicle screw appears fractured about its midportion, best visualized in image 1 of series 3, indicating hardware failure. TECHNICAL DOCUMENTATION: Quality ID # 436: Final reports with documentation of one or more dose reduction techniques (e.g., Automated exposure control, adjustment of the mA and/or kV according to patient size, use of iterative reconstruction technique) copyright 2010 [employer]- All Rights Reserved
[2019-07-30 00:45] LABS: ANION GAP -2 (5-19); GLUCOSE 48 mg/dL (75-110)
--- NOTE | 2019-07-30 00:56 | RADIOLOGY REPORT (SQ) ---
EXAM DESCRIPTION: CT CERVICAL SPINE WITHOUT IV CONTRAST COMPLETED DATE/TME: 07/30/2019 00:06 CLINICAL HISTORY: 29 years, Female, fall, h/o fx, neck pain COMPARISON: 11/11/2018 CT TECHNIQUE: 251 Images stored on PACS. All CT scanners at this facility use dose modulation, iterative reconstruction, and/or weight based dosing when appropriate to reduce radiation dose to as low as reasonably achievable (ALARA). [facility]: Dose Right [facility]: CareDose [facility]: Dose Right [facility]: Teradose 4D [facility]: [employer] LIMITATIONS: None. FINDINGS: Slight reversal of the normal cervical lordosis consistent with muscle spasm/strain. Posterior fixation rods and screws extending from the C2 to the C4 levels. Evaluation of spinal canal contents limited due to CT technique. However, vertebral body height is preserved. Equivocal anterolisthesis of C2 on C3, similar to the prior. However, no CT evidence for acute fracture or subluxation. IMPRESSION: Postsurgical changes with posterior fixation as above. No CT evidence for acute C-spine abnormality TECHNICAL DOCUMENTATION: Quality ID # 436: Final reports with documentation of one or more dose reduction techniques (e.g., Automated exposure control, adjustment of the mA and/or kV according to patient size, use of iterative reconstruction technique) copyright 2011 [employer]- All Rights Reserved
--- NOTE | 2019-07-30 01:20 | ER Document Report ---
ED General - General Chief Complaint: Laceration Stated Complaint: FELL LACERATION ON RIGHT SIDE OF HEAD Time Seen by Provider: 07/29/19 21:40 Primary Care Provider: HERMAN HAYNES DO [Primary Care Provider] - Follow up as needed Mode of Arrival: Medic Notes: 29-year-old female presents emergency department complaining of a fall in the bathroom at home during which she hit the right side of her head on a piece of furniture and sustained a cut to the right side of her head. Denies any loss of consciousness, does complain of pain to her neck and admits a history of prior cervical spine fracture. States the pain in her neck is slightly worse than before. Denies any numbness or tingling, denies any weakness, denies any blood thinners. States her vaccines are up-to-date including her tetanus vaccination within the last 10 years. Admits that prior to falling she was drinking dextromethorphan containing cough syrup in order to get high. States that she is very proud of herself that she is no longer drinking her own urine. TRAVEL OUTSIDE OF THE [place] IN LAST 30 DAYS: No - Related Data Allergies/Adverse Reactions: Penicillins Allergy (Verified 02/21/19 20:22) Past Medical History - General Information source: Patient, Emergency Med Personnel - Social History Smoking Status: Never Smoker Chew tobacco use (# tins/day): No Frequency of alcohol use: None Drug Abuse: Other - Dextromethorphan Family History: Reviewed & Not Pertinent Patient has suicidal ideation: No Patient has homicidal ideation: No Renal/ Medical History: Denies: Hx Peritoneal Dialysis GI Medical History: Reports: Hx Hepatitis - Hepatitis C, on no treatment. Musculoskeletal Medical History: Reports Hx Musculoskeletal Trauma - Left foot fracture Psychiatric Medical History: Reports: Hx Bipolar Disorder, Hx Depression, Hx Schizoaffective Disorder, Hx Schizophrenia Infectious Medical History: Reports: Hx Hepatitis - Hepatitis C, on no treatmen t. - Immunizations Hx Diphtheria, Pertussis, Tetanus Vaccination: Yes Review of Systems - Review of Systems Constitutional: No symptoms reported EENT: No symptoms reported Cardiovascular: No symptoms reported Musculoskeletal: See HPI Skin: See HPI -: Yes All other systems reviewed and negative Physical Exam - Vital signs Vitals: Temp Pulse Resp BP Pulse Ox 98.1 F 96 18 131/65 H 95 07/29/19 21:36 07/29/19 21:36 07/29/19 21:36 07/29/19 21:36 07/29/19 21:36 Interpretation: Normal - Notes Notes: GENERAL: Alert, No acute distress. HEAD: Normocephalic, 5 cm linear laceration above the right ear, no step-offs, deformities. EYES: Pupils equal, round and reactive to light, extraocular movements intact. ENT: Oral mucosa moist, tongue midline. Nares patent, no nasal septal hematoma, TMs intact. NECK: Full range of motion, supple, trachea midline. No tenderness to palpation in the midline posteriorly however there is a slight step-off and prior surgical scarring. LUNGS: Clear to auscultation bilaterally, no wheezes, rales or rhonchi, no respiratory distress. HEART: Regular rate and rhythm, no murmurs, gallops, rubs. ABDOMEN: Soft, nontender, nondistended, bowel sounds present in all 4 quadrants. EXTREMITIES: Moves all 4 extremities spontaneously, no edema, radial and dorsalis pedis pulses 2/4 bilaterally. No cyanosis. NEUROLOGICAL: Alert and oriented x3, cranial nerves II through XII grossly intact, biceps and patellar DTRs 2+ bilaterally. PSYCH: Very wide eyes, somewhat slow speech, no slurring, this is consistent with prior presentations per nursing staff who have interacted with her in the past. SKIN: Warm, Dry, normal turgor, 5 cm laceration to right side of scalp. Course - Re-evaluation Re-evalutation: 07/30/19 01:20 CT scan of head and neck do not show any acute process, there are postsurgical changes that are unchanged from the past in the cervical spine, CBC shows leukocytosis of 14.3, coags normal, CMP shows low glucose at 48, no evidence of other metabolic derangement from possibly drinking her own urine in the past. Laceration will be repaired with george. Patient will be discharged home. - Vital Signs Vital signs: Temp Pulse Resp BP Pulse Ox 98.1 F 96 18 131/65 H 95 07/29/19 21:36 07/29/19 21:36 07/29/19 21:36 07/29/19 21:36 07/29/19 21:36 - Laboratory Result Diagrams: 07/29/19 23:40 07/29/19 23:40 Laboratory results interpreted by me: 07/29/19 07/29/19 23:40 23:40 WBC 14.3 H Lymph % (Auto) 8.4 L Absolute Neuts (auto) 11.9 H Seg Neutrophils % 83.5 H Chloride 114 H Anion Gap -2 L Glucose 48 L Calcium 10.3 H AST 52 H Total Protein 8.3 H Procedures - Laceration/Wound Repair Right Upper Head Wound length (cm): 5 Wound's Depth, Shape: Linear Laceration pre-procedure: Sterile PPE donned, Sterile drapes applied, Shur-Clens applied Anesthetic type: 1% Lidocaine Volume Anesthetic (mLs): 5 Wound explored: Clean, No foreign body removed Wound Repaired With: George Number of Sutures: 11 Layer Closure?: No Post-procedure NV exam normal: Yes Complications: No Discharge - Discharge Clinical Impression: Scalp laceration Qualifiers: Encounter type: initial encounter Qualified Code(s): S01.01XA - Laceration without foreign body of scalp, initial encounter Condition: Stable Disposition: HOME, SELF-CARE Additional Instructions: Care of Stapled Wounds Your laceration has been stapled to keep the skin edges aligned during healing. The time of staple removal depends on the nature and location of your cut. Please follow the care instructions the doctor has outlined for you and return for further care, according to the schedule you've been given. A special instrument is needed to remove george without injuring your skin further, so don't try to take the george out yourself. Keep the wound and dressing clean. Unless you were told otherwise, you may shower daily, blotting the wound dry with a clean, unused towel. At other times, If the dressing gets wet or blood soaked, remove it and blot the wound dry, then reapply a new dressing. Unless you were instructed otherwise, dressings should be changed at least daily. If any signs of infection occur (swelling, redness, increasing tenderness, red streaks, tender lumps in the armpit or groin above the laceration, or fever), see the doctor immediately. Please return to have the george removed in 5 to 7 days. Referrals: HERMAN HAYNES, [Primary Care Provider] - Follow up as needed
[2019-07-30 02:14] VITALS: BP 136/91
== END 2019-07-30 02:19 | disposition home or self-care (01) ==
LOC: ER 21:26
DX: S01.01XA Laceration without foreign body of scalp, initial encounter (principal); M54.2 Cervicalgia; W19.XXXA Unspecified fall, initial encounter; Y92.002 Bathroom of unspecified non-institutional (private) residence as the place of occurrence of the external cause; W22.03XA Walked into furniture, initial encounter; F19.10 Other psychoactive substance abuse, uncomplicated; D72.829 Elevated white blood cell count, unspecified; Z88.0 Allergy status to penicillin
CPT/HCPCS: 36415; 70450; 72125; 80053; 85025; 85610; 85730; 99283

== ENCOUNTER 2019-08-04 09:53 | Emergency (ER) | payer MEDICARE ==
--- NOTE | 2019-08-04 10:10 | ER Document Report ---
ED Suture/Wound Recheck - General Chief Complaint: Suture Removal Stated Complaint: SUTURE REMOVAL Time Seen by Provider: 08/04/19 10:04 Primary Care Provider: HERMAN HAYNES DO [Primary Care Provider] - Follow up as needed Mode of Arrival: Ambulatory Information source: Patient, Relative - mother TRAVEL OUTSIDE OF THE [place] IN LAST 30 DAYS: No - HPI Treated in ED (days ago): 6 Previous ED treatment: Laceration repair Antibiotic given: no Quality of pain: No pain Severity: None Pain Level: Denies Context: Injury Symptoms since procedure: No complaints Exacerbated by: Denies Relieved by: Denies Notes: 29 yr old female pt, with the listed pmh, here to have the george removed from the right side of her head. she was seen here 6 days ago after she fell and hit her head and had a neg head and neck ct then and had 11 george placed. no fevers, drainage, seizures, bleeding, das, dizziness, swelling, pain, or new trauma/injury. denies any complications or any other complaints. - Related Data Allergies/Adverse Reactions: Penicillins Allergy (Verified 02/21/19 20:22) Past Medical History - General Information source: Patient, Parent - mom, [facility] Records - Social History Smoking Status: Unknown if Ever Smoked Frequency of alcohol use: None Drug Abuse: None Lives with: Alone Family History: Reviewed & Not Pertinent Patient has suicidal ideation: No Patient has homicidal ideation: No Endocrine Medical History: Denies: Hx Diabetes Mellitus Type 1, Hx Diabetes Mellitus Type 2 Renal/ Medical History: Denies: Hx Peritoneal Dialysis GI Medical History: Reports: Hx Hepatitis - Hepatitis C, on no treatment. Musculoskeletal Medical History: Reports Hx Musculoskeletal Trauma - Left foot fracture Psychiatric Medical History: Reports: Hx Bipolar Disorder, Hx Depression, Hx Schizoaffective Disorder, Hx Schizophrenia Infectious Medical History: Reports: Hx Hepatitis - Hepatitis C, on no treatment. - Immunizations Hx Diphtheria, Pertussis, Tetanus Vaccination: Yes Review of Systems - Review of Systems -: Yes All other systems reviewed and negative Physical Exam - Vital signs Vitals: Temp Pulse Resp BP Pulse Ox 98.1 F 96 16 144/97 H 100 08/04/19 10:03 08/04/19 10:03 08/04/19 10:03 08/04/19 10:03 08/04/19 10:03 Temp Pulse Resp BP Pulse Ox 09/27/19 10:03 98.1 F 96 16 144/97 H 100 Notes: GENERAL_APPEARANCE: well_nourished, alert, cooperative, no obvious discomfort. Pleasant, young bizarre white female, pleasant, smiling, speaking in full sentences, in no sign of pain or resp distress, easily sitting up. mother at bedside VITALS: reviewed, see vital signs table. HEAD: approx 5cm superficial linear laceration on the right parietal region of the head that is healing nicely. some dried blood, no sign of cellulitis or dehiscence. 11 intact george. no ttp. no crepitation. no fluctuation, drainage, erythema, or streaking. incision is c/d/i. otherwise normocephalic and atraumatic, no raccoon eyes, no wilkes signs. no swelling or ttp. EYES: EOMI without pain, conjunctiva_clear. PERRL, eyelids wnl. no drainage. MOUTH: no_lacerations inside_mouth. no broken teeth. pharynx wnl. tongue protrudes midline. no drooling, tripoding, voice change, or stridor, no tongue or lip swelling. NOSE: no drainage or epistaxis NECK: no_swelling\tenderness on the neck. full rom. full strength. no meningeal signs. no sign of central cord syndrome. HEART: normal_rate, normal_rhythm, LUNGS: ctab. no chest wall ttp. no overlying skin changes. no flail chest or crepitation. BACK: no midline bony tenderness. no step offs or deformities RECTAL: deferred, however, no sign of loss of bowel or bladder or soiling of clothing. EXTREMITIES: strength 5/5 in all_extremities, good pulses all_extremities, no_abrasions\lacerations in the extremities, no_swelling\tenderness in the extremities. full rom. normal gait. good hand pan helper. brisk cap refill. no shortening or rotation of the limbs or other signs of deformities unless otherwise noted. SKIN: warm, dry, good_color. no other grossly visible overlying skin changes or signs of trauma unless otherwise noted. NEURO: motor_intact, sensory_intact. GLASCOW_COMA_SCORE: (adult) - eyes_open_spontaneously_4, verbal_converses_and_oriented_5, motor_obeys_commands_6, glasgow_coma_total_15, MENTAL_STATUS: speech_clear, oriented_X_3, responds_appropriately to questions. somewhat bizarre affect but that appears to be her baseline per review of old visits. mother at bedside attests she is at her baseline. Course - Re-evaluation Re-evalutation: 08/04/19 10:33 Pt here for staple removal to the right side of her head that she had placed 6 days ago. denies any complaints or complications. her tdap is utd. i did remove the george with the sterile staple remover from the staple removal kit and removed all 11 george that were initially placed completely intact without complication on the first try. pt consented to procedure. procedure without incident. See procedure note. There was no sign of dehiscence or compromise. No sign of cellulitis. The incision is well-healing. Advised wound care. Tylenol as needed for any pain if not allergic. advised to f/u with pcp in 1-2 days. return for any worsening symptoms. vss. well appearing. satting well on ra. neurononfocal. pt understands and agrees to plan. On reexam, pt remained stable. nontoxic. well appearing. Documentation achieved through voice recording which may lead to some occasional accidental typographical errors. Extensive efforts have been made to proof read documentation to make sure these are the least as possible. 08/04/19 10:42 Category Date Time Status Staple Removal (ED) NOW Care 08/04/19 10:25 Ordered - Vital Signs Vital signs: Temp Pulse Resp BP Pulse Ox 98.1 F 96 16 144/97 H 100 08/04/19 10:03 08/04/19 10:03 08/04/19 10:03 08/04/19 10:03 08/04/19 10:03 Procedures - Laceration/Wound Repair Right Head Time completed: 10:25 Wound length (cm): 5 Wound's Depth, Shape: Superficial, Linear Post-procedure NV exam normal: Yes Complications: No Notes: 08/04/19 10:39 STAPLE REMOVAL PROCEDURE: Pt consented to procedure. Procedure without incident. Pt tolerated procedure well. Standard usual technique applied. Staple removal- A ll 11 george were removed completely intact on the first try by me with the sterile staple remover from the staple removal kit. wound(s) showed no FB. wound edges remained well approximated. no sign of dehiscence or cellulitis. no bleeding or drainage. Discharge - Discharge Clinical Impression: Encounter for removal of george Scalp laceration Qualifiers: Encounter type: subsequent encounter Qualified Code(s): S01.01XD - Laceration without foreign body of scalp, subsequent encounter Condition: Good Disposition: HOME, SELF-CARE Instructions: Laceration Care ([facility]) Additional Instructions: Follow-up with PCP in 1 to 2 days. Return for any worsening symptoms. tylenol as needed for any pain or fever if not allergic. wound care as discussed. Referrals: HERMAN HAYNES, [Primary Care Provider] - Follow up as needed
[2019-08-04 10:14] VITALS: BP 144/97
== END 2019-08-04 10:33 | disposition home or self-care (01) ==
LOC: ER 09:53
DX: S01.01XD Laceration without foreign body of scalp, subsequent encounter (principal); W19.XXXD Unspecified fall, subsequent encounter; Z86.19 Personal history of other infectious and parasitic diseases

== ENCOUNTER 2020-01-03 02:42 | Emergency (ER) | payer MEDICARE, MEDICAID ==
--- NOTE | 2020-01-03 03:17 | ER Document Report ---
ED Substance Abuse / Acc. OD - General Chief Complaint: Accidental Overdose Stated Complaint: POSSIBLE OVERDOSE Time Seen by Provider: 01/03/20 03:04 Primary Care Provider: HERMAN HAYNES DO [Primary Care Provider] - Follow up as needed Notes: Patient is a 29-year-old female with a history of schizophrenia that comes emergency department for chief complaint of intentional overdose. Patient states she has been taking "cough medicine" for the past 1.5 days, she states she is taking 3 boxes of 16 tablets of cough and cold which includes dextromethorphan (30 mg) and chlorpheniramine maleate (4 mg). She states she thinks it is "starting to mess with my brain". She states that she called the suicide hotline [facility] because she wanted to talk to them, she states she wanted to tell them that Edd Youssef is not racist. She states she is not on any medications for schizophrenia. She denies any physical symptoms including headache, nausea, chest pain, vomiting, fever, shortness of breath, abdominal pain. She denies . She denies being sexually active. TRAVEL OUTSIDE OF THE [place] IN LAST 30 DAYS: No - Related Data Allergies/Adverse Reactions: Penicillins Allergy (Verified 02/21/19 20:22) Past Medical History - General Information source: Patient - Social History Smoking Status: Never Smoker Frequency of alcohol use: None Drug Abuse: Other - [id number] medications Lives with: Parents Family History: Reviewed & Not Pertinent Endocrine Medical History: Denies: Hx Diabetes Mellitus Type 1, Hx Diabetes Mellitus Type 2 Renal/ Medical History: Denies: Hx Peritoneal Dialysis GI Medical History: Reports: Hx Hepatitis - Hepatitis C, on no treatment. Musculoskeletal Medical History: Reports Hx Musculoskeletal Trauma - Left foot fracture Psychiatric Medical History: Reports: Hx Bipolar Disorder, Hx Depression, Hx Schizoaffective Disorder, Hx Schizophrenia Infectious Medical History: Reports: Hx Hepatitis - Hepatitis C, on no treatment. Surgical Hx: Negative - Immunizations Hx Diphtheria, Pertussis, Tetanus Vaccination: Yes Review of Systems - Review of Systems Constitutional: No symptoms reported EENT: No symptoms reported Cardiovascular: No symptoms reported Respiratory: No symptoms reported Gastrointestinal: No symptoms reported Genitourinary: No symptoms reported Female Genitourinary: No symptoms reported Musculoskeletal: No symptoms reported Skin: No symptoms reported Hematologic/Lymphatic: No symptoms reported Neurological/Psychological: See HPI Physical Exam - Vital signs Vitals: Resp Pulse Ox 23 H 98 01/03/20 03:22 01/03/20 03:22 - Notes Notes: GENERAL: Alert, interacts well. Slightly restless HEAD: Normocephalic, atraumatic. EYES: Pupils equal, round, dilated, and reactive to light. Extraocular movements intact. ENT: Oral mucosa moist, tongue midline. Oropharynx unremarkable. Airway patent. LUNGS: Clear to auscultation bilaterally, no wheezes, rales, or rhonchi. No respiratory distress. HEART: Regular rate and rhythm. No murmur ABDOMEN: Soft, non-tender. Non-distended. Bowel sounds present in all 4 quadrants. GENITOURINARY: Deferred EXTREMITIES: Moves all 4 extremities spontaneously. No edema, normal radial and dorsalis pedis pulses bilaterally. No cyanosis. Patient complains of pain with palpation over the left ankle, nonspecific otherwise with no concerning findings. BACK: no cervical, thoracic, lumbar midline tenderness. No saddle anesthesia, normal distal neurovascular exam. Moves all extremities in full range of motion. NEUROLOGICAL: Alert and oriented x3. Normal speech. Cranial nerves II through XI I grossly intact. PSYCH: Continue stream of consciousness, tangential speech, at times nonsensical. Makes good eye contact. Slightly restless SKIN: Warm, dry, normal turgor. No rashes or lesions noted. Course - Re-evaluation Re-evalutation: Patient has dilated pupils, she is borderline tachycardic, she has slight restlessness and a broken thought process, she has difficulty giving me a clear history. Suspect accommodation of dextromethorphan side effects and schizophrenia off her medications. Reportedly patient was previously on BuSpar, Haldol, lithium, lithium level will be added to her work-up. 01/03/20 03:27 Spoke with poison control because of patient's ingestion of 48 tablets of 4 mg chlorpheniramine and 30 mg dextromethorphan. This apparently was since last night (01/02/2020). The recommendation is 6 to 8 hours of monitoring until medically cleared, IV fluids and benzodiazepines for tachycardia and agitation check for alcohol, liver function tests, EKG changes. Afterwards patient can be medically cleared. CBC nonspecific, chemistry nonspecific, EKG unremarkable, urine drug screen shows PCP and opiates. Patient does not have explanation for the opiates, I suspect PCP is a false positive because of the dextromethorphan. [place] negative. Alcohol negative. Patient's tachycardia resolved after IV fluids and Ativan. Ankle x-ray negative. Patient remains well-appearing on monitoring. She will complete monitoring to be medically cleared, she is also pending psychiatric evaluation. Patient is very pleasant, cooperative. Patient has been discussed with Dr. Spencer. - Vital Signs Vital signs: Temp Pulse Resp BP Pulse Ox 98.9 F 25 H 127/71 H 98 01/03/20 03:24 01/03/20 07:01 01/03/20 07:01 01/03/20 07:01 - Laboratory Result Diagrams: 01/03/20 02:31 01/03/20 02:31 Laboratory results interpreted by me: 01/03/20 01/03/20 02:31 02:31 RDW 14.5 H Chloride 110 H Anion Gap 2 L BUN 23 H Glucose 183 H Total Bilirubin 0.1 L Salicylates < 1.0 L Acetaminophen < 10 L [place] < 0.2 L - EKG Interpretation by Me Additional EKG results interpreted by me: EKG sinus tachycardia at a rate of 102, QTC of 428, no T wave inversions or ST segment changes in consecutive leads, QTC of 428. Some artifact is present. Discharge - Discharge Clinical Impression: Drug abuse Schizophrenia Qualifiers: Schizophrenia type: unspecified Qualified Code(s): F20.9 - Schizophrenia, unspecified Condition: Stable Disposition: PSYCH HOSP/UNIT Referrals: HERMAN HAYNES, [Primary Care Provider] - Follow up as needed
[2020-01-03] MEDS ORDERED: NORMAL SALINE 1000 ML 1,000 ML IV ONE (03:18)
[2020-01-03] MEDS ORDERED: LORAZEPAM INJ 2 MG/1 ML VIAL IV ONE (03:26)
[2020-01-03 03:41] LABS: ALBUMIN 4.3 g/dL (3.5-5.0); ALKALINE PHOSPHATASE 97 U/L (38-126); ASPARTATE AMINO TRANSFERASE 25 U/L (14-36); BILIRUBIN,TOTAL 0.1 mg/dL (0.2-1.3); BLOOD UREA NITROGEN 23 mg/dL (7-20); CALCIUM 9.8 mg/dL (8.4-10.2); GLUCOSE 183 mg/dL (75-110); POTASSIUM 4.5 mmol/L (3.6-5.0)
[2020-01-03 03:45] LABS: CHLORIDE 110 mmol/L (98-107)
[2020-01-03 03:52] LABS: ACETAMINOPHEN < 10 ug/mL (10-30); ALCOHOL < 10 mg/dL (NONE DETECTED); ANION GAP 2 (5-19); CARBON DIOXIDE 28 mmol/L (22-30); LITHIUM < 0.2 mEq/L (0.6-1.2); SALICYLATE < 1.0 mg/dL (2.0-20.0)
[2020-01-03 03:56] LABS: ABSOLUTE EOSINOPHILS # (AUTO) 0.1 10^3/uL (0.0-0.6); ABSOLUTE LYMPHOCYTES (AUTO) 2.5 10^3/uL (0.5-4.7); ABSOLUTE MONOCYTES (AUTO) 0.6 10^3/uL (0.1-1.4); ABSOLUTE NEUT (AUTO) 3.5 10^3/uL (1.7-8.2); BASOPHILS % (AUTO) 0.6 % (0-2); EOSINOPHILS % (AUTO) 1.5 % (0-6); HEMATOCRIT 39.3 % (36.0-47.0); HEMOGLOBIN 13.2 g/dL (12.0-15.5); LYMPHOCYTES % (AUTO) 36.7 % (13-45); MEAN CORPUSCULAR HEMOGLOBIN 30.2 pg (27.0-33.4); MEAN CORPUSCULAR HGB CONC 33.5 g/dL (32.0-36.0); MEAN CORPUSCULAR VOLUME 90 fl (80-97); MONOCYTES % (AUTO) 9.1 % (3-13); PLATELET COUNT 256 10^3/uL (150-450); RED BLOOD COUNT 4.36 10^6/uL (3.72-5.28); RED CELL DISTRIBUTION WIDTH 14.5 % (11.5-14.0); SEGMENTED NEUTROPHILS % (AUTO) 52.1 % (42-78); TOTAL CELLS COUNTED % (AUTO) 100 %; WHITE BLOOD COUNT 6.8 10^3/uL (4.0-10.5)
--- NOTE | 2020-01-03 04:38 | RADIOLOGY REPORT (SQ) ---
Left ankle three view on 01/03/2020 at 4:21 AM CLINICAL INDICATION: Twisting injury, swelling, lateral ankle pain COMPARISON: None FINDINGS: There is a partially imaged likely old fifth metatarsal fracture but if the patient has any pain at this location would recommend dedicated foot imaging. The ankle mortise is intact. No acute fracture is noted in the ankle. Visualized joints are well aligned. IMPRESSION: No acute abnormality in the ankle.
[2020-01-03 06:09] LABS: APPEARANCE,URINE CLOUDY; BILIRUBIN,URINE NEGATIVE (NEGATIVE); COLOR,URINE YELLOW; GLUCOSE, URINE NEGATIVE (NEGATIVE); KETONES,URINE NEGATIVE (NEGATIVE); LEUKOCYTE ESTERASE,URINE NEGATIVE (NEGATIVE); NITRITE,URINE NEGATIVE (NEGATIVE); PROTEIN,URINE NEGATIVE (NEGATIVE); URINE SPECIFIC GRAVITY 1.013; UROBILINOGEN,URINE NEGATIVE mg/dL (<2.0)
[2020-01-03 06:15] LABS: URINE AMPHETAMINES SCREEN NEGATIVE; URINE BARBITURATES SCREEN NEGATIVE; URINE BENZODIAZEPINES SCREEN NEGATIVE; URINE COCAINE SCREEN NEGATIVE; URINE MARIJUANA (THC) SCREEN NEGATIVE; URINE METHADONE SCREEN NEGATIVE
[2020-01-03 06:16] LABS: URINE PHENCYCLIDINE SCREEN UNCONFIRMED POSITIVE
[2020-01-03 10:28] VITALS: BP 122/70
--- NOTE | 2020-01-03 16:52 | PSYCHOLOGICAL NOTE ---
Psych Note - Psych Note Date seen by psych provider: 01/03/20 Time seen by psych provider: 08:10 Psych Note: reason for Consult: Psychosis Patient discloses that she called the crisis line because she wanted to thank them for all the services they have done for her and others. She confirms she has been using cough suppressant medication and states she uses this because of her pain and anxiety. She reports that she has no intention of stopping because it is illegal to use cough medication so no one can tell her to stop using it. Patient denies any thoughts of wanting to harm herself and reports that she feels that she has been doing well. She disclosed that when she disclosed told staff how much cough suppressant she took they were concerned that she may have accidentally overdosed so they have been watching her to make sure she was okay. Patient is alert and orientated to person, place, time and circumstance. Mood is currently euthymic with expressive affect (ie opening eyes wide and prolonged staring). Patient denies suicidal and homicidal ideation reports she called the crisis line to thank them for what they do. Eye contact was intense but is typical for this patient. Conversational speech is slow and halting. Intellectual abilities appear to be within average range. Attention and concentration are fair. Insight, judgment, impulse control are historically poor. 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 Patient has a long history of substance abuse and noncompliance on her psychiatric medications. This patient is well-known to clinician; patient's baseline for conversational speech is slightly pressured and patient tends to be very labile with her emotions. Patient denies suicidal and homicidal ideation. Patient makes comments indicating low self esteem (ie. "people don't think I deserve to be alive...they think I am not worth it) which is a chronic issue for this patient. Patient is established with [facility] for higher level outpatient services and they confirm they will meet with the patient today at home. Patient is recommended to continue working with her outpatient mental health [facility], was highly encourage to abstain from using cold and cough medication and to take her prescribed medications as directed. Dr. Adamson was consulted and the care management this patient; attending physician is in agreement with recommendations and disposition.
--- NOTE | 2020-01-03 18:24 | EKG REPORT ---
SEVERITY:- OTHERWISE NORMAL ECG - SINUS TACHYCARDIA : Confirmed by: Amelia Paige MD 03-Jan-2020 18:23:27
== END 2020-01-03 10:28 | disposition home or self-care (01) ==
LOC: ER 02:42
DX: F19.10 Other psychoactive substance abuse, uncomplicated (principal); F20.9 Schizophrenia, unspecified; T48.4X2A Poisoning by expectorants, intentional self-harm, initial encounter; X58.XXXA Exposure to other specified factors, initial encounter
CPT/HCPCS: 93005; 99285; 96361; 96374; 36415; 80307 ×4; 80178; 84703; 85025; 80053; 81001; 73610; 93010; J2060; J7030

== ENCOUNTER 2020-02-16 22:44 | Emergency (ER) | payer MEDICARE, MEDICAID ==
[2020-02-16] MEDS ORDERED: NORMAL SALINE 1000 ML 1,000 ML IV ONE (23:27)
[2020-02-16 23:33] LABS: ABSOLUTE MONOCYTES (AUTO) 0.8 10^3/uL (0.1-1.4); ABSOLUTE NEUT (AUTO) 9.9 10^3/uL (1.7-8.2); BASOPHILS % (AUTO) 0.2 % (0-2); HEMATOCRIT 37.1 % (36.0-47.0); HEMOGLOBIN 12.4 g/dL (12.0-15.5); LYMPHOCYTES % (AUTO) 8.2 % (13-45); MEAN CORPUSCULAR HEMOGLOBIN 29.9 pg (27.0-33.4); MEAN CORPUSCULAR HGB CONC 33.5 g/dL (32.0-36.0); MEAN CORPUSCULAR VOLUME 89 fl (80-97); MONOCYTES % (AUTO) 6.8 % (3-13); PLATELET COUNT 213 10^3/uL (150-450); RED BLOOD COUNT 4.16 10^6/uL (3.72-5.28); RED CELL DISTRIBUTION WIDTH 14.6 % (11.5-14.0); SEGMENTED NEUTROPHILS % (AUTO) 84.8 % (42-78); TOTAL CELLS COUNTED % (AUTO) 100 %; WHITE BLOOD COUNT 11.7 10^3/uL (4.0-10.5)
--- NOTE | 2020-02-16 23:35 | ER Document Report ---
ED Substance Abuse / Acc. OD - General Chief Complaint: Overdose Stated Complaint: POSSIBLE OVERDOSE Time Seen by Provider: 02/16/20 22:49 Primary Care Provider: HERMAN HAYNES DO [Primary Care Provider] - Follow up as needed Notes: Patient is a 29 year old female who presents to the ED with cough medication a buse. She states that she has been taking coricidin cough medication. She state she took 5 boxes. She has history of taking this in the past. Denies any suicidal or homicidal ideation. She states that she is currently on her menstrual cycle and she is having some cramping. Patient states, "my mom is practicing social distancing and is wanting to keep me away from her." Patient denies any vomiting. TRAVEL OUTSIDE OF THE [place] IN LAST 30 DAYS: No - Related Data Allergies/Adverse Reactions: Penicillins Allergy (Verified 02/21/19 20:22) Past Medical History - Social History Smoking Status: Current Every Day Smoker Chew tobacco use (# tins/day): No Frequency of alcohol use: None Drug Abuse: None Family History: Reviewed & Not Pertinent Patient has suicidal ideation: No Patient has homicidal ideation: No Endocrine Medical History: Denies: Hx Diabetes Mellitus Type 1, Hx Diabetes Mellitus Type 2 Renal/ Medical History: Denies: Hx Peritoneal Dialysis GI Medical History: Reports: Hx Hepatitis - Hepatitis C, on no treatment. Musculoskeletal Medical History: Reports Hx Musculoskeletal Trauma - Left foot fracture Psychiatric Medical History: Reports: Hx Bipolar Disorder, Hx Depression, Hx Schizoaffective Disorder, Hx Schizophrenia Infectious Medical History: Reports: Hx Hepatitis - Hepatitis C, on no treatment. - Immunizations Hx Diphtheria, Pertussis, Tetanus Vaccination: Yes Review of Systems - Review of Systems Notes: REVIEW OF SYSTEMS: CONSTITUTIONAL : Denies recent illness. Denies recent unintentional weight loss. Denies fever, chills, or sweats. EENT: Denies eye, ear, throat, or mouth pain, discharge, or symptoms. Denies nasal or sinus congestion. CARDIOVASCULAR: Denies chest pain. RESPIRATORY: Denies shortness of breath, cough, congestion, difficulty breathing, or wheezing. GASTROINTESTINAL: Denies nausea, vomiting, and diarrhea. Denies abdominal pain. Denies constipation. GENITOURINARY: Denies difficulty urinating, burning, blood in urine, urgency or frequency. MUSCULOSKELETAL: Denies neck and back pain. Denies joint pain or swelling. SKIN: Denies rash, itchiness, or lesions HEMATOLOGIC : Denies easy bruising or bleeding. LYMPHATIC: Denies swollen, painful, enlarged glands. NEUROLOGICAL: Denies no numbness or tingling denies weakness. Denies headache. Denies altered mental status. Denies alteration in speech. PSYCHIATRIC: See HPI. All other systems reviewed and negative. Physical Exam - Vital signs Vitals: Resp 17 02/16/20 22:46 - Notes Notes: PHYSICAL EXAMINATION: GENERAL: Appears well, healthy, well-nourished, no acute distress. HEAD: Normocephalic, atraumatic. EYES: PERRL, conjunctiva normal, all extraocular movements intact, sclera nonicteric ENT: Dry mucous membranes. NECK: Supple, no noticeable swelling, redness, rash. Normal range of motion. LUNGS: Equal breath sounds bilaterally and clear to auscultation. No wheezes rales or rhonchi. CARDIOVASCULAR: S1-S2, tachycardic, regular rhythm. Radial pulses 2+, normal. ABDOMEN: Normoactive bowel sounds. Soft, nontender, no guarding, no rebound tenderness, and no masses palpated. EXTREMITIES: Normal strength and range of motion, no pitting or edema. No cyanosis. NEUROLOGICAL: Moves all extremities upon command. Strength 5/5 in all extremities. PSYCH: Acutely psychotic. SKIN: Warm, dry. No rash, lesions, ulcerations noted. Normal skin turgor. Course - Re-evaluation Re-evalutation: 02/16/20 23:55 Patient started to yell because she wanted water. Water was given. Patient stopped yelling. Haldol ordered if patient continues to yell. 02/17/20 04:18 Patient's hematology shows a leukocytosis of 11,700., Which is most likely nonspecific. hCG is negative and chemistries are also normal. Urinalysis shows a large amount of blood, but patient states that she is currently on her menstrual cycle. Salicylates, acetaminophen, and alcohol are all negative. Patient is positive for opiates and phencyclidine. At this time, the patient is not tachycardic anymore. She is stable for mental health evaluation by Dr. Adamson and the mental health staff. Patient has been monitored for 6 hours, as per poison control recommendation. Patient placed on a 24-hour hold. - Vital Signs Vital signs: Temp Pulse Resp BP Pulse Ox 97.7 F 78 12 126/66 H 96 02/17/20 04:55 02/17/20 04:55 02/17/20 04:55 02/17/20 04:55 02/17/20 04:55 - Laboratory Result Diagrams: 02/16/20 22:51 02/16/20 22:51 Laboratory results interpreted by me: 02/16/20 02/16/20 02/17/20 22:51 22:51 01:04 WBC 11.7 H RDW 14.6 H Lymph % (Auto) 8.2 L Absolute Neuts (auto) 9.9 H Seg Neutrophils % 84.8 H Chloride 119 H Anion Gap -7 L Total Bilirubin 0.1 L Urine Protein 100 H Urine Blood LARGE H Urine Ascorbic Acid 40 H Salicylates < 1.0 L Acetaminophen < 10 L Discharge - Discharge Clinical Impression: Opiate abuse, episodic, Substance abuse Condition: Stable Disposition: PSYCH HOSP/UNIT Referrals: HERMAN HAYNES DO [Primary Care Provider] - Follow up as needed
[2020-02-16 23:45] LABS: ALBUMIN 4.5 g/dL (3.5-5.0); ALKALINE PHOSPHATASE 85 U/L (38-126); ASPARTATE AMINO TRANSFERASE 28 U/L (14-36); BILIRUBIN,TOTAL 0.1 mg/dL (0.2-1.3); BLOOD UREA NITROGEN 16 mg/dL (7-20); CALCIUM 9.6 mg/dL (8.4-10.2); CARBON DIOXIDE 30 mmol/L (22-30); CHLORIDE 119 mmol/L (98-107); GLUCOSE 92 mg/dL (75-110); POTASSIUM 4.1 mmol/L (3.6-5.0); TOTAL PROTEIN 8.1 g/dL (6.3-8.2)
[2020-02-16] MEDS ORDERED: HALOPERIDOL LACTATE INJ 5 MG/1 ML VIAL IV ONE (23:49)
[2020-02-17 00:08] LABS: ACETAMINOPHEN < 10 ug/mL (10-30); ALCOHOL < 10 mg/dL (NONE DETECTED); ANION GAP -7 (5-19); SALICYLATE < 1.0 mg/dL (2.0-20.0)
[2020-02-17 01:24] LABS: APPEARANCE,URINE CLOUDY; BILIRUBIN,URINE NEGATIVE (NEGATIVE); COLOR,URINE RED; GLUCOSE, URINE NEGATIVE (NEGATIVE); KETONES,URINE NEGATIVE (NEGATIVE); LEUKOCYTE ESTERASE,URINE NEGATIVE (NEGATIVE); NITRITE,URINE NEGATIVE (NEGATIVE); PROTEIN,URINE 100 mg/dL (NEGATIVE); URINE SPECIFIC GRAVITY 1.014; UROBILINOGEN,URINE NEGATIVE mg/dL (<2.0)
[2020-02-17 01:39] LABS: URINE AMPHETAMINES SCREEN NEGATIVE; URINE BARBITURATES SCREEN NEGATIVE; URINE BENZODIAZEPINES SCREEN NEGATIVE; URINE COCAINE SCREEN NEGATIVE; URINE MARIJUANA (THC) SCREEN NEGATIVE; URINE METHADONE SCREEN NEGATIVE
[2020-02-17 01:40] LABS: URINE PHENCYCLIDINE SCREEN UNCONFIRMED POSITIVE
[2020-02-17] MEDS ORDERED: LIDOCAINE 5% (700 MG) TRANSDERMAL ADH..PATCH TP ONE (02:21)
--- NOTE | 2020-02-17 08:27 | ER Document Report ---
Doctor's Note Notes: 02/17/20 08:26 Patient sleeping, nursing staff report no issues thus far this morning. 02/17/20 13:21 PHYSICAL EXAMINATION: GENERAL: Well-appearing and in no acute distress. HEAD: Atraumatic, normocephalic. EYES: sclera anicteric, conjunctiva are normal. ENT: nares patent. Moist mucous membranes. NECK: Normal range of motion, supple without lymphadenopathy LUNGS: CTAB and equal. No wheezes rales or rhonchi. HEART: Regular rate and rhythm without murmurs EXTREMITIES: Normal range of motion BACK: No midline tenderness, no step-off or deformity. No CVA tenderness NEUROLOGICAL: Cranial nerves grossly intact. Normal speech. PSYCH: Normal mood, normal affect. SKIN: Warm, Dry, normal turgor, no rashes or lesions noted Patient has been cleared from mental health team services. Patient is medically clear as well. Patient appears stable for discharge, patient is agreeable with this discharge plan of care.
--- NOTE | 2020-02-17 10:08 | EKG REPORT ---
SEVERITY:- NORMAL ECG - SINUS RHYTHM : Confirmed by: Amelia Paige MD 17-Feb-2020 10:07:57
[2020-02-17 13:33] VITALS: BP 142/79
--- NOTE | 2020-02-17 13:57 | PSYCHOLOGICAL NOTE ---
Psych Note - Psych Note Date seen by psych provider: 02/17/20 Time seen by psych provider: 12:15 Psych Note: Patient is a 29-year-old female who presents to ED via EMS for overdose on 5 boxes of cold medicine. Patient is known to behavioral health team. Patient has an extensive history of abusing cold medicines (approximately 10 years). Patient states states she took 5 boxes of cold medication which resulted in "the shakes so bad." Patient states her mother supplies the cold medication to her. Patient spoke of cold medication "being legal" and how it "should be removed from the shelves." Clinician discussed the incongruence of patient's statement. Patient replied with concerns of withdraw and addiction. Patient states she will present to [facility] for treatment. Provided patient with psychoeducation regarding the cognitive effects of abusing cold medication. Clinician notes patient's limited insight and judgment. Patient denies event was an attempt at suicide. Patient complained of not being prescribed stimulant medication for her PTSD and ADD. Clinician stated that she would need to detox and cease use/abuse of cold medications in order to determine her baseline before medications could be considered. Patient replied that "people just need to trust me." Clinician notes patient can present childlike at times. patient Patient is alert and oriented to person, place, time and circumstance. Mood is normal with congruent affect. Patient denies suicidal and homicidal ideations. There is no observed behavior that suggests patient is responding to internal stimuli. Patient is able to engage in organized, rational thought processes. Patient is able to express needs and wants in a logical manner. Patient spoke of a "demon" in her bathroom, nightmares, and experiencing flashbacks." Eye contact is appropriate. Conversational speech is within normal rate, tone, and prosody. Intellectual ability appears to be within normal limits. Attention and concentration are fair. Insight, judgment and impulse control are currently fair to poor. Impression\\plan: Patient is recommended for rescind of 24 hour petition for evaluation and is cleared from acute psychiatric services. Patient has a long history of substance abuse and noncompliance on her psychiatric medications. This patient is well-known to behavioral health team and is believed to be at her baseline. Patient denies suicidal and homicidal ideation. Patient's statement about the demon can be best explained by current use and chronic misuse of cold medications, as hallucinations can be expected. Patient is recommended to continue working with her outpatient mental health provider, was highly encourage to abstain from using cold and cough medication. Patient was provided with psychoeducation regarding the negative consequences of abuse of cold medications. Patient lives with her mother, who is Patient is established with [facility] for higher level outpatient services and has been contacted regarding patient's ED visit. Dr. Adamson was consulted and the care management this patient; attending physician is in agreement with recommendations and disposition.
== END 2020-02-17 13:34 ==
LOC: ER 22:44
DX: F11.10 Opioid abuse, uncomplicated (principal); F19.10 Other psychoactive substance abuse, uncomplicated; F17.200 Nicotine dependence, unspecified, uncomplicated; Z88.0 Allergy status to penicillin
CPT/HCPCS: 93005; 99285; 96360; 96361; 36415; 80307 ×4; 84703; 85025; 80053; 81001; 93010; A9270; J7030

== ENCOUNTER 2020-03-23 17:51 | Emergency (ER) | payer MEDICARE, MEDICAID ==
--- NOTE | 2020-03-23 18:15 | ER Document Report ---
ED Medical Screen (RME) - General Chief Complaint: Psych Problem Stated Complaint: PSYCH EVAL Time Seen by Provider: 03/23/20 18:13 Primary Care Provider: HERMAN HAYNES DO [Primary Care Provider] - Follow up as needed Mode of Arrival: Wheelchair Information source: Patient Notes: 30-year-old female presented to ED for overdose on cough and cold medications. She states about 5 hours ago she took a box and a half of cough and cold medications. We have called poison control at this time. She is getting orders to the nurse at this time. She states she has had history of a clavicle fracture when asked why she took all of the cough and cold medication she states that she took it to get happy because that the only way she can get happy when I asked her did she take any other kind of medication she states she does snort gabapentin. She does have a pulse of 117 224 with a blood pressure of 140/80 and O2 sat of 98%. I have greeted and performed a rapid initial assessment of this patient. A comprehensive ED assessment and evaluation of the patient, analysis of test results and completion of medical decision making process will be conducted by a n additional ED providers. TRAVEL OUTSIDE OF THE [place] IN LAST 30 DAYS: No - Related Data Allergies/Adverse Reactions: Penicillins Allergy (Verified 03/23/20 18:04) Past Medical History Endocrine Medical History: Denies: Hx Diabetes Mellitus Type 1, Hx Diabetes Mellitus Type 2 Renal/ Medical History: Denies: Hx Peritoneal Dialysis GI Medical History: Reports: Hx Hepatitis - Hepatitis C, on no treatment. Musculoskeltal Medical History: Reports Hx Musculoskeletal Trauma - Left foot fracture Psychiatric Medical History: Reports: Hx Bipolar Disorder, Hx Depression, Hx Schizoaffective Disorder, Hx Schizophrenia Infectious Medical History: Reports: Hx Hepatitis - Hepatitis C, on no treatment. - Immunizations Hx Diphtheria, Pertussis, Tetanus Vaccination: Yes Physical Exam - Vital signs Vitals: Temp Pulse Resp BP Pulse Ox 99.7 F 120 H 20 148/86 H 98 03/23/20 17:57 03/23/20 17:57 03/23/20 17:57 03/23/20 17:57 03/23/20 17:57 Course - Vital Signs Vital signs: Temp Pulse Resp BP Pulse Ox 99.7 F 120 H 20 148/86 H 98 03/23/20 18:04 03/23/20 17:57 03/23/20 17:57 03/23/20 17:57 03/23/20 17:57 Doctor's Discharge - Discharge Referrals: HERMAN HAYNES, [Primary Care Provider] - Follow up as needed
[2020-03-23] MEDS ORDERED: NORMAL SALINE 1000 ML 1,000 ML IV ONE ×2 (18:17)
[2020-03-23 19:05] LABS: APPEARANCE,URINE CLEAR; BILIRUBIN,URINE NEGATIVE (NEGATIVE); COLOR,URINE YELLOW; GLUCOSE, URINE NEGATIVE (NEGATIVE); KETONES,URINE NEGATIVE (NEGATIVE); LEUKOCYTE ESTERASE,URINE NEGATIVE (NEGATIVE); NITRITE,URINE NEGATIVE (NEGATIVE); PROTEIN,URINE NEGATIVE (NEGATIVE); URINE SPECIFIC GRAVITY 1.016; UROBILINOGEN,URINE NEGATIVE mg/dL (<2.0)
[2020-03-23 19:11] LABS: ABSOLUTE MONOCYTES (AUTO) 0.7 10^3/uL (0.1-1.4); ABSOLUTE NEUT (AUTO) 5.7 10^3/uL (1.7-8.2); BASOPHILS % (AUTO) 0.4 % (0-2); EOSINOPHILS % (AUTO) 0.1 % (0-6); HEMATOCRIT 38.5 % (36.0-47.0); HEMOGLOBIN 12.8 g/dL (12.0-15.5); LYMPHOCYTES % (AUTO) 13.8 % (13-45); MEAN CORPUSCULAR HEMOGLOBIN 29.2 pg (27.0-33.4); MEAN CORPUSCULAR HGB CONC 33.4 g/dL (32.0-36.0); MEAN CORPUSCULAR VOLUME 88 fl (80-97); MONOCYTES % (AUTO) 9.5 % (3-13); PLATELET COUNT 318 10^3/uL (150-450); RED CELL DISTRIBUTION WIDTH 14.1 % (11.5-14.0); SEGMENTED NEUTROPHILS % (AUTO) 76.2 % (42-78); TOTAL CELLS COUNTED % (AUTO) 100 %; WHITE BLOOD COUNT 7.5 10^3/uL (4.0-10.5)
[2020-03-23 19:14] LABS: URINE AMPHETAMINES SCREEN NEGATIVE; URINE BARBITURATES SCREEN NEGATIVE; URINE BENZODIAZEPINES SCREEN NEGATIVE; URINE COCAINE SCREEN NEGATIVE; URINE MARIJUANA (THC) SCREEN NEGATIVE; URINE METHADONE SCREEN NEGATIVE; URINE PHENCYCLIDINE SCREEN UNCONFIRMED POSITIVE
[2020-03-23 19:31] LABS: ALBUMIN 4.8 g/dL (3.5-5.0); ALKALINE PHOSPHATASE 115 U/L (38-126); ASPARTATE AMINO TRANSFERASE 30 U/L (14-36); BILIRUBIN,TOTAL 0.2 mg/dL (0.2-1.3); BLOOD UREA NITROGEN 19 mg/dL (7-20); CALCIUM 9.8 mg/dL (8.4-10.2); GLUCOSE 127 mg/dL (75-110); POTASSIUM 4.3 mmol/L (3.6-5.0); TOTAL PROTEIN 8.8 g/dL (6.3-8.2)
[2020-03-23 19:37] LABS: ACETAMINOPHEN < 10 ug/mL (10-30); ALCOHOL < 10 mg/dL (NONE DETECTED); SALICYLATE < 1.0 mg/dL (2.0-20.0)
[2020-03-23 19:56] LABS: CARBON DIOXIDE 31 mmol/L (22-30); CHLORIDE 115 mmol/L (98-107)
[2020-03-23 19:57] LABS: ANION GAP -3 (5-19)
--- NOTE | 2020-03-23 20:10 | PSYCHOLOGICAL NOTE ---
Psych Note - Psych Note Date seen by psych provider: 03/23/20 Time seen by psych provider: 19:05 Psych Note: Reason for Consult: AMS Patient presents to [facility] ED reporting she took a box and a half of cough medications. She states she did it to be "happy." Patient has a long history of abusing cough medication and she typically takes between a box or 2 at a time. Patient reports she was taking a shower and fell on her chest. She is asking for a mammogram because it "hurt and I hope it's not cancer." Patient states she is converting to Roman Catholic now and is very happy (this also is baseline for the patient, she has evolved over the years "converting" to different religions from Satanist to Faith and now Roman Catholic). Patient denies any thoughts of wanting to harm herself or others and tells clinician she loves the clinician. Patient is alert and orientated to person, place, time and circumstance. Mood is elevated due to being under the influence. She is well groomed and dressed in matching clothes. She denies suicidal and homicidal ideation. Patient c ognitive processes are currently impair due to her being under the influence. Substance abuse Impression/Plan: Patient is recommended for 24 hour petition for evaluation due to her currently being under the influence; petition is signed and placed in patient's chart. Patient has a long history of phencyclidine intoxication and abuse. Once patient is no longer under the influence she can be evaluated and rescinded by attending physician or by behavioral health team. Patient currently denies wanting to harm herself or others and report she took the medications to be "happy" not to hurt herself. Dr. Adamson was consulted on the care and management of this patient attending physician is in agreement with recommendations and disposition.
--- NOTE | 2020-03-23 20:49 | ER Document Report ---
ED General - General Chief Complaint: Psych Problem Stated Complaint: PSYCH EVAL Time Seen by Provider: 03/23/20 18:13 Primary Care Provider: HERMAN HAYNES DO [Primary Care Provider] - Follow up as needed Mode of Arrival: Wheelchair Information source: Patient TRAVEL OUTSIDE OF THE [place] IN LAST 30 DAYS: No - HPI Onset: Just prior to arrival Onset/Duration: Gradual Quality of pain: Other - pain in right breast for over a week Severity: Mild Pain Level: 1 Associated symptoms: None Exacerbated by: Denies Relieved by: Denies Similar symptoms previously: Yes - patient has a habit of abusing cough medications Recently seen / treated by doctor: Yes - patient seen in February for similar issues Notes: 30 year old female with a history of Schizophrenia, Schizoaffective Disorder, Drug Abuse (mostly cold medicines) here in the ER after consuming cold medicine. The patient denies SI or HI and she says she took the over the counter cold medicine to feel good. The patient has been seen in this ER many times before for the same. The patient says she also has some pain in her right breast which she thinks is from falling in the shower. The patient is asking for breast jayson ging. - Related Data Allergies/Adverse Reactions: Penicillins Allergy (Verified 03/23/20 18:04) Past Medical History - General Information source: Patient - Social History Smoking Status: Current Every Day Smoker Frequency of alcohol use: patient used to be heavy drinker but she says shes sober Drug Abuse: Other - Cold Medicines Family History: Reviewed & Not Pertinent Patient has suicidal ideation: No Patient has homicidal ideation: No Endocrine Medical History: Denies: Hx Diabetes Mellitus Type 1, Hx Diabetes Mellitus Type 2 Renal/ Medical History: Denies: Hx Peritoneal Dialysis GI Medical History: Reports: Hx Hepatitis - Hepatitis C, on no treatment. Musculoskeletal Medical History: Reports Hx Musculoskeletal Trauma - Left foot fracture Psychiatric Medical History: Reports: Hx Bipolar Disorder, Hx Depression, Hx Schizoaffective Disorder, Hx Schizophrenia Infectious Medical History: Reports: Hx Hepatitis - Hepatitis C, on no treatment. - Immunizations Hx Diphtheria, Pertussis, Tetanus Vaccination: Yes Review of Systems - Review of Systems Constitutional: Other - altered mental status EENT: No symptoms reported Cardiovascular: No symptoms reported Respiratory: No symptoms reported Gastrointestinal: No symptoms reported Genitourinary: No symptoms reported Female Genitourinary: No symptoms reported Musculoskeletal: Other - right breast pain Skin: No symptoms reported Hematologic/Lymphatic: No symptoms reported Neurological/Psychological: Confusion, Anxiety -: Yes All other systems reviewed and negative Physical Exam - Vital signs Vitals: Temp Pulse Resp BP Pulse Ox 99.7 F 120 H 20 148/86 H 98 03/23/20 17:57 03/23/20 17:57 03/23/20 17:57 03/23/20 17:57 03/23/20 17:57 - Notes Notes: GENERAL: Well-appearing, well-nourished and in no acute distress. HEAD: Atraumatic, normocephalic. EYES: Pupils equal round and reactive to light, extraocular movements intact, sclera anicteric, conjunctiva are normal. ENT: External ears normal, nares patent, oropharynx clear without exudates. Moist mucous membranes. NECK: Normal range of motion, supple without lymphadenopathy or JVD. LUNGS: Breath sounds clear to auscultation bilaterally and equal. No wheezes rales or rhonchi. HEART: Regular rate and rhythm without murmurs, rubs or gallops. ABDOMEN: Soft, nontender, normoactive bowel sounds. No guarding, no rebound. No masses appreciated. EXTREMITIES: Normal range of motion, no pitting or edema. No clubbing or cyanosis. NEUROLOGICAL: Cranial nerves II through XII grossly intact. Normal speech, normal gait. PSYCH: Animated, somewhat tangential, normal mood SKIN: Warm, Dry, normal turgor, no rashes or lesions noted. Normal appearing right breast. Course - Re-evaluation Re-evalutation: 03/23/20 20:58 The patient took over the counter cough medicine to "feel better." She denies SI or HI and she has done this several times before. Psych saw the patient and took out a 24 hour IVC due to her intoxication with cough medicine. Patient till be observed and re-evaluated from a psych standpoint once she is more sober. 03/24/20 01:31 Nursing staff found that the patient has a laceration to the back of her head. I was called to the patient's room to repair the laceration. The patient does not remember hitting her head on anything. Laceration was 2cm in length and I repaired it with 4 george. 03/24/20 01:42 Patient signed out to oncoming ER provider since psych dispo still has not been made. Psych dispo will be made tomorrow once patient is more sober. - Vital Signs Vital signs: Temp Pulse Resp BP Pulse Ox 98.4 F 99 16 148/98 H 99 03/23/20 20:45 03/23/20 20:45 03/23/20 20:45 03/23/20 20:45 03/23/20 20:45 - Laboratory Result Diagrams: 03/23/20 18:57 03/23/20 18:57 Laboratory results interpreted by me: 03/23/20 03/23/20 03/23/20 18:30 18:57 18:57 RDW 14.1 H Chloride 115 H Carbon Dioxide 31 H Anion Gap -3 L Glucose 127 H Total Protein 8.8 H Urine Ascorbic Acid 40 H Salicylates < 1.0 L Acetaminophen < 10 L - EKG Interpretation by Tn EKG shows normal: Sinus rhythm, [place], Intervals, QRS Complexes, ST-T Waves Rate: Tachycardia Rhythm: NSR Procedures - Laceration/Wound Repair Head Wound length (cm): 2 Wound's Depth, Shape: Superficial, Irregular Wound explored: Clean Wound Repaired With: George - 4 Discharge - Discharge Clinical Impression: Drug abuse Condition: Stable Disposition: OTHER Instructions: Scalp Laceration ([facility]), Care of Stapled Wounds ([facility]) Additional Instructions: Have the george in your head removed in 7-10 days. Wash your head wound with soap and water daily. Stop using cough medications and other substances to get high. Referrals: HERMAN HAYNES, [Primary Care Provider] - Follow up as needed
--- NOTE | 2020-03-24 10:56 | EKG REPORT ---
SEVERITY:- OTHERWISE NORMAL ECG - SINUS TACHYCARDIA : Confirmed by: Leanna Harrell 24-Mar-2020 10:55:43
[2020-03-24] MEDS ORDERED: ACETAMINOPHEN 325 MG TABLET PO ONE (12:54)
--- NOTE | 2020-03-24 12:58 | PSYCHOLOGICAL NOTE ---
Psych Note - Psych Note Date seen by psych provider: 03/24/20 Time seen by psych provider: 12:30 Psych Note: Reason for Consult: AMS Check in conducted with patient: Patient appropriately engages with clinician. She is no longer under the influence. She reports she is starting to sweat and realizes she is going through withdrawal and asks for Tylenol. She apologized for her behaviour to [facility] ED staff easily stating; "I am sorry for my behaviour, I am going through withdrawal." She states she would like to call her mom and confirms she wants to wait outside for her mom; "I want to go home, now...Can I?..I want to wait for my mom outside if it's ok." Patient denies suicidal and homicidal ideation. Eye contact is well maintained. Thought processes are organized and linear. Substance Abuse Impression/Plan: Patient is recommended for rescind of IVC and is cleared from acute psychiatric services. Rescinding paperwork is signed and placed into patient's chart. Patient is no longer under the influence. She engages appropriately with clinician. She denies assistance with sobriety. Patient historically is not compliant with substance abuse and mental health treatment. Clinician attempted to provided psychoeducation on substance abuse; patient lis tens but probability of follow through is low. Dr. Adamson was consulted on the care and management of this patient; attending physician is in agreement with recommendations and disposition.
[2020-03-24 13:03] VITALS: BP 134/75
== END 2020-03-24 13:45 | disposition home or self-care (01) ==
LOC: ER 17:51
PROC: 0HQ0XZZ Repair Scalp Skin, External Approach (ICD-10-PCS; principal; 2020-03-23)
DX: S01.01XA Laceration without foreign body of scalp, initial encounter (principal); F19.10 Other psychoactive substance abuse, uncomplicated; F20.9 Schizophrenia, unspecified; N64.4 Mastodynia; F41.9 Anxiety disorder, unspecified; R41.0 Disorientation, unspecified; W18.2XXA Fall in (into) shower or empty bathtub, initial encounter; Y92.121 Bathroom in nursing home as the place of occurrence of the external cause; Z88.0 Allergy status to penicillin; F17.200 Nicotine dependence, unspecified, uncomplicated
CPT/HCPCS: 93005; 99285; 36415; 80307 ×4; 84703; 85025; 80053; 81001; 93010; 12001; A9270

== ENCOUNTER 2020-04-01 09:43 | Emergency (ER) | payer MEDICARE, MEDICAID ==
--- NOTE | 2020-04-01 10:30 | ER Document Report ---
ED Suture/Wound Recheck - General Chief Complaint: Suture Removal Stated Complaint: SUTURE REMOVAL Time Seen by Provider: 04/01/20 10:25 Primary Care Provider: HERMAN HAYNES DO [Primary Care Provider] - Follow up in 3-5 days Mode of Arrival: Ambulatory Information source: Patient Notes: 30-year-old female presented to ED for having george removed from her posterior scalp. She states that she got injured and had george put in the back of her head and they needed to come out. There is no bleeding no signs of infection and is in no discomfort at this time. Patient was talking and hearing things while we were getting the george out. She states she is getting off of cough medicines and she sees and hears things frequently. She states she does not work she lives alone and she told me she does have hep C to be careful. She states she still uses large amounts of cough medicine but has tried to come off of them. TRAVEL OUTSIDE OF THE [place] IN LAST 30 DAYS: No - HPI Previous ED treatment: Laceration repair Quality of pain: No pain Severity: None Pain Level: Denies Context: Injury Symptoms since procedure: No complaints Exacerbated by: Denies Relieved by: Denies - Related Data Allergies/Adverse Reactions: Penicillins Allergy (Verified 03/23/20 18:04) Past Medical History - General Information source: Patient - Social History Smoking Status: Current Every Day Smoker Cigarette use (# per day): Yes - Half a pack a day Chew tobacco use (# tins/day): Yes Smoking Education Provided: Yes - 4 minutes Frequency of alcohol use: None Drug Abuse: Other - Large doses of cough medicines Lives with: Family Family History: Reviewed & Not Pertinent Patient has suicidal ideation: No Patient has homicidal ideation: No - Past Medical History Cardiac Medical History: Reports: None Pulmonary Medical History: Reports: None EENT Medical History: Reports: None Neurological Medical History: Reports: None Endocrine Medical History: Reports: None Renal/ Medical History: Reports: None Malignancy Medical History: Reports: None GI Medical History: Reports: Hx Hepatitis - Hepatitis C, on no treatment. Musculoskeletal Medical History: Reports Hx Musculoskeletal Trauma - Left foot fracture Skin Medical History: Reports None Psychiatric Medical History: Reports: Hx Bipolar Disorder, Hx Depression, Hx Schizoaffective Disorder, Hx Schizophrenia Traumatic Medical History: Reports: None Infectious Medical History: Reports: Hx Hepatitis - Hepatitis C, on no treatment. Surgical Hx: Negative - Immunizations Hx Diphtheria, Pertussis, Tetanus Vaccination: Yes Review of Systems - Review of Systems Constitutional: No symptoms reported EENT: No symptoms reported, Other - [place] removed from posterior scalp Cardiovascular: No symptoms reported Respiratory: No symptoms reported Gastrointestinal: No symptoms reported Genitourinary: No symptoms reported Female Genitourinary: No symptoms reported Musculoskeletal: No symptoms reported Skin: Other - Staple removed from posterior scalp Hematologic/Lymphatic: No symptoms reported Neurological/Psychological: Confusion - Patient states she is hearing and seeing things she does not normally hear and see when trying to get off the cough medicine -: Yes All other systems reviewed and negative Physical Exam - Vital signs Vitals: Temp Pulse Resp BP Pulse Ox 97.8 F 94 16 149/102 H 99 04/01/20 09:51 04/01/20 09:51 04/01/20 09:51 04/01/20 09:51 04/01/20 09:51 Interpretation: Normal - General General appearance: Appears well, Alert - HEENT Head: Normocephalic, Atraumatic Eyes: Normal Pupils: PERRL - Respiratory Respiratory status: No respiratory distress Chest status: Nontender Breath sounds: Normal Chest palpation: Normal - Cardiovascular Rhythm: Regular Heart sounds: Normal auscultation Murmur: No - Abdominal Inspection: Normal Distension: No distension Bowel sounds: Normal Tenderness: Nontender Organomegaly: No organomegaly - Back Back: Normal, Nontender - Extremities General upper extremity: Normal inspection, Nontender, Normal color, Normal ROM, Normal temperature General lower extremity: Normal inspection, Nontender, Normal color, Normal ROM, Normal temperature, Normal weight bearing. No: Douglas's sign - Neurological Neuro grossly intact: Yes Cognition: Normal Orientation: AAOx4 Luis Alberto Coma Scale Eye Opening: Spontaneous [place]ill Coma Scale Verbal: Oriented Luis Alberto Coma Scale Motor: Obeys Commands Luis Alberto Coma Scale Total: 15 Speech: Normal Motor strength normal: LUE, RUE, LLE, RLE Sensory: Normal - Psychological Associated symptoms: Normal affect, Normal mood - Skin Skin Temperature: Warm Skin Moisture: Dry Skin Color: Normal Location of irregularity: Scalp - 4 sutures removed from posterior scalp no bleeding no sounds or symptom of infection well approximated laceration Course - Re-evaluation Re-evalutation: 04/01/20 16:48 [place] removed with no difficulty. Patient had no pain during removal. Patient tolerated well. Patient was talking to people who were not there while I removed the george. - Vital Signs Vital signs: Temp Pulse Resp BP Pulse Ox 97.8 F 94 16 150/91 H 99 04/01/20 10:20 04/01/20 09:51 04/01/20 09:51 04/01/20 10:31 04/01/20 09:51 Discharge - Discharge Clinical Impression: Staple removal from the back of her head Condition: Stable Disposition: HOME, SELF-CARE Additional Instructions: Staple Removal Your george have been removed. Please follow the care instructions the doctor/nurse practitioner has outlined for you. Unless instructed otherwise, you may get the wound wet and you do not need to continue bandaging it. You may begin to return to regular activities, but remember that it takes the inner tissues up to six weeks to fully heal. Therefore, do not subject the wound to significant forces or stress as it may re-open. See the doctor immediately if any signs of infection occur such as swelling, redness, drainage of pus, increasing tenderness, red streaks, tender lumps in the armpit or groin above the laceration, or fever. Unless you are instructed otherwise, you should not need to be seen again for any further evaluation of your wound. Antibiotic Ointment Protection Your wounds are such that dressing them is not practical or optional. After cleansing, you should apply a thin coating of antibiotic ointment (Bacitracin, not Neosporin) to the wounds at least three times daily. This lessens infection risk, and may decrease the amount of scarring. Use a q-tip or dull butter knife, not your finger, to apply this ointment. Any debris or ooze which builds up in the ointment should be gently rubbed off with a sterile gauze pad. Harder crusting may need to be gently scrubbed off with a clean wash cloth with soap and warm water, perhaps applying a warm, wet wash cloth to the wound for ten minutes first. Development of redness, severe itching, or blistering may mean allergy to the ointment. See the doctor. FOLLOW-UP CARE: If you have been referred to a physician for follow-up care, call the physicians office for an appointment as you were instructed or within the next two days. If you experience worsening or a significant change in your symptoms, notify the physician immediately or return to the Emergency Department at any time for re-evaluation. Forms: Elevated Blood Pressure, Smoking Cessation Education Referrals: HERMAN HAYNES DO [Primary Care Provider] - Follow up in 3-5 days
[2020-04-01 10:31] VITALS: BP 150/91
== END 2020-04-01 10:34 | disposition home or self-care (01) ==
LOC: ER 09:43
DX: S01.01XD Laceration without foreign body of scalp, subsequent encounter (principal); X58.XXXD Exposure to other specified factors, subsequent encounter; Z88.0 Allergy status to penicillin; F17.210 Nicotine dependence, cigarettes, uncomplicated

== ENCOUNTER 2020-04-01 16:05 | Emergency (ER) | payer MEDICARE, MEDICAID ==
--- NOTE | 2020-04-01 16:28 | ER Document Report ---
ED General - General Chief Complaint: Psych Problem Stated Complaint: PSYCH PROBLEM Time Seen by Provider: 04/01/20 16:14 Primary Care Provider: HERMAN HAYNES DO [NO LOCAL MD] - Follow up as needed Mode of Arrival: Medic Information source: Patient Notes: 30-year-old female with history of history of Schizophrenia, Schizoaffective Disorder, Drug Abuse (mostly cold medicines- per [facility]) presents to the emergency department via EMS for taking an unknown amount of cough medicines, possibly a box and a half. Patient also is making jerking movements. She complains of increased gas, experiencing flatulence as we talk. Difficult historian at this time. Patient was treated here earlier for staple removal. At that time she was having auditory hallucinations talking to people that are not there. TRAVEL OUTSIDE OF THE [place] IN LAST 30 DAYS: No - HPI Quality of pain: No pain Associated symptoms: None Exacerbated by: Denies Relieved by: Denies Similar symptoms previously: Yes Recently seen / treated by doctor: Yes - Related Data Allergies/Adverse Reactions: Penicillins Allergy (Verified 03/23/20 18:04) Past Medical History - General Information source: Patient - Social History Smoking Status: Current Every Day Smoker Cigarette use (# per day): Yes Frequency of alcohol use: None Drug Abuse: Other - cold medicines Lives with: Alone Family History: Reviewed & Not Pertinent Patient has suicidal ideation: No Patient has homicidal ideation: No Endocrine Medical History: Denies: Hx Diabetes Mellitus Type 1, Hx Diabetes Mellitus Type 2 Renal/ Medical History: Denies: Hx Peritoneal Dialysis GI Medical History: Reports: Hx Hepatitis - Hepatitis C, on no treatment. Musculoskeletal Medical History: Reports Hx Musculoskeletal Trauma - Left foot fracture Psychiatric Medical History: Reports: Hx Bipolar Disorder, Hx Depression, Hx Schizoaffective Disorder, Hx Schizophrenia Infectious Medical History: Reports: Hx Hepatitis - Hepatitis C, on no treatment. - Immunizations Hx Diphtheria, Pertussis, Tetanus Vaccination: Yes Review of Systems - Review of Systems Notes: Review HPI for review of systems., All other systems negative Physical Exam - Vital signs Vitals: Temp 98.6 F 04/01/20 16:15 - Notes Notes: PHYSICAL EXAMINATION: GENERAL: no acute distress HEAD: Atraumatic, normocephalic. EYES: Pupils equal round and reactive to light, extraocular movements intact, sclera anicteric, conjunctiva are normal. ENT: nares patent, oropharynx clear without exudates. Moist mucous membranes. NECK: Normal range of motion, supple without lymphadenopathy LUNGS: CTAB and equal. No wheezes rales or rhonchi. HEART: Regular rate and rhythm without murmurs ABDOMEN: Soft, no tenderness. No guarding, no rebound EXTREMITIES: Normal range of motion, no pitting edema. No cyanosis. NEUROLOGICAL: Cranial nerves grossly intact. PSYCH: SKIN: Warm, Dry, normal turgor, no rashes or lesions noted Course - Re-evaluation Re-evalutation: 04/01/20 19:00 Laboratory 04/01/20 04/01/20 04/01/20 16:35 16:35 16:49 WBC 5.5 RBC 4.43 Hgb 12.9 Hct 38.5 MCV 87 MCH 29.0 MCHC 33.4 RDW 14.1 H Plt Count 253 Lymph % (Auto) 19.5 [place] % (Auto) 11.6 Eos % (Auto) 0.6 Baso % (Auto) 0.3 Absolute Neuts (auto) 3.7 Absolute Lymphs (auto) 1.1 Absolute Monos (auto) 0.6 Absolute Eos (auto) 0.0 Absolute Basos (auto) 0.0 Seg Neutrophils % 68.0 Sodium 140.1 Potassium 4.1 Chloride 114 H Carbon Dioxide 27 Anion Gap -1 L BUN 15 Creatinine 0.89 Est GFR ( Amer) > 60 Est GFR (MDRD) Non-Af > 60 Glucose 108 Calcium 8.9 Total Bilirubin 0.1 L Direct Bilirubin 0.0 Neonat Total Bilirubin Not Reportable Neonat Direct Bilirubin Not Reportable Neonat Indirect Bili Not Reportable AST 27 ALT 29 Alkaline Phosphatase 102 Total Protein 7.7 Albumin 4.3 Urine Color YELLOW Urine Appearance SLIGHTLY-CLOUDY Urine pH 6.0 Ur Specific [place] 1.016 Urine Protein 30 H Urine Glucose (UA) NEGATIVE Urine Ketones NEGATIVE Urine Blood NEGATIVE Urine Nitrite NEGATIVE Urine Bilirubin NEGATIVE Urine Urobilinogen NEGATIVE Ur Leukocyte Esterase NEGATIVE Urine WBC (Auto) 2 U Hyaline Cast (Auto) 33 Squamous Epi Cells Auto <1 Urine Mucus (Auto) RARE Urine Ascorbic Acid 40 H Salicylates < 1.0 L Urine Opiates Screen Urine Methadone Screen Acetaminophen < 10 L Ur Barbiturates Screen Ur Phencyclidine Scrn Ur Amphetamines Screen U Benzodiazepines Scrn Urine Cocaine Screen U Marijuana (THC) Screen Serum Alcohol < 10 04/01/20 16:49 WBC RBC Hgb Hct MCV MCH MCHC RDW Plt Count Lymph % (Auto) [place] % (Auto) Eos % (Auto) Baso % (Auto) Absolute Neuts (auto) Absolute Lymphs (auto) Absolute Monos (auto) Absolute Eos (auto) Absolute Basos (auto) Seg Neutrophils % Sodium Potassium Chloride Carbon Dioxide Anion Gap BUN Creatinine Est GFR ( Amer) Est GFR (MDRD) Non-Af Glucose Calcium Total Bilirubin Direct Bilirubin Neonat Total Bilirubin Neonat Direct Bilirubin Neonat Indirect Bili AST ALT Alkaline Phosphatase Total Protein Albumin Urine Color Urine Appearance Urine pH Ur Specific [place] Urine Protein Urine Glucose (UA) Urine Ketones Urine Blood Urine Nitrite Urine Bilirubin Urine Urobilinogen Ur Leukocyte Esterase Urine WBC (Auto) U Hyaline Cast (Auto) Squamous Epi Cells Auto Urine Mucus (Auto) Urine Ascorbic Acid Salicylates Urine Opiates Screen UNCONFIRMED POSITIVE Urine Methadone Screen NEGATIVE Acetaminophen Ur Barbiturates Screen NEGATIVE Ur Phencyclidine Scrn UNCONFIRMED POSITIVE Ur Amphetamines Screen NEGATIVE U Benzodiazepines Scrn NEGATIVE Urine Cocaine Screen NEGATIVE U Marijuana (THC) Screen NEGATIVE Serum Alcohol 04/01/20 19:01 Patient resting quietly after eating dinner. Labs unremarkable. Positive for opiates and phencyclidine 04/01/20 20:18 Patient calm resting quietly. Report given to JACQUELINE Kumar - Vital Signs Vital signs: Temp Pulse Resp BP Pulse Ox 98.6 F 105 H 22 H 157/86 H 95 04/01/20 16:25 04/01/20 16:25 04/01/20 16:25 04/01/20 16:25 04/01/20 16:25 - Laboratory Result Diagrams: 04/01/20 16:35 04/01/20 16:35 Laboratory results interpreted by me: 04/01/20 04/01/20 04/01/20 16:35 16:35 16:49 RDW 14.1 H Chloride 114 H Anion Gap -1 L Total Bilirubin 0.1 L Urine Protein 30 H Urine Ascorbic Acid 40 H Salicylates < 1.0 L Acetaminophen < 10 L - EKG Interpretation by Ny EKG shows normal: Sinus rhythm Rate: Normal Rhythm: NSR Additional EKG results interpreted by me: 04/01/20 19:[address] elevation no T wave inversion Discharge - Discharge Clinical Impression: Hallucinations, Drug abuse Condition: Stable Disposition: PSYCH HOSP/UNIT Referrals: HERMAN HAYNES DO [NO LOCAL MD] - Follow up as needed
[2020-04-01 16:52] LABS: ABSOLUTE LYMPHOCYTES (AUTO) 1.1 10^3/uL (0.5-4.7); ABSOLUTE MONOCYTES (AUTO) 0.6 10^3/uL (0.1-1.4); ABSOLUTE NEUT (AUTO) 3.7 10^3/uL (1.7-8.2); BASOPHILS % (AUTO) 0.3 % (0-2); EOSINOPHILS % (AUTO) 0.6 % (0-6); HEMATOCRIT 38.5 % (36.0-47.0); HEMOGLOBIN 12.9 g/dL (12.0-15.5); LYMPHOCYTES % (AUTO) 19.5 % (13-45); MEAN CORPUSCULAR HGB CONC 33.4 g/dL (32.0-36.0); MEAN CORPUSCULAR VOLUME 87 fl (80-97); MONOCYTES % (AUTO) 11.6 % (3-13); PLATELET COUNT 253 10^3/uL (150-450); RED BLOOD COUNT 4.43 10^6/uL (3.72-5.28); RED CELL DISTRIBUTION WIDTH 14.1 % (11.5-14.0); TOTAL CELLS COUNTED % (AUTO) 100 %; WHITE BLOOD COUNT 5.5 10^3/uL (4.0-10.5)
[2020-04-01 16:53] VITALS: BP 157/86
[2020-04-01 17:40] LABS: APPEARANCE,URINE SLIGHTLY-CLOUDY; BILIRUBIN,URINE NEGATIVE (NEGATIVE); COLOR,URINE YELLOW; GLUCOSE, URINE NEGATIVE (NEGATIVE); KETONES,URINE NEGATIVE (NEGATIVE); LEUKOCYTE ESTERASE,URINE NEGATIVE (NEGATIVE); NITRITE,URINE NEGATIVE (NEGATIVE); PROTEIN,URINE 30 mg/dL (NEGATIVE); URINE SPECIFIC GRAVITY 1.016; UROBILINOGEN,URINE NEGATIVE mg/dL (<2.0)
[2020-04-01 17:49] LABS: URINE AMPHETAMINES SCREEN NEGATIVE; URINE BARBITURATES SCREEN NEGATIVE; URINE BENZODIAZEPINES SCREEN NEGATIVE; URINE COCAINE SCREEN NEGATIVE; URINE MARIJUANA (THC) SCREEN NEGATIVE; URINE METHADONE SCREEN NEGATIVE
[2020-04-01 17:56] LABS: URINE PHENCYCLIDINE SCREEN UNCONFIRMED POSITIVE
[2020-04-01 18:13] LABS: ALBUMIN 4.3 g/dL (3.5-5.0); ALKALINE PHOSPHATASE 102 U/L (38-126); ASPARTATE AMINO TRANSFERASE 27 U/L (14-36); BILIRUBIN,TOTAL 0.1 mg/dL (0.2-1.3); BLOOD UREA NITROGEN 15 mg/dL (7-20); CALCIUM 8.9 mg/dL (8.4-10.2); CARBON DIOXIDE 27 mmol/L (22-30); CHLORIDE 114 mmol/L (98-107); GLUCOSE 108 mg/dL (75-110); POTASSIUM 4.1 mmol/L (3.6-5.0); TOTAL PROTEIN 7.7 g/dL (6.3-8.2)
[2020-04-01 18:23] LABS: ACETAMINOPHEN < 10 ug/mL (10-30); ALCOHOL < 10 mg/dL (NONE DETECTED); ANION GAP -1 (5-19); SALICYLATE < 1.0 mg/dL (2.0-20.0)
--- NOTE | 2020-04-01 19:10 | EKG REPORT ---
SEVERITY:- OTHERWISE NORMAL ECG - SINUS TACHYCARDIA : Confirmed by: Elder Carolina MD 01-Apr-2020 19:10:17
[2020-04-01] MEDS ORDERED: HALOPERIDOL DECANOATE INJ 100 MG/1 ML VIAL IM PRN (19:22)
[2020-04-01] MEDS ORDERED: HALOPERIDOL LACTATE INJ 5 MG/1 ML VIAL IM ONE (19:59)
[2020-04-01] MEDS ORDERED: LORAZEPAM INJ 2 MG/1 ML VIAL IM ONE (20:47)
--- NOTE | 2020-04-01 20:56 | PSYCHOLOGICAL NOTE ---
Psych Note - Psych Note Date seen by psych provider: 04/01/20 Time seen by psych provider: 17:41 Psych Note: Reason for Consult: AMS Patient presents to [facility] ED reporting she took a box and a half of cough medications. She states she did it to be "happy." Patient is currently tearful. She states she is sad because she needs friends and its Memorial Day. Patient has a long history of abusing cough medication and she typically takes between a box or 2 at a time. Patient is alert and orientated to person, place, time and circumstance. She denies suicidal and homicidal ideation. Patient cognitive processes are currently impair due to her being under the influence. Mood is labile with tearful affect. Patient goes from yelling to apologizing to staff. Medication recommendations per [facility]'s contract psychiatrist Dr. Adela NIELSON are as follows: Haldol 10 mg IM once Haldol 5 mg twice daily Cogentin 1 mg daily Substance abuse Impression/Plan: Patient is recommended for 24 hour petition for evaluation due to her currently being under the influence; petition is signed and placed in patient's chart. Patient has a long history of phencyclidine intoxication and abuse. Once patient is no longer under the influence she can be evaluated and rescinded by attending physician or by behavioral health team. Dr. Adamson was consulted on the care and management of this patient attending physician is in agreement with recommendations and disposition.
--- NOTE | 2020-04-02 08:48 | PSYCHOLOGICAL NOTE ---
Psych Note - Psych Note Date seen by psych provider: 04/02/20 Time seen by psych provider: 07:55 Psych Note: Reason for Consult: AMS Patient presents to [facility] ED reporting she took a box and a half of cough medications. She states she did it to be "happy." Patient is currently tearful. She states she is sad because she needs friends and its Memorial Day. Patient has a long history of abusing cough medication and she typically takes between a box or 2 at a time. Check in conducted with patient: she reports she is feeling better. She states Memorial Day made her very sad and she was lonely. She refuses to discuss abstaining from using cough medications even when attempting to explain she reportedly uses it for pain relief rather than cough suppressant. She states the hallucinating makes her happy. Clinician discussed the concern that the patient was not happy last night, she agrees. Patient is willing to "think" about talking less cough medications but continues to refuse sobriety. She apologized again for her behaviours last night. She reports she plans to call her mothers to pick her up and drive her home. She states she has no other concerns at this time. She denies any thoughts of wanting to harm herself or others. She is not longer demonstrating liable mood and is able to engage in effective organize and linear conversation. 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 Patient is no longer under the influence and reports she will "think" about decreasing her cough medication use. She refuses to engage in conversations about sobering. Patient has long history of Phencyclidine Use disorder (cough syrup). Patient is also historically noncompliant with her mental health services; she well known to this clinician and department. Dr. Adamson was consulted on the care and management of this patient attending physician is in agreement with recommendations and disposition.
[2020-04-02] MEDS ORDERED: BENZTROPINE MESYLATE 1 MG TABLET PO SCH (10:00)
[2020-04-02] MEDS ORDERED: HALOPERIDOL 5 MG TABLET PO SCH (10:00)
--- NOTE | 2020-04-02 10:26 | ER Document Report ---
Doctor's Note Notes: 04/02/20 10:24 PHYSICAL EXAMINATION: GENERAL: Appears well, healthy, well-nourished, no acute distress. LUNGS: Equal breath sounds bilaterally and clear to auscultation. No wheezes rales or rhonchi. CARDIOVASCULAR: S1-S2, regular rate, regular rhythm. Radial pulses 2+, normal. ABDOMEN: Normoactive bowel sounds. Soft, nontender, no guarding, no rebound tenderness, and no masses palpated. PSYCH: Normal mood, normal affect. Patient denies any suicidal or homicidal ideation. Patient denies any auditory or visual hallucinations. Mental health has evaluated patient. Patient will go home with mother. Follow-up precautions were given. Verbal discharge instructions were given to the patient. They verbalized understanding. They are stable for discharge.
== END 2020-04-02 13:41 | disposition home or self-care (01) ==
LOC: ER 16:05
DX: F20.9 Schizophrenia, unspecified (principal); F19.10 Other psychoactive substance abuse, uncomplicated; R25.1 Tremor, unspecified; F17.210 Nicotine dependence, cigarettes, uncomplicated
CPT/HCPCS: 93005; 99285; 96372; 36415; 80307 ×4; 85025; 81025; 80053; 81001; 93010; A9270 ×2; J1630; J2060

== ENCOUNTER 2020-05-14 05:23 | Emergency (ER) | payer MEDICARE, MEDICAID ==
--- NOTE | 2020-05-14 07:21 | EKG REPORT ---
SEVERITY:- BORDERLINE ECG - SINUS RHYTHM BORDERLINE PROLONGED QT INTERVAL : Confirmed by: Elder Carolina MD 14-May-2020 07:21:09
[2020-05-14 07:24] LABS: ABSOLUTE LYMPHOCYTES (AUTO) 1.7 10^3/uL (0.5-4.7); ABSOLUTE MONOCYTES (AUTO) 1.1 10^3/uL (0.1-1.4); ABSOLUTE NEUT (AUTO) 9.3 10^3/uL (1.7-8.2); BASOPHILS % (AUTO) 0.4 % (0-2); EOSINOPHILS % (AUTO) 0.3 % (0-6); HEMOGLOBIN 11.5 g/dL (12.0-15.5); LYMPHOCYTES % (AUTO) 13.9 % (13-45); MEAN CORPUSCULAR HEMOGLOBIN 28.8 pg (27.0-33.4); MEAN CORPUSCULAR VOLUME 87 fl (80-97); MONOCYTES % (AUTO) 8.7 % (3-13); PLATELET COUNT 223 10^3/uL (150-450); RED BLOOD COUNT 4.01 10^6/uL (3.72-5.28); RED CELL DISTRIBUTION WIDTH 15.6 % (11.5-14.0); SEGMENTED NEUTROPHILS % (AUTO) 76.7 % (42-78); TOTAL CELLS COUNTED % (AUTO) 100 %; WHITE BLOOD COUNT 12.1 10^3/uL (4.0-10.5)
[2020-05-14 07:39] LABS: ALKALINE PHOSPHATASE 102 U/L (38-126); ASPARTATE AMINO TRANSFERASE 47 U/L (14-36); BILIRUBIN,TOTAL 0.3 mg/dL (0.2-1.3); BLOOD UREA NITROGEN 12 mg/dL (7-20); CALCIUM 9.7 mg/dL (8.4-10.2); GLUCOSE 118 mg/dL (75-110); POTASSIUM 3.8 mmol/L (3.6-5.0); TOTAL PROTEIN 7.5 g/dL (6.3-8.2)
[2020-05-14 07:40] LABS: ACETAMINOPHEN < 10 ug/mL (10-30); ALCOHOL < 10 mg/dL (NONE DETECTED); SALICYLATE < 1.0 mg/dL (2.0-20.0)
[2020-05-14 07:42] LABS: APPEARANCE,URINE SLIGHTLY-CLOUDY; BILIRUBIN,URINE NEGATIVE (NEGATIVE); COLOR,URINE YELLOW; GLUCOSE, URINE NEGATIVE (NEGATIVE); KETONES,URINE NEGATIVE (NEGATIVE); LEUKOCYTE ESTERASE,URINE NEGATIVE (NEGATIVE); NITRITE,URINE NEGATIVE (NEGATIVE); PROTEIN,URINE NEGATIVE (NEGATIVE); URINE SPECIFIC GRAVITY 1.013; UROBILINOGEN,URINE NEGATIVE mg/dL (<2.0)
[2020-05-14 07:47] LABS: CARBON DIOXIDE 27 mmol/L (22-30); CHLORIDE 110 mmol/L (98-107)
[2020-05-14 07:50] LABS: ANION GAP 1 (5-19)
[2020-05-14 07:57] LABS: URINE AMPHETAMINES SCREEN NEGATIVE; URINE BARBITURATES SCREEN NEGATIVE; URINE BENZODIAZEPINES SCREEN NEGATIVE; URINE COCAINE SCREEN NEGATIVE; URINE MARIJUANA (THC) SCREEN NEGATIVE; URINE METHADONE SCREEN NEGATIVE
[2020-05-14 08:02] LABS: URINE PHENCYCLIDINE SCREEN UNCONFIRMED POSITIVE
--- NOTE | 2020-05-14 11:55 | ER Document Report ---
ED General <MIXROBBY - Last Filed: 05/14/20 17:01> - General TRAVEL OUTSIDE OF THE [place] IN LAST 30 DAYS: No <GORDY MOE - Last Filed: 05/14/20 23:07> - General Chief Complaint: Psych Problem Stated Complaint: PSYCH Time Seen by Provider: 05/14/20 07:57 Primary Care Provider: [facility] [Outside] - Follow up as needed [facility] [Outside] - Follow up as needed Notes: 30-year-old female with past medical history of schizophrenia, schizoaffective disorder presenting today after being seen by EMS for constant shaking and temperature in the field of 100.4. Patient is slow to respond. A difficult historian. After she wakes up she is very responsive to questions. States that she drank 3 bottles of cough medication last night. She believes this was what prompted EMS to bring her and. She currently denies any suicidal ideations or homicidal ideations or delusions at this time. She also states that she would like to be tested for an STI and has a vulvar mass. Denies any additional symptoms at this time. (GORDY MOE) - Related Data Allergies/Adverse Reactions: Penicillins Allergy (Verified 03/23/20 18:04) Past Medical History - Social History Smoking Status: Current Every Day Smoker Chew tobacco use (# tins/day): No Frequency of alcohol use: Occasional Drug Abuse: None Family History: Reviewed & Not Pertinent Patient has homicidal ideation: No Endocrine Medical History: Denies: Hx Diabetes Mellitus Type 1, Hx Diabetes Mellitus Type 2 Renal/ Medical History: Denies: Hx Peritoneal Dialysis GI Medical History: Reports: Hx Hepatitis - Hepatitis C, on no treatment. Musculoskeletal Medical History: Reports Hx Musculoskeletal Trauma - Left foot fracture Psychiatric Medical History: Reports: Hx Bipolar Disorder, Hx Depression, Hx Schizoaffective Disorder, Hx Schizophrenia Infectious Medical History: Reports: Hx Hepatitis - Hepatitis C, on no treatment. - Immunizations Hx Diphtheria, Pertussis, Tetanus Vaccination: Yes <GORDY MOE - Last Filed: 05/14/20 23:07> Review of Systems - Review of Systems Constitutional: No symptoms reported EENT: No symptoms reported Cardiovascular: No symptoms reported Respiratory: No symptoms reported Gastrointestinal: No symptoms reported Genitourinary: No symptoms reported Female Genitourinary: See HPI Musculoskeletal: No symptoms reported Skin: No symptoms reported Hematologic/Lymphatic: No symptoms reported Neurological/Psychological: No symptoms reported <GORDY MOE - Last Filed: 05/14/20 23:07> Physical Exam <GORDY MOE - Last Filed: 05/14/20 23:07> - Vital signs Vitals: Temp Pulse Resp BP Pulse Ox 98.7 F 105 H 18 124/61 97 05/14/20 05:31 05/14/20 05:31 05/14/20 05:31 05/14/20 05:31 05/14/20 05:31 - Notes Notes: Adult General: GENERAL: Alert, interacts well. No acute distress HEAD: Normocephalic, atraumatic EYES: Extraocular movements intact. ENT: Airway patent. Nares patent. NECK: Full range of motion. Supple. Trachea midline. LUNGS: Clear to auscultation bilaterally, no wheezes, rales, or rhonchi. No respiratory distress. Nontender chest wall. HEART: Regular rate and rhythm. No murmurs, rubs or gallops. ABDOMEN: Soft, nontender. Nondistended. GENITOURINARY: Deferred EXTREMITIES: Moves all 4 extremities spontaneously. No edema, normal radial and dorsal pedis pulses bilaterally. No cyanosis. BACK: Moves all extremities with full range of motion. NEUROLOGICAL: Alert and oriented x3. Normal speech. Strength 5/ 5 in all extremities. PSYCH: Normal affect, normal mood. SKIN: Warm, dry, normal turgor. No rashes or lesions noted. (GORDY MOE) Course - Laboratory Result Diagrams: 05/14/20 05:54 05/14/20 05:54 <ROBBY MIX - Last Filed: 05/14/20 17:01> - Laboratory Result Diagrams: 05/14/20 05:54 05/14/20 05:54 <GORDY MOE - Last Filed: 05/14/20 23:07> - Re-evaluation Re-evalutation: 05/14/20 11:47 I discussed this patient with [facility] with mental health as this patient is well known to our mental health providers. She states that how the patient is presenting is her normal baseline. She also states that patient usually has a vague complaint of lumps as well. States that she typically asked to have an STI testing. Mental health has been consulted and will see the patient. I did contact poison control notified them of a borderline prolonged QTC of 494. They state that since her vitals are stable and has been over 6 hours since she is presented that she can be discharged home from their standpoint. Patient will remain not IVC'd at this time. If she desires to leave, we recommended that she be IVC at that time. I am pending her sobering up prior to performing a pelvic exam to evaluate the vulvar mass she has concerns about. Patient is now more alert. She continues to report that she has a vulvar mass but she now does not desire any further evaluation of this at this time. She is being transfered to POD 4. Patient has been cleared by mental health. Her labs, vitals and notes have been reviewed. Patient continues to deny having additional symptoms and does not desire further evaluation of her vulvar mass stating she has an appointment with her primary care provider and would like to keep that and will have it evaluated then. Her g/c urine test was cancelled. I have gone ahead and reordered this. I discussed with the patient prophylactic antibiotics for STI. After explanation she desires to go ahead and receive treatment as we are pending the results of the tests. Patient is medically cleared at this time. Will discharge patient. I recommend she follows up with her primary care provider and mental health provider. Patient acknowledges and verbalizes understanding of instructions and plan. All questions answered. (GORDY MOE) - Vital Signs Vital signs: Temp Pulse Resp BP Pulse Ox 98.9 F 89 20 119/68 100 05/14/20 19:30 05/14/20 19:30 05/14/20 19:30 05/14/20 19:30 05/14/20 19:30 - Laboratory Laboratory results interpreted by me: 05/14/20 05/14/20 05/14/20 05:51 05:54 05:54 WBC 12.1 H Hgb 11.5 L Hct 35.0 L RDW 15.6 H Absolute Neuts (auto) 9.3 H Chloride 110 H Anion Gap 1 L Glucose 118 H AST 47 H Urine Ascorbic Acid 40 H Salicylates < 1.0 L Acetaminophen < 10 L Discharge <ROBBY MIX - Last Filed: 05/14/20 17:01> <PAYALJAMELN - Last Filed: 05/14/20 23:07> - Discharge Clinical Impression: Substance abuse Condition: Stable Disposition: HOME, SELF-CARE Additional Instructions: You have been evaluated by both medical and behavioral health teams for AMS and substance abuse and have been deemed appropriate for discharge. While in the emergency department you received the following services: Medical screening and assessment, nursing services, dietary services, pharmacological services, one-on-one counseling and/or psychotherapy, environmental services, and continuous observation by a patient product safety technical assistant. You have consented to "think about" reducing your use of cough medication. It would be beneficial for abstaining from use as you mental health symptoms become more significant due to your use. Please continue working with your outpatient mental health provider, [facility]. Hallucinations You seem to be having hallucinations. Hallucinations are seeing, hearing, or feeling things that don't exist. These symptoms commonly occur with drug abuse and schizophrenia. Drugs like PCP, LSD, MDMA, peyote, and "psychedelic mushrooms" can cause frightening hallucinations. Users of methamphetamine or crack cocaine often see and feel bugs crawling on their skin. Patients with schizophrenia may hear voices that no one else can hear. The delusions of schizophrenia often involve conspiracies or relationships that are not real. When symptoms are due to drug abuse, the mental state usually improves as the drug wears off. Someone you trust should be with you until you are better, to protect you and calm your fears. Tranquilizer medicine is helpful at controlling hallucinations, anxiety, and deluded thoughts. Get a proper diet and enough sleep. Most patients do very well when they get proper medical treatment and social support. You should return at once if your symptoms get worse, if you are having suicidal thoughts or thoughts about hurting others, or if you feel that you are in danger. AT ANY TIME, IF YOUR SYMPTOMS CHANGE SIGNIFICANTLY OR WORSEN OR YOU DEVELOP NEW SYMPTOMS, RETURN TO THE EMERGENCY DEPARTMENT IMMEDIATELY FOR RE-EVALUATION. Follow-up with your primary care provider for your additional concerns. Please return the emergency department if you have worsening symptoms or development of new symptoms. Referrals: [facility] [Outside] - Follow up as needed [facility] [Outside] - Follow up as needed
--- NOTE | 2020-05-14 13:55 | ER Document Report ---
Doctor's Note Notes: 05/14/20 13:53 As patient is more alert at this time I offered to perform a pelvic exam to evaluate for concern of a mass on her vulva. Patient declines evaluation at this time.
[2020-05-14] MEDS ORDERED: CEFTRIAXONE INJ 250 MG VIAL IM ONE (18:46)
[2020-05-14] MEDS ORDERED: AZITHROMYCIN 250 MG TABLET PO ONE (18:46)
[2020-05-14] MEDS ORDERED: LIDOCAINE 1% INJ-PF (10 MG/ML) 30 ML SDV ONE (18:52)
[2020-05-14 19:26] VITALS: BP 119/68
[2020-05-14 19:50] LABS: CHLAM PCR NOT DETECTED (NOT DETECT)
== END 2020-05-14 19:30 | disposition home or self-care (01) ==
LOC: ER 05:23
DX: F19.10 Other psychoactive substance abuse, uncomplicated (principal); Z20.828 Contact with and (suspected) exposure to other viral communicable diseases; R94.31 Abnormal electrocardiogram [ECG] [EKG]; R50.9 Fever, unspecified; N90.9 Noninflammatory disorder of vulva and perineum, unspecified; F20.9 Schizophrenia, unspecified; Z03.89 Encounter for observation for other suspected diseases and conditions ruled out
CPT/HCPCS: 93005; 99284; 36415; 80307 ×4; 85025; 80053; 81001; 87491; 87591; 93010; U0003; A9270; J3490; J0696; C9803; 87635

== ENCOUNTER 2020-05-29 08:51 | Observation (INO) | payer MEDICARE, MEDICAID ==
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
[2020-05-29] MEDS ORDERED: HYDROCODONE/ACETAMINOPHEN 5-325 MG TABLET PO ONE (09:50)
[2020-05-29 10:19] LABS: HEMATOCRIT 33.8 % (36.0-47.0); HEMOGLOBIN 11.1 g/dL (12.0-15.5); MEAN CORPUSCULAR HEMOGLOBIN 28.2 pg (27.0-33.4); MEAN CORPUSCULAR HGB CONC 32.7 g/dL (32.0-36.0); MEAN CORPUSCULAR VOLUME 86 fl (80-97); PLATELET COUNT 378 10^3/uL (150-450); RED BLOOD COUNT 3.93 10^6/uL (3.72-5.28); WHITE BLOOD COUNT 14.7 10^3/uL (4.0-10.5)
[2020-05-29 10:26] LABS: APPEARANCE,URINE CLOUDY; BILIRUBIN,URINE NEGATIVE (NEGATIVE); COLOR,URINE YELLOW; GLUCOSE, URINE NEGATIVE (NEGATIVE); KETONES,URINE NEGATIVE (NEGATIVE); LEUKOCYTE ESTERASE,URINE MODERATE (NEGATIVE); NITRITE,URINE NEGATIVE (NEGATIVE); PROTEIN,URINE NEGATIVE (NEGATIVE); URINE SPECIFIC GRAVITY 1.018; UROBILINOGEN,URINE NEGATIVE mg/dL (<2.0)
[2020-05-29 10:39] LABS: ALBUMIN 3.6 g/dL (3.5-5.0); ALKALINE PHOSPHATASE 132 U/L (38-126); ASPARTATE AMINO TRANSFERASE 20 U/L (14-36); BILIRUBIN,DIRECT 0.1 mg/dL (0.0-0.4); BILIRUBIN,TOTAL 0.2 mg/dL (0.2-1.3); BLOOD UREA NITROGEN 15 mg/dL (7-20); CALCIUM 9.8 mg/dL (8.4-10.2); CHLORIDE 112 mmol/L (98-107); GLUCOSE 122 mg/dL (75-110); POTASSIUM 4.3 mmol/L (3.6-5.0); TOTAL PROTEIN 7.6 g/dL (6.3-8.2); URINE AMPHETAMINES SCREEN NEGATIVE; URINE BARBITURATES SCREEN NEGATIVE; URINE BENZODIAZEPINES SCREEN NEGATIVE; URINE COCAINE SCREEN NEGATIVE; URINE MARIJUANA (THC) SCREEN NEGATIVE; URINE METHADONE SCREEN NEGATIVE
[2020-05-29 10:40] LABS: ACETAMINOPHEN < 10 ug/mL (10-30); ALCOHOL < 10 mg/dL (NONE DETECTED); SALICYLATE < 1.0 mg/dL (2.0-20.0); URINE PHENCYCLIDINE SCREEN UNCONFIRMED POSITIVE
[2020-05-29 10:43] LABS: CARBON DIOXIDE 26 mmol/L (22-30)
[2020-05-29 10:46] LABS: ANION GAP 1 (5-19)
[2020-05-29 10:52] LABS: ABSOLUTE LYMPHOCYTES# (MANUAL) 2.1 10^3/uL (0.5-4.7); ABSOLUTE MONOCYTES # (MANUAL) 1.8 10^3/uL (0.1-1.4); BASOPHILS % (MANUAL) 1 % (0-2); EOSINOPHILS % (MANUAL) 1 % (0-6); LYMPHOCYTES % (MANUAL) 14 % (13-45); MONOCYTES % (MANUAL) 12 % (3-13); SEGMENTED NEUTROPHILS % (MAN) 72 % (42-78); TOTAL CELLS COUNTED 100
[2020-05-29 10:54] LABS: ANISOCYTOSIS SLIGHT; PLATELET COMMENT ADEQUATE; TOXIC GRANULATION SLIGHT; TOXIC VACUOLATION PRESENT
--- NOTE | 2020-05-29 11:42 | PSYCHOLOGICAL NOTE ---
Psych Note - Psych Note Date seen by psych provider: 05/29/20 Time seen by psych provider: 11:00 Psych Note: Reason for Consult: kary Patient reports she came in due to having pain in her rectal area. She confirms that she is experiencing withdrawal from phencyclidine and reports she is hoping that she can convince her mother to purchase some. Patient today reports she is uninterested in stopping or decreasing the amount she uses. Patient is very focused on the pain she is currently having and states that she is scared. Patient continues to report that she has been sexually active and feels that this has caused her problems. Patient is alert and orientated to person, place, time and circumstance. Mood is currently euthymic with expressive affect (ie opening eyes wide and prolonged staring this is base line for patient). Patient denies suicidal and homicidal ideation. she reports accidental medication overdose. Eye contact was intense but is typical for this patient. Conversational speech is slow and halting; this is baseline for the patient. Intellectual abilities appear to be within average range. Attention and concentration are fair. Insight, judgment, impulse control are historically poor. Patient has become very distressed from a noose that she heard from medical provider. Clinician sat with patient to discuss her emotions surrounding finding out she has herpes in addition to an abscess that she needs to be medically admitted for. Patient reports she is very scared and does not understand what her diagnosis means. Clinician provided psychoeducation and emotional support to patient. Clinical Presentation: Cough medication addiction; severe manic characteristics; baseline for this patient Impression/Plan: Patient is cleared from acute psychiatric services. Patient currently presents at her psychiatric baseline. Patient's presentation is well- documented throughout her charts and is well-known to this clinician and department. Patient is currently experiencing withdrawal and is slightly irritable however is in current pain and is emotionally overwhelmed after finding out her medical diagnosis. Psychoeducation and emotional support was provided to the patient. Patient has been medically admitted. Patient was able to calm and confirms she will attempt to contact her mother to provide update. She has no further concerns at this time. Please reconsult if new concerns arise. Dr. Adamson was consulted on the care and management of this patient; attending physician is in agreement with recommendations and disposition.
[2020-05-29] MEDS ORDERED: LEVOFLOXACIN 750 MG/D5W RTU 750 MG/150 ML RTUPB IV ONE (12:10)
[2020-05-29] MEDS ORDERED: FLUCONAZOLE 200 MG/NS RTU 200 MG/100 ML RTUPB IV ONE (12:11)
[2020-05-29] MEDS ORDERED: ACYCLOVIR SODIUM INJ/PF 500 MG/10 ML SDV IV ONE (12:12)
[2020-05-29] MEDS ORDERED: MORPHINE SULFATE 10 MG/ML INJ IV ONE (12:15)
[2020-05-29] MEDS ORDERED: NORMAL SALINE 1000 ML 1,000 ML IV ONE (12:15)
[2020-05-29 12:22] LABS: RBCS (WET MOUNT) NO RBCS SEEN; T.VAGINALIS (WET MOUNT) NO TRICHOMONAS SEEN; WBCS (WET MOUNT) 1+ WBCS SEEN; YEAST (WET MOUNT) NO YEAST SEEN
[2020-05-29 12:23] LABS: BACTERIA (WET MOUNT) 4+ BACTERIA SEEN
[2020-05-29 13:54] LABS: CHLAM PCR NOT DETECTED (NOT DETECT)
[2020-05-29] MEDS ORDERED: MAGNESIUM HYDROXIDE SUSP 30 ML UDCUP PO PRN (14:38)
[2020-05-29] MEDS ORDERED: MAG HYDROX/AL HYDROX/SIMETH SUSP 30 ML UDCUP PO PRN (14:38)
[2020-05-29] MEDS ORDERED: ONDANSETRON 4 MG TAB.RAPDIS PO PRN (14:38)
[2020-05-29] MEDS ORDERED: SIMETHICONE 80 MG TAB.CHEW PO PRN (14:38)
[2020-05-29] MEDS ORDERED: ACETAMINOPHEN 325 MG TABLET PO PRN (14:38)
--- NOTE | 2020-05-29 14:38 | PDOC H&P ---
History of Present Illness Admission Date/PCP: 05/29/20 13:54 HERMAN HAYNES DO Patient complains of: Rectal pain History of Present Illness: MACHO RODRIGUEZ is a 30 year old female with a long psychiatric history. She states that approximately 4 days ago she noticed some discomfort in the perianal area. 3 days ago she started to notice some bleeding and this has been intermittent over the last 3 days. She did receive analgesia and so she is not in significant pain at the moment. She has a long psychiatric history and tends to abuse cough medicine. She also takes Neurontin. She has been on multiple other medications in the past. Her medical history includes (per the patient) PTSD, ADHD, bipolar disorder and anxiety. She has been tried on multiple medications and will discontinue medications on her own at times. She does have a white blood cell count of 14.7. Serum chemistries are grossly within normal limits. Urinalysis shows moderate leukocyte esterase with yeast present. 10 white blood cells per high-power field. Urine drug screen was positive for PCP. We are going to admit the patient to the hospitalist service to manage psychi atric illness. Surgery will be taking the patient to the OR later today to incise and drain the lesion. Past Medical History Cardiac Medical History: Denies: Atrial Fibrillation, Congestive Heart Failure, Coronary Artery Disease, Myocardial Infarction Pulmonary Medical History: Reports: Respiratory Failure - From overdose Denies: Asthma, Chronic Obstructive Pulmonary Disease (COPD), Pneumonia EENT Medical History: Reports: None Neurological Medical History: Denies: Hemorrhagic CVA, Ischemic CVA, Seizures Endocrine Medical History: Denies: Diabetes Mellitus Type 1, Diabetes Mellitus Type 2, Hyperthyroidism Renal/ Medical History: Denies: Chronic Kidney Disease Malignancy Medical History: Reports: None GI Medical History: Reports: Hepatitis - Hepatitis C, on no treatment. Musculoskeltal Medical History: Reports: Other - Chronic neck pain from C2 fracture Denies: Arthritis, Fibromyalgia Musculoskeletal History Note: Patient reports right clavicle fracture, C2 cervical spine fracture and fractured right foot Skin Medical History: Denies: Eczema, Psoriasis Psychiatric Medical History: Reports: Bipolar Disorder, Depression, Schizoaffective Disorder Hematology: Denies: Anemia, Bleeding Tendencies Infectious Medical History: Reports: Hepatitis C Past Surgical History Past Surgical History: Reports: None Social History Information Source: Patient, [facility] Records Lives with: Alone - Patient is Smoking Status: Current Every Day Smoker Electronic Cigarette use?: No Frequency of Alcohol Use: None Hx Recreational Drug Use: Yes Drugs: Cocaine, Marijuana, Other - Mushrooms, PCP Hx Prescription Drug Abuse: Yes - Oxycodone Past Social History Note: with no children - Advance Directive Resuscitation Status: Full Code Family History Family History: Reviewed & Not Pertinent, Other - Depression Parental Family History Reviewed: Yes Children Family History Reviewed: NA Sibling(s) Family History Reviewed.: NA - Stepchild. She does not report any siblings. Medication/Allergy Home Medications: Citalopram Hydrobromide [Celexa 20 mg Tablet] 20 mg PO DAILY 04/14/17 Haloperidol [Haldol 5 mg Tablet] 20 mg PO QHS 03/24/18 Acamprosate Calcium 333 mg PO DAILY 05/29/20 Buspirone HCl 5 mg PO TID 05/29/20 Omeprazole 20 mg PO DAILY 05/29/20 Quetiapine Fumarate [Seroquel 100 mg Tablet] 100 mg PO QHS 05/29/20 Allergies/Adverse Reactions: Penicillins Allergy (Verified 05/29/20 09:02) Review of Systems All systems: reviewed and no additional remarkable complaints except as stated Gastrointestinal: PRESENT: bloating - With flatulence, constipation, heartburn, other - Perianal pain Physical Exam Vital Signs: Temp Pulse Resp BP Pulse Ox 99.3 F 107 H 20 140/81 H 100 05/29/20 09:02 05/29/20 08:55 05/29/20 08:55 05/29/20 08:55 05/29/20 08:55 Intake & Output 05/28/20 05/29/20 05/30/20 06:59 06:59 06:59 Intake Total 250 Balance 250 Weight 65.9 kg General appearance: PRESENT: no acute distress, cooperative, well-developed, well-nourished Head exam: PRESENT: atraumatic, normocephalic Eye exam: PRESENT: conjunctiva pink, EOMI, PERRLA. ABSENT: scleral icterus Ear exam: PRESENT: normal external ear exam. ABSENT: bleeding, drainage Mouth exam: PRESENT: moist, tongue midline Teeth exam: ABSENT: poor dentation Neck exam: ABSENT: carotid bruit, JVD, lymphadenopathy, thyromegaly, tracheostomy Respiratory exam: PRESENT: clear to auscultation roberta, symmetrical, unlabored. ABSENT: accessory muscle use, prolonged expiratory phas, rales, rhonchi, tachypnea, wheezes Cardiovascular exam: PRESENT: RRR, +S1, +S2. ABSENT: bradycardia, diastolic murmur, irregular rhythm, systolic murmur, tachycardia GI/Abdominal exam: PRESENT: normal bowel sounds, soft. ABSENT: distended, guarding, mass, tenderness Rectal exam: PRESENT: deferred Gentrourinary exam: ABSENT: indwelling catheter Extremities exam: PRESENT: full ROM. ABSENT: calf tenderness, joint swelling, pedal edema, +1 edema Musculoskeletal exam: PRESENT: ambulatory, full ROM, normal inspection. ABSENT: deformity, dislocation Neurological exam: PRESENT: alert, awake, oriented to person, oriented to place, oriented to time, oriented to situation, CN II-XII grossly intact Psychiatric exam: ABSENT: agitated, anxious Focused psych exam: ABSENT: delusional, paranoid Skin exam: PRESENT: dry, normal color, warm. ABSENT: rash Results Laboratory Results: 05/29/20 09:50 05/29/20 09:50 05/29/20 05/29/20 05/29/20 09:50 09:50 09:50 WBC 14.7 H RBC 3.93 Hgb 11.1 L Hct 33.8 L MCV 86 MCH 28.2 MCHC 32.7 RDW 15.0 H Plt Count 378 Seg Neutrophils % Not Reportable Sodium 137.2 Potassium 4.3 Chloride 112 H Carbon Dioxide 26 Anion Gap 1 L BUN 15 Creatinine 0.61 Est GFR ( Amer) > 60 Glucose 122 H Calcium 9.8 Total Bilirubin 0.2 AST 20 Alkaline Phosphatase 132 H Total Protein 7.6 Albumin 3.6 Serum HCG, Qual NEGATIVE Urine Color Urine Appearance Urine pH Ur Specific [place] Urine Protein Urine Glucose (UA) Urine Ketones Urine Blood Urine Nitrite Ur Leukocyte Esterase Urine WBC (Auto) Urine RBC (Auto) 05/29/20 09:50 WBC RBC Hgb Hct MCV MCH MCHC RDW Plt Count Seg Neutrophils % Sodium Potassium Chloride Carbon Dioxide Anion Gap BUN Creatinine Est GFR ( Amer) Glucose Calcium Total Bilirubin AST Alkaline Phosphatase Total Protein Albumin Serum HCG, Qual Urine Color YELLOW Urine Appearance CLOUDY Urine pH 7.0 Ur Specific [place] 1.018 Urine Protein NEGATIVE Urine Glucose (UA) NEGATIVE Urine Ketones NEGATIVE Urine Blood NEGATIVE Urine Nitrite NEGATIVE Ur Leukocyte Esterase MODERATE H Urine WBC (Auto) 10 Urine RBC (Auto) 10 Assessment and Plan - Diagnosis (1) Perirectal abscess Is this a current diagnosis for this admission?: Yes Plan: Patient is on levofloxacin as she is allergic to penicillin. She will be going to the operating room and Dr. Haro will be incising and draining the lesion. (2) Candiduria Is this a current diagnosis for this admission?: Yes Plan: Initiate Diflucan therapy until urine culture results are available. Urinalysis revealed budding yeast. (3) Genital herpes Qualifiers: Herpes simplex infection site: unspecified Qualified Code(s): A60.00 - Herpesviral infection of urogenital system, unspecified Is this a current diagnosis for this admission?: Yes Plan: Per the emergency department physician. Acyclovir was initiated and I will continue same. (4) Bipolar 1 disorder with moderate kary Is this a current diagnosis for this admission?: Yes Plan: This is a chronic issue that is perpetuated by noncompliance and use of illicit drugs as well as improper use of cough preparations. Psychiatry has evaluated t he patient. I will reconsult if necessary. (5) Phencyclidine (PCP) use disorder, severe Is this a current diagnosis for this admission?: Yes Plan: The patient has tested positive for phencyclidine at every visit to the emergency department for 3 years. I did discuss with psychiatry and they confirmed that she constantly uses phencyclidine in addition to abusing cough medication. (6) Severe dextromethorphan use disorder Is this a current diagnosis for this admission?: Yes Plan: Patient freely admits that he abuses dextromethorphan-containing products and has done so consistently for years. (7) Cigarette nicotine dependence Qualifiers: Substance use status: uncomplicated Qualified Code(s): F17.210 - Nicotine dependence, cigarettes, uncomplicated Is this a current diagnosis for this admission?: Yes Plan: Patient continues to smoke 1/2 pack of cigarettes daily. I have ordered a 14 mg nicotine patch. - Time Time Spent with patient: 35 or more minutes Smoking Cessation Education: 3 to 10 minutes Medications reviewed and adjusted accordingly: Yes Anticipated discharge: Home Within: within 48 hours
[2020-05-29] MEDS ORDERED: MORPHINE SULFATE 10 MG/ML INJ IV PRN ×2 (14:58→19:23)
[2020-05-29] MEDS ORDERED: HALOPERIDOL 5 MG TABLET PO PRN (14:59)
[2020-05-29] MEDS ORDERED: PROMETHAZINE HCL 25 MG TABLET PO PRN (15:00)
[2020-05-29] MEDS: ACYCLOVIR 200 MG CAPSULE PO SCH ×2 (16:38→22:05)
[2020-05-29] MEDS: LACTOBACILLUS ACIDOPHILUS 250 MG TAB PO SCH (17:58)
[2020-05-29] MEDS ORDERED: PROPOFOL INJ 200 MG/20 ML VIAL IV ONE (19:01)
[2020-05-29] MEDS ORDERED: MIDAZOLAM 2 MG/2 ML INJ ONE (19:01)
[2020-05-29] MEDS ORDERED: MORPHINE SULFATE 10 MG/ML INJ ONE (19:01)
[2020-05-29] MEDS ORDERED: FENTANYL CITRATE INJ/PF 100 MCG/2 ML AMPUL ONE (19:01)
[2020-05-29] MEDS ORDERED: MEPERIDINE HCL/PF INJ 25 MG/1 ML DISP.SYRIN IV PRN (19:23)
[2020-05-29] MEDS ORDERED: DIPHENHYDRAMINE HCL 50 MG/ML VIAL IV PRN (19:23)
[2020-05-29] MEDS ORDERED: OXYCODONE-ACETAMINOPHEN 5-325 MG TABLET PO PRN ×2 (19:23)
[2020-05-29] MEDS ORDERED: PROMETHAZINE HCL INJ 25 MG/1 ML VIAL IV PRN ×2 (19:23)
[2020-05-29] MEDS ORDERED: FENTANYL CITRATE INJ/PF 100 MCG/2 ML AMPUL IV PRN ×3 (19:23)
[2020-05-29] MEDS ORDERED: BUPIVACAINE HCL 0.5 % INJ/PF 30 ML SDV ONE (19:31)
--- NOTE | 2020-05-29 19:53 | Operative Report ---
Operative Report DATE OF SURGERY: 05/29/20 PREOPERATIVE DIAGNOSIS: Abscess right gluteal area POSTOPERATIVE DIAGNOSIS: Same OPERATION: Incision and drainage of abscess right gluteal area SURGEON: ASHVIN GARCIA ANESTHESIA: LMAC TISSUE REMOVED OR ALTERED: Pus about 5 cc COMPLICATIONS: None ESTIMATED BLOOD LOSS: 15 cc QUANTITATIVE BLOOD LOSS: 15 INTRAOPERATIVE FINDINGS: Abscess along the right gluteal area close to the coccyx region. Abscess cavity roughly measured about 4 x 4 cm.x 4 cm PROCEDURE: After adequate IV sedation patient was placed in left lateral decubitus position. The sacrococcygeal area and the gluteal areas were then prepped and draped in the usual sterile fashion. Appropriate timeout was then called. Local anesthesia infiltrated around the abscess cavity were it started to drain. The opening was then enlarged with a hemostat and a lot of purulent material extruded out. Specimen for culture was obtained. Next a vertical incision was made distally and proximally for a distance of about 3 cm. The cavity was then digitally examined no loculations were noted. Next the surface of the cavity was then curetted. Was then irrigated. Hemostasis obtained with cautery with bleeding primarily around skin and subcutaneous areas. The cavity roughly measured about 4 x 4 x 4 cm. With appears to be not going through the fascia. It was then packed with half inch iodoform gauze. Sterile 4 x 4 and ABD pad was used to dress the wound. Patient tolerated procedure well. Needle instrument sponge count were all correct and brought to the recovery room in satisfactory condition.
[2020-05-29] MEDS: HEPARIN SOD (PORCINE) 5,000 UNIT/ML 1 ML VIAL SUBCUT SCH (21:31)
[2020-05-29] MEDS ORDERED: QUETIAPINE FUMARATE 100 MG TABLET PO SCH (22:00)
[2020-05-29] MEDS ORDERED: NICOTINE 14 MG/24 HR PATCH.TD24 TD ONE (22:00)
[2020-05-30] MEDS: KETOROLAC TROMETHAMINE INJ/PF 30 MG/1 ML SDV IV SCH ×4 (00:12→17:18)
[2020-05-30] MEDS: HEPARIN SOD (PORCINE) 5,000 UNIT/ML 1 ML VIAL SUBCUT SCH ×2 (05:22→14:12)
[2020-05-30] MEDS: ACYCLOVIR 200 MG CAPSULE PO SCH ×2 (05:22→14:12)
[2020-05-30] MEDS ORDERED: PANTOPRAZOLE SODIUM 20 MG TABLET.DR PO SCH (06:00)
[2020-05-30 06:36] LABS: ABSOLUTE EOSINOPHILS # (AUTO) 0.2 10^3/uL (0.0-0.6); ABSOLUTE MONOCYTES (AUTO) 0.7 10^3/uL (0.1-1.4); ABSOLUTE NEUT (AUTO) 4.4 10^3/uL (1.7-8.2); BASOPHILS % (AUTO) 0.6 % (0-2); EOSINOPHILS % (AUTO) 2.3 % (0-6); HEMATOCRIT 31.9 % (36.0-47.0); HEMOGLOBIN 10.3 g/dL (12.0-15.5); LYMPHOCYTES % (AUTO) 27.5 % (13-45); MEAN CORPUSCULAR HEMOGLOBIN 27.8 pg (27.0-33.4); MEAN CORPUSCULAR HGB CONC 32.4 g/dL (32.0-36.0); MEAN CORPUSCULAR VOLUME 86 fl (80-97); MONOCYTES % (AUTO) 9.7 % (3-13); PLATELET COUNT 311 10^3/uL (150-450); RED BLOOD COUNT 3.73 10^6/uL (3.72-5.28); RED CELL DISTRIBUTION WIDTH 15.4 % (11.5-14.0); SEGMENTED NEUTROPHILS % (AUTO) 59.9 % (42-78); TOTAL CELLS COUNTED % (AUTO) 100 %; WHITE BLOOD COUNT 7.3 10^3/uL (4.0-10.5)
[2020-05-30 07:03] LABS: ALBUMIN 2.8 g/dL (3.5-5.0); ALKALINE PHOSPHATASE 89 U/L (38-126); ASPARTATE AMINO TRANSFERASE 17 U/L (14-36); BILIRUBIN,TOTAL 0.1 mg/dL (0.2-1.3); BLOOD UREA NITROGEN 12 mg/dL (7-20); CALCIUM 8.9 mg/dL (8.4-10.2); GLUCOSE 110 mg/dL (75-110); POTASSIUM 4.3 mmol/L (3.6-5.0); TOTAL PROTEIN 6.2 g/dL (6.3-8.2)
[2020-05-30 07:13] LABS: CARBON DIOXIDE 28 mmol/L (22-30); CHLORIDE 110 mmol/L (98-107)
[2020-05-30 07:14] LABS: ANION GAP -2 (5-19)
--- NOTE | 2020-05-30 09:01 | PDOC PROGRESS REPORT ---
Subjective Progress Note for:: 05/30/20 Reason For Visit: RECTAL ABSCESS, BIPOLAR WENCESLAO, SUBSTANCE ABUSE Physical Exam Vital Signs: Temp Pulse Resp BP Pulse Ox 97.1 F 70 18 101/55 L 99 05/30/20 01:00 05/30/20 01:00 05/30/20 01:00 05/30/20 01:00 05/30/20 01:00 Intake & Output 05/29/20 05/30/20 05/31/20 06:59 06:59 06:59 Intake Total 2750 Output Total 10 Balance 2740 Weight 66.9 kg Results Laboratory Results: 05/30/20 05:50 05/30/20 05:50 05/29/20 05/29/20 05/29/20 09:50 09:50 09:50 WBC 14.7 H RBC 3.93 Hgb 11.1 L Hct 33.8 L MCV 86 MCH 28.2 MCHC 32.7 RDW 15.0 H Plt Count 378 Seg Neutrophils % Not Reportable Sodium 137.2 Potassium 4.3 Chloride 112 H Carbon Dioxide 26 Anion Gap 1 L BUN 15 Creatinine 0.61 Est GFR ( Amer) > 60 Glucose 122 H Calcium 9.8 Magnesium Total Bilirubin 0.2 AST 20 Alkaline Phosphatase 132 H Total Protein 7.6 Albumin 3.6 Serum HCG, Qual NEGATIVE Urine Color Urine Appearance Urine pH Ur Specific [place] Urine Protein Urine Glucose (UA) Urine Ketones Urine Blood Urine Nitrite Ur Leukocyte Esterase Urine WBC (Auto) Urine RBC (Auto) 05/29/20 05/30/20 05/30/20 09:50 05:50 05:50 WBC 7.3 RBC 3.73 Hgb 10.3 L Hct 31.9 L MCV 86 MCH 27.8 MCHC 32.4 RDW 15.4 H Plt Count 311 Seg Neutrophils % 59.9 Sodium 136.2 L Potassium 4.3 Chloride 110 H Carbon Dioxide 28 Anion Gap -2 L BUN 12 Creatinine 0.48 L Est GFR ( Amer) > 60 Glucose 110 Calcium 8.9 Magnesium 2.1 Total Bilirubin 0.1 L AST 17 Alkaline Phosphatase 89 Total Protein 6.2 L Albumin 2.8 L Serum HCG, Qual Urine Color YELLOW Urine Appearance CLOUDY Urine pH 7.0 Ur Specific [place] 1.018 Urine Protein NEGATIVE Urine Glucose (UA) NEGATIVE Urine Ketones NEGATIVE Urine Blood NEGATIVE Urine Nitrite NEGATIVE Ur Leukocyte Esterase MODERATE H Urine WBC (Auto) 10 Urine RBC (Auto) 10 Assessment & Plan - Diagnosis (1) Pilonidal abscess Is this a current diagnosis for this admission?: Yes - Plan Summary Plan Summary: 30-year-old female status post incision and drainage of a pilonidal abscess. I removed her packing today. Her wound appears clean. Plan for home health to assist with dressing changes and packing. Okay for discharge from a surgical standpoint at this time. Transition to oral antibiotics. Surgery will sign off. Please renotify with any questions or concerns.
--- NOTE | 2020-05-30 09:32 | EKG REPORT ---
SEVERITY:- BORDERLINE ECG - SINUS RHYTHM PROBABLE LEFT ATRIAL ABNORMALITY : Confirmed by: Leanna Harrell 30-May-2020 09:31:18
[2020-05-30] MEDS ORDERED: LEVOFLOXACIN 750 MG/D5W RTU 750 MG/150 ML RTUPB IV SCH (10:00)
[2020-05-30] MEDS ORDERED: NICOTINE 14 MG/24 HR PATCH.TD24 TD SCH (10:00)
[2020-05-30] MEDS: LACTOBACILLUS ACIDOPHILUS 250 MG TAB PO SCH ×2 (10:53→17:18)
--- NOTE | 2020-05-30 15:59 | PDOC DISCHARGE SUMMARY ---
Impression - Admit/DC Date/PCP Admission Date/Primary Care Provider: 05/29/20 13:54 HERMAN IVY, Discharge Date: 05/30/20 - Discharge Diagnosis (1) Perirectal abscess Is this a current diagnosis for this admission?: Yes (2) Candiduria Is this a current diagnosis for this admission?: Yes (3) Genital herpes Is this a current diagnosis for this admission?: Yes (4) Bipolar 1 disorder with moderate kary Is this a current diagnosis for this admission?: Yes (5) Phencyclidine (PCP) use disorder, severe Is this a current diagnosis for this admission?: Yes (6) Severe dextromethorphan use disorder Is this a current diagnosis for this admission?: Yes (7) Cigarette nicotine dependence Is this a current diagnosis for this admission?: Yes (8) Hepatitis C Is this a current diagnosis for this admission?: Yes - Additional Information Resuscitation Status: Full Code Discharge Diet: Regular Discharge Activity: Activity As Tolerated Referrals: [facility] [Provider Group] - 06/10/20 2:30 pm (Appointment is with Dr Cm.) Prescriptions: Acyclovir [Acyclovir 400 mg Tablet] 400 mg PO Q8 #10 tablet Levofloxacin [Levaquin 500 mg Tablet] 500 mg PO DAILY #3 tablet Home Medications: Citalopram Hydrobromide [Celexa 20 mg Tablet] 20 mg PO DAILY 04/14/17 Haloperidol [Haldol 5 mg Tablet] 20 mg PO QHS 03/24/18 Acamprosate Calcium 333 mg PO DAILY 05/29/20 Buspirone HCl 5 mg PO TID 05/29/20 Omeprazole 20 mg PO DAILY 05/29/20 Quetiapine Fumarate [Seroquel 100 mg Tablet] 100 mg PO QHS 05/29/20 Acyclovir [Acyclovir 400 mg Tablet] 400 mg PO Q8 #10 tablet 05/30/20 Lactobacillus Acidophilus [Bacid 250 mg Tablet] 500 mg PO BID tab 05/30/20 Levofloxacin [Levaquin 500 mg Tablet] 500 mg PO DAILY #3 tablet 05/30/20 Nicotine [Nicoderm 14 mg/24 Hr Transdermal Patch] 1 each TD DAILY patch.td24 05/30/20 Simethicone [Mylicon 80 mg Chewable Tablet] 80 mg PO QIDP PRN tab.chew 05/30/20 History of Present Illiness History of Present Illness: MACHO RODRIGUEZ is a 30 year old female with a long psychiatric history. She states that approximately 4 days ago she noticed some discomfort in the perianal area. 3 days ago she started to notice some bleeding and this has been intermittent over the last 3 days. She did receive analgesia and so she is not in significant pain at the moment. She has a long psychiatric history and tends to abuse cough medicine. She also takes Neurontin. She has been on multiple other medications in the past. Her medical history includes (per the patient) PTSD, ADHD, bipolar disorder and anxiety. She has been tried on multiple medications and will discontinue medications on her own at times. She does have a white blood cell count of 14.7. Serum chemistries are grossly within normal limits. Urinalysis shows moderate leukocyte esterase with yeast present. 10 white blood cells per high-power field. Urine drug screen was positive for PCP. We are going to admit the patient to the hospitalist service to manage psychiatric illness. Surgery will be taking the patient to the OR later today to incise and drain the lesion. Hospital Course Hospital Course: The patient had an unremarkable hospital course. She tolerated the incision and drainage of lesion without difficulty. She is amenable to discharge on antibiotics and follow-up with general surgery. Physical Exam Vital Signs: Temp Pulse Resp BP Pulse Ox 97.1 F 78 18 97/48 L 100 05/30/20 11:55 05/30/20 11:55 05/30/20 11:55 05/30/20 11:55 05/30/20 11:55 Intake & Output 05/29/20 05/30/20 05/31/20 06:59 06:59 06:59 Intake Total 2750 Output Total 10 Balance 2740 Weight 66.9 kg Respiratory exam: PRESENT: clear to auscultation roberta, symmetrical, unlabored. ABSENT: rales, rhonchi, tachypnea, wheezes Cardiovascular exam: PRESENT: RRR, +S1, +S2 GI/Abdominal exam: PRESENT: normal bowel sounds, soft. ABSENT: tenderness Results Laboratory Results: WBC 7.3 10^3/uL (4.0-10.5) 05/30/20 05:50 RBC 3.73 10^6/uL (3.72-5.28) 05/30/20 05:50 Hgb 10.3 g/dL (12.0-15.5) L 05/30/20 05:50 Hct 31.9 % (36.0-47.0) L 05/30/20 05:50 MCV 86 fl (80-97) 05/30/20 05:50 MCH 27.8 pg (27.0-33.4) 05/30/20 05:50 MCHC 32.4 g/dL (32.0-36.0) 05/30/20 05:50 RDW 15.4 % (11.5-14.0) H 05/30/20 05:50 Plt Count 311 10^3/uL (150-450) 05/30/20 05:50 Lymph % (Auto) 27.5 % (13-45) 05/30/20 05:50 [place] % (Auto) 9.7 % (3-13) 05/30/20 05:50 Eos % (Auto) 2.3 % (0-6) 05/30/20 05:50 Baso % (Auto) 0.6 % (0-2) 05/30/20 05:50 Absolute Neuts (auto) 4.4 10^3/uL (1.7-8.2) 05/30/20 05:50 Absolute Lymphs (auto) 2.0 10^3/uL (0.5-4.7) 05/30/20 05:50 Absolute Monos (auto) 0.7 10^3/uL (0.1-1.4) 05/30/20 05:50 Absolute Eos (auto) 0.2 10^3/uL (0.0-0.6) 05/30/20 05:50 Absolute Basos (auto) 0.0 10^3/uL (0.0-0.2) 05/30/20 05:50 Total Counted 100 05/29/20 09:50 Seg Neutrophils % 59.9 % (42-78) 05/30/20 05:50 Seg Neuts % (Manual) 72 % (42-78) 05/29/20 09:50 Lymphocytes % (Manual) 14 % (13-45) 05/29/20 09:50 Monocytes % (Manual) 12 % (3-13) 05/29/20 09:50 Eosinophils % (Manual) 1 % (0-6) 05/29/20 09:50 Basophils % (Manual) 1 % (0-2) 05/29/20 09:50 Abs Neuts (Manual) 10.6 10^3/uL (1.7-8.2) H 05/29/20 09:50 Abs Lymphs (Manual) 2.1 10^3/uL (0.5-4.7) 05/29/20 09:50 Abs Monocytes (Manual) 1.8 10^3/uL (0.1-1.4) H 05/29/20 09:50 Absolute Eos (Manual) 0.1 10^3/uL (0.0-0.6) 05/29/20 09:50 Abs Basophils (Manual) 0.1 10^3/uL (0.0-0.2) 05/29/20 09:50 Toxic Granulation SLIGHT 05/29/20 09:50 Toxic Vacuolation PRESENT 05/29/20 09:50 Platelet Comment ADEQUATE 05/29/20 09:50 Anisocytosis SLIGHT 05/29/20 09:50 Sodium 136.2 mmol/L (137-145) L 05/30/20 05:50 Potassium 4.3 mmol/L (3.6-5.0) 05/30/20 05:50 Chloride 110 mmol/L (98-107) H 05/30/20 05:50 Carbon Dioxide 28 mmol/L (22-30) 05/30/20 05:50 Anion Gap -2 (5-19) L 05/30/20 05:50 BUN 12 mg/dL (7-20) 05/30/20 05:50 Creatinine 0.48 mg/dL (0.52-1.25) L 05/30/20 05:50 Est GFR ( Amer) > 60 (>60) 05/30/20 05:50 Est GFR (MDRD) Non-Af > 60 (>60) 05/30/20 05:50 Glucose 110 mg/dL (75-110) 05/30/20 05:50 Calcium 8.9 mg/dL (8.4-10.2) 05/30/20 05:50 Magnesium 2.1 mg/dL (1.6-2.3) 05/30/20 05:50 Total Bilirubin 0.1 mg/dL (0.2-1.3) L 05/30/20 05:50 Direct Bilirubin 0.0 mg/dL (0.0-0.4) 05/30/20 05:50 Neonat Total Bilirubin Not Reportable 05/30/20 05:50 Neonat Direct Bilirubin Not Reportable 05/30/20 05:50 Neonat Indirect Bili Not Reportable 05/30/20 05:50 AST 17 U/L (14-36) 05/30/20 05:50 ALT 14 U/L (<35) 05/30/20 05:50 Alkaline Phosphatase 89 U/L (38-126) 05/30/20 05:50 Total Protein 6.2 g/dL (6.3-8.2) L 05/30/20 05:50 Albumin 2.8 g/dL (3.5-5.0) L 05/30/20 05:50 Serum HCG, Qual NEGATIVE (NEGATIVE) 05/29/20 09:50 Urine Color YELLOW 05/29/20 09:50 Urine Appearance CLOUDY 05/29/20 09:50 Urine pH 7.0 (5.0-9.0) 05/29/20 09:50 Ur Specific [place] 1.018 05/29/20 09:50 Urine Protein NEGATIVE mg/dL (NEGATIVE) 05/29/20 09:50 Urine Glucose (UA) NEGATIVE mg/dL (NEGATIVE) 05/29/20 09:50 Urine Ketones NEGATIVE mg/dL (NEGATIVE) 05/29/20 09:50 Urine Blood NEGATIVE (NEGATIVE) 05/29/20 09:50 Urine Nitrite NEGATIVE (NEGATIVE) 05/29/20 09:50 Urine Bilirubin NEGATIVE (NEGATIVE) 05/29/20 09:50 Urine Urobilinogen NEGATIVE mg/dL (<2.0) 05/29/20 09:50 Ur Leukocyte Esterase MODERATE (NEGATIVE) H 05/29/20 09:50 Urine WBC (Auto) 10 /HPF 05/29/20 09:50 Urine RBC (Auto) 10 /HPF 05/29/20 09:50 U Hyaline Cast (Auto) 3 /LPF 05/29/20 09:50 Urine Bacteria (Auto) 1+ /HPF 05/29/20 09:50 Squamous Epi Cells Auto 21 /HPF 05/29/20 09:50 Urine Mucus (Auto) RARE /LPF 05/29/20 09:50 Urine Yeast (Budding) PRESENT /HPF 05/29/20 09:50 Urine Ascorbic Acid 40 (NEGATIVE) H 05/29/20 09:50 Bacteria (Wet Prep) 4+ BACTERIA SEEN 05/29/20 12:13 Trichomonas (Wet Prep) NO TRICHOMONAS SEEN 05/29/20 12:13 Vaginal WBC 1+ WBCS SEEN 05/29/20 12:13 Vaginal RBC NO RBCS SEEN 05/29/20 12:13 Vaginal Yeast NO YEAST SEEN 05/29/20 12:13 Salicylates < 1.0 mg/dL (2.0-20.0) L 05/29/20 09:50 Urine Opiates Screen NEGATIVE 05/29/20 09:50 Urine Methadone Screen NEGATIVE 05/29/20 09:50 Acetaminophen < 10 ug/mL (10-30) L 05/29/20 09:50 Ur Barbiturates Screen NEGATIVE 05/29/20 09:50 Ur Phencyclidine Scrn UNCONFIRMED POSITIVE 05/29/20 09:50 Ur Amphetamines Screen NEGATIVE 05/29/20 09:50 U Benzodiazepines Scrn NEGATIVE 05/29/20 09:50 Urine Cocaine Screen NEGATIVE 05/29/20 09:50 U Marijuana (THC) Screen NEGATIVE 05/29/20 09:50 Serum Alcohol < 10 mg/dL (NONE DETECTED) 05/29/20 09:50 Chlamydia DNA (PCR) NOT DETECTED (NOT DETECT) 05/29/20 12:13 COVID-19 Source Cancelled 05/29/20 13:35 COVID-19 (CHRISTY) Cancelled 05/29/20 13:35 N.gonorrhoeae DNA (PCR) NOT DETECTED (NOT DETECT) 05/29/20 12:13 SARS-CoV-2 (PCR) NEGATIVE (NEGATIVE) 05/29/20 14:35 Plan Health Concerns: Patient's ongoing substance abuse in light of her significant mental illness Plan of Treatment: Discharged on antibiotics and follow-up with surgery Goals: Resolution of perirectal abscess Time Spent: Greater than 30 Minutes Stroke Is this a Stroke Patient?: No Acute Heart Failure - Is this a Heart Failure Patient?: No
[2020-05-30 16:51] VITALS: BP 138/75
== END 2020-05-30 18:00 | disposition home or self-care (01) ==
LOC: ER 08:51 → INTOOBSV 13:54 → EH 13:54 → 4S 20:22
PROVIDERS: ADMIT Hospitalist; ATTEND Hospitalist
DX: K61.1 Rectal abscess (principal); A60.00 Herpesviral infection of urogenital system, unspecified; F31.89 Other bipolar disorder; B37.49 Other urogenital candidiasis; F16.90 Hallucinogen use, unspecified, uncomplicated; F19.10 Other psychoactive substance abuse, uncomplicated; B18.2 Chronic viral hepatitis C; F43.10 Post-traumatic stress disorder, unspecified; F90.9 Attention-deficit hyperactivity disorder, unspecified type; F41.9 Anxiety disorder, unspecified; G89.29 Other chronic pain; M54.2 Cervicalgia; F17.210 Nicotine dependence, cigarettes, uncomplicated; R14.0 Abdominal distension (gaseous); R12 Heartburn; K59.00 Constipation, unspecified; F11.11 Opioid abuse, in remission; Z91.14 Patient's other noncompliance with medication regimen; Z03.818 Encounter for observation for suspected exposure to other biological agents ruled out; R82.998 Other abnormal findings in urine; Z88.0 Allergy status to penicillin
CPT/HCPCS: 99406; 10060; 93005; 99285; 96375; 96365; 96368; 36415 ×2; 87040; 87086; 87070; 87205; 87210; 80307 ×4; 83735; 84703; 85025 ×2; 87075; 87077; 80053 ×2; 81001; 87186; 87491; 87591; 93010; 99140; 00300; G0378 ×3; U0003; A9270 ×11; J2250; J3490 ×3; J1644 ×2; J0133; J3010; J1885; J2270; J7030; J1450; J2704; J1956 ×2; C9803; 300; 87635

== ENCOUNTER 2020-07-02 12:27 | Emergency (ER) | payer MEDICARE, MEDICAID ==
[2020-07-02 12:34] VITALS: BP 173/95
--- NOTE | 2020-07-02 12:55 | ER Document Report ---
HPI - HPI Time Seen by Provider: 07/02/20 12:49 Notes: 30-year-old female presents emergency room for complaints of a bug bite to her left upper thigh that she noticed today. Patient denies any history of MRSA. No [id number] medications have been tried. Worse with time, nothing makes better. Has not tried any warm compresses. Patient states that she did smoke a cigarette prior to coming to the emergency room MEDICATIONS: I agree with the patient medications as charted by the RN. ALLERGIES: I agree with the allergies as charted by the RN. PAST MEDICAL HISTORY/PAST SURGICAL HISTORY: Reviewed and agree as charted by RN. SOCIAL HISTORY: Reviewed and agree as charted by RN. FAMILY HISTORY: No significant familial comorbid conditions directly related to patient complaint EXAM: Reviewed vital signs as charted by RN. REVIEW OF SYSTEMS:reviewed vital signs by RN CONSTITUTIONAL : Denies fever, chills, or sweats. Denies recent illness. EENT: Denies eye, ear, throat, or mouth pain or symptoms. Denies nasal or sinus congestion or discharge. Denies throat, tongue, or mouth swelling or difficulty swallowing. CARDIOVASCULAR: Denies chest pain. Denies palpitations or racing or irregular heart beat. Denies ankle edema. RESPIRATORY: Denies cough, cold, or chest congestion. Denies shortness of breath, difficulty breathing, or wheezing. GASTROINTESTINAL: Denies abdominal pain or distention. Denies nausea, vomiting, or diarrhea. Denies blood in vomitus, stools, or per rectum. Denies black, tarry stools. Denies constipation. GENITOURINARY: Denies difficulty urinating, painful urination, burning, frequency, blood in urine, or discharge. FEMALE GENITOURINARY: Denies vaginal bleeding, heavy or abnormal periods, irregular periods. Denies vaginal discharge or odor. MUSCULOSKELETAL: Denies back or neck pain or stiffness. Denies joint pain or swelling. SKIN: Bug bite to left upper thigh. denies rash, lesions or sores. HEMATOLOGIC : Denies easy bruising or bleeding. LYMPHATIC: Denies swollen, enlarged glands. NEUROLOGICAL: Denies confusion or altered mental status. Denies passing out or loss of consciousness. Denies dizziness or lightheadedness. Denies headache. Denies weakness or paralysis or loss of use of either side. Denies problems with gait or speech. Denies sensory loss, numbness, or tingling. Denies seizures. PSYCHIATRIC: Denies anxiety or stress. Denies depression, suicidal ideation, or homicidal ideation. ALL OTHER SYSTEMS REVIEWED AND NEGATIVE. PHYSICAL EXAMINATION: GENERAL: Well-appearing, well-nourished and in no acute distress. HEAD: Atraumatic, normocephalic. EYES: Pupils equal round and reactive to light, extraocular movements intact, conjunctiva are normal. ENT: Nares patent, oropharynx clear without exudates. Moist mucous membranes. NECK: Normal range of motion, supple without lymphadenopathy LUNGS: Breath sounds clear to auscultation bilaterally and equal. No wheezes rales or rhonchi. HEART: Regular rate and rhythm without murmurs ABDOMEN: Soft, nontender, nondistended abdomen. No guarding, no rebound. No masses appreciated. Female : deferred Musculoskeletal: Normal range of motion, no pitting or edema. No cyanosis. NEUROLOGICAL: Cranial nerves grossly intact. Normal speech, normal gait. Normal sensory, motor exams PSYCH: Normal mood, hyper, rapid speech SKIN: Warm, Dry, normal turgor, no rashes or lesions noted. Proximately 1 cm x 1 cm area of erythema induration and warmth to touch. No surrounding erythema. no surrounding lymphadenopathy, erythema Dictation was performed using [employer] voice recognition software - REPRODUCTIVE Reproductive: DENIES: : Past Medical History - General Information source: Patient - Social History Smoking Status: Unknown if Ever Smoked Family History: Reviewed & Not Pertinent, Other - Depression - Past Medical History Cardiac Medical History: Denies: Hx Atrial Fibrillation, Hx Congestive Heart Failure, Hx Coronary Artery Disease, Hx Heart Attack Pulmonary Medical History: Reports: Hx Respiratory Failure - From overdose Denies: Hx Asthma, Hx COPD, Hx Pneumonia Neurological Medical History: Denies: Hx Seizures Endocrine Medical History: Denies: Hx Diabetes Mellitus Type 1, Hx Diabetes Mellitus Type 2, Hx Hyperthyroidism Renal/ Medical History: Denies: Hx Peritoneal Dialysis GI Medical History: Reports: Hx Hepatitis - Hepatitis C, on no treatment. Musculoskeletal Medical History: Denies Hx Arthritis, Denies Hx Fibromyalgia, Reports Hx Musculoskeletal Trauma - Left foot fracture Skin Medical History: Denies Hx Eczema, Denies Hx Psoriasis Psychiatric Medical History: Reports: Hx Bipolar Disorder, Hx Depression, Hx Schizoaffective Disorder, Hx Schizophrenia Infectious Medical History: Reports: Hx Hepatitis - Hepatitis C, on no treatment. - Immunizations Hx Diphtheria, Pertussis, Tetanus Vaccination: Yes Vertical Provider Document - CONSTITUTIONAL Agree With Documented VS: Yes Exam Limitations: No Limitations General Appearance: WD/WN - INFECTION CONTROL TRAVEL OUTSIDE OF THE [place] IN LAST 30 DAYS: No Course - Re-evaluation Re-evalutation: 07/02/20 13:09 afebrile, patient slightly tachycardic but states that she "drank a ton of coffee prior to coming here" and states that she feels hyper. Denies any chest pain shortness of breath, lightheadedness, dizziness. Denies any illicit drug use, patient does have a history of bipolar 1. I do not feel that patient is a harm to herself or anyone else. No focal neurological or cardiac or respiratory issues noted with her tachycardia. Patient is completely asymptomatic. Advised to follow-up with primary care provider within the next 24 hours for reevaluation. After performing a Medical Screening Examination, I estimate there is LOW risk for OPEN FRACTURE, COMPARTMENT SYNDROME, TENDON RUPTURE, ACUTE NEUROVASCULAR INJURY, or RETAINED FOREIGN BODY, thus I consider the discharge disposition reasonable. Also, there is no evidence or peritonitis, sepsis, or toxicity. I have reevaluated this patient multiple times and no significant life threatening changes are noted. The patient and I have discussed the diagnosis and risks, and we agree with discharging home with close follow-up with the understanding that symptoms and presentations can change. We also discussed returning to the Emergency Department immediately if new or worsening symptoms occur. We have discussed the symptoms which are most concerning (e.g., changing or worsening pain, fever, numbness, weakness, cool or painful digits) that necessitate immediate return. - Vital Signs Vital signs: Temp Pulse Resp BP Pulse Ox 98.4 F 118 H 20 173/95 H 98 07/02/20 12:31 07/02/20 12:31 07/02/20 12:31 07/02/20 12:31 07/02/20 12:31 Discharge - Discharge Clinical Impression: Cellulitis Qualifiers: Site of cellulitis: extremity Site of cellulitis of extremity: lower extremity Laterality: left Qualified Code(s): L03.116 - Cellulitis of left lower limb Condition: Stable Disposition: HOME, SELF-CARE Instructions: Cellulitis ([facility]), MRSA Cellulitis ([facility]) Additional Instructions: The rash is likely due to infection of your skin. You need to take the antibiotics as prescribed. Do not stop even if the rash goes away until you have completed all the antibiotics. The area of redness was traced out here in the emergency department with a marking pen. You need to return to emergency department if the redness spreads outside of this area by more than 2 cm in any direction. You should also return if you develop fevers with temperature greater than 101, persistent vomiting, worsening pain, or have any other symptoms that are concerning to you. Return immediately for any new or worsening symptoms. Follow up with primary care provider, call tomorrow to make followup appointment. Prescriptions: Clindamycin HCl 300 mg PO Q6H #28 capsule Referrals: HERMAN HAYNES, [Primary Care Provider] - Follow up as needed
== END 2020-07-02 13:03 | disposition home or self-care (01) ==
LOC: ER 12:27
DX: L03.116 Cellulitis of left lower limb (principal); S70.362A Insect bite (nonvenomous), left thigh, initial encounter; W57.XXXA Bitten or stung by nonvenomous insect and other nonvenomous arthropods, initial encounter; F17.210 Nicotine dependence, cigarettes, uncomplicated
CPT/HCPCS: 99283

== ENCOUNTER 2020-08-06 01:49 | Emergency (ER) | payer MEDICARE, MEDICAID ==
[2020-08-06] MEDS ORDERED: ONDANSETRON 4 MG TAB.RAPDIS PO ONE (02:45)
[2020-08-06 03:41] VITALS: BP 145/87
== END 2020-08-06 03:22 | disposition left against medical advice (07) ==
LOC: ER 01:49
DX: Z53.21 Procedure and treatment not carried out due to patient leaving prior to being seen by health care provider (principal)
CPT/HCPCS: S0119